=== PATIENT | female | born 1950 | race Caucasian/White ===

== ENCOUNTER 2022-04-19 13:04 | Emergency (ER) | payer MEDICARE, SELFPAY ==
--- NOTE | 2022-04-19 13:09 | ED.URI ---
HPI - URI/Sore Throat General Chief Complaint: Upper Respiratory Infection Stated Complaint: sore throat cough runny nose Time Seen by Provider: 04/19/22 13:09 Source: patient and RN notes reviewed History of Present Illness HPI Narrative: Patient is a 72-year-old female who presents the urgent care with complaints of sore throat, cough, runny nose and fever. Patient states symptoms started on and fever started last night. Patient has been taking NyQuil. States that her granddaughter was ill last week and has been on antibiotics for her illness. Patient is unsure if the granddaughter was diagnosed with strep. No other acute complaints. No acute distress noted. Patient aware of the plan of care. Some parts of this dictation were generated by voice recognition software and may contain typographical and/or grammatical inaccuracies. Related Data Home Medications Medication Instructions Recorded Confirmed buspirone 5 mg tablet 5 mg PO DAILY 04/29/21 04/19/22 digoxin 125 mcg (0.125 mg) tablet 125 mcg PO DAILY 04/29/21 04/19/22 esomeprazole magnesium 40 mg 40 mg PO DAILY 04/29/21 04/19/22 capsule,delayed release meloxicam 7.5 mg tablet 7.5 mg PO DAILY 04/29/21 04/19/22 sertraline 100 mg tablet 50 mg PO QPM 04/19/22 04/19/22 sertraline 100 mg tablet 100 mg PO QAM 04/19/22 04/19/22 Allergies Allergy/AdvReac Type Severity Reaction Status Date / Time Sulfa (Sulfonamide Allergy Severe Hives Verified 04/19/22 13:09 Antibiotics) meperidine [From Demerol] AdvReac Intermediate Vomiting Verified 04/19/22 13:09 Review of Systems Review of Systems: CONSTITUTIONAL: Reports a fever EYES: Denies visual changes, redness, or discharge. ENT: Reports of sore throat and runny nose CARDIOVASCULAR: Denies chest pain, palpitations, or edema. RESPIRATORY: Reports of cough without dyspnea GASTROINTESTINAL: Denies abdominal pain, nausea, vomiting, or diarrhea. GENITOURINARY: Denies dysuria or hematuria. SKIN: Denies rash or itching. MUSCULOSKELETAL: Denies back pain, joint pain, or myalgia. NEUROLOGIC: Denies headache, numbness, or weakness. All other systems reviewed are negative, except as documented in HPI. [facility] Past Medical History Medical History Acid reflux Arthritis Breast cancer 2014 Depression Heart palpitations Vaginal delivery x2 Surgical History Surgical History History of bilateral salpingo-oophorectomy 1975, Age 26 History of hysterectomy 1975, Age 26 History of lumpectomy 2013, left breast Family History Family History Mother Lung cancer Grandparent Cerebrovascular accident Social History Social History Smoking status: Former smoker Alcohol intake: never Substance use: never Comments At the time of my signature, I reviewed and agree with the nursing past medical, surgical, social, and family history. There is no relevant family history pertinent to the patient complaint. Exam Narrative: GENERAL: This is a well-nourished, well-developed patient, in no apparent distress. HEAD: normocephalic, atraumatic. EYES: PERRL. Sclera clear/white. Vision is grossly intact. EARS: External ears normal, auditory canals clear and without drainage, TMs normal without perforation. Hearing grossly intact. NOSE: External nose normal with no obvious nasal discharge, nares without redness, no rhinorrhea. THROAT: Mucous membranes moist, moderate erythema noted posterior pharynx with mild postnasal drainage NECK: Neck supple, non-tender without lymphadenopathy CARDIOVASCULAR: Regular rate and rhythm RESPIRATORY: Clear to auscultation. Breath sounds equal bilaterally. No wheezes, rales, or rhonchi. SKIN: warm, intact with no suspicious lesions or rash, good nino
[2022-04-19 13:12] VITALS: BP 115/94; PULSE 60; RESP 20; TEMP 36.5; O2SAT 100
[2022-04-19 13:25] VITALS: BP 115/94; PULSE 60; RESP 20; TEMP 36.5; O2SAT 100
== END 2022-04-19 13:45 | disposition home or self-care (01) ==
PROVIDERS: Emergency Provider Nurse Practitioner Family; PCP Internal Medicine Infectious Disease
DX: J02.0 Streptococcal pharyngitis (principal); Z87.891 Personal history of nicotine dependence; K21.9 Gastro-esophageal reflux disease without esophagitis; F32.A Depression, unspecified; M19.90 Unspecified osteoarthritis, unspecified site; Z85.3 Personal history of malignant neoplasm of breast
CPT/HCPCS: 87880; 99213; G0463

== ENCOUNTER 2024-05-27 14:47 | Emergency (ER) | payer MEDICARE, SELFPAY ==
[2024-05-27 15:03] VITALS: BP 134/58; PULSE 91; RESP 16; TEMP 37.2; O2SAT 98
--- NOTE | 2024-05-27 15:30 | ED_ITS ---
HPI - Wound/Laceration General Chief Complaint: Wound/Laceration Stated Complaint: fall, forehead is bleeding History of Present Illness HPI narrative: Patient fell 2 days ago and was evaluated in the emergency room with Dermabond placed to her forehead laceration. Patient is brought in today by her for evaluation of wound. No drink no drainage no bleeding no new injury. Related Data Home Medications Medication Instructions Recorded Confirmed buspirone 5 mg tablet 5 mg PO DAILY 04/29/21 04/19/22 albuterol sulfate 90 mcg/actuation inhalation 05/27/24 aerosol inhaler escitalopram oxalate 20 mg tablet mg 05/27/24 Allergies Allergy/AdvReac Type Severity Reaction Status Date / Time Sulfa (Sulfonamide Allergy Severe Hives Verified 05/27/24 15:11 Antibiotics) morphine Allergy Rash Verified 05/27/24 15:25 meperidine [From Demerol] AdvReac Intermediate Vomiting Verified 05/27/24 15:11 Review of Systems Review of Systems: CONSTITUTIONAL: Denies fever, chills, or sweats. EYES: Denies visual changes, redness, or discharge. ENT: Denies rhinorrhea, congestion, sore throat, or otalgia. CARDIOVASCULAR: Denies chest pain, palpitations, or edema. RESPIRATORY: Denies cough or dyspnea. GASTROINTESTINAL: Denies abdominal pain, nausea, vomiting, or diarrhea. GENITOURINARY: Denies dysuria or hematuria. SKIN: Denies rash or itching. MUSCULOSKELETAL: Denies back pain, joint pain, or myalgia. NEUROLOGIC: Denies headache, numbness, or weakness. PSYCHIATRIC: Denies anxiety or depression. [facility] Past Medical History Medical History Acid reflux Arthritis Breast cancer 2013 Depression Heart palpitations Vaginal delivery x2 Surgical History Surgical History History of bilateral salpingo-oophorectomy 1975, Age 26 History of hysterectomy 1975, Age 26 History of lumpectomy 2013, left breast Family History Family History Mother Lung cancer Grandparent Cerebrovascular accident Social History Social History (Reviewed 04/29/21 @ 13:14 by ERICKA Schmid Smoking status: Former smoker Alcohol intake: never Substance use: never Comments At time of signature, agree with nursing past medical, surgical, social and family history. There is no relevant family history pertinent to the presenting complaint Exam Narrative: GENERAL: Well-appearing, well-nourished, and in no acute distress. HEAD: Normocephalic, atraumatic. EYES: PERRLA and EOMI. ENT: Nares clear, no rhinorrhea or epistaxis. Mucous membranes moist. NECK: Supple. CHEST: Clear to auscultation. No respiratory distress. HEART: Regular rate and rhythm. No murmur heard. Normal peripheral pulses. ABDOMEN: Soft, nontender, nondistended, normal active bowel sounds. EXTREMITIES: Normal range of motion. No edema. SKIN: Warm, dry, no rash. Dermabond in place to laceration to forehead no bleeding noted edges well approximated no concern for secondary infection NEURO: No focal deficits. Alert and oriented x3. Kartik Coma Scale Eye Opening: Spontaneous 4 Kartik Coma Scale Motor: Obeys Commands 6 Kartik Coma Scale Verbal: Oriented 5 Kartik Coma Scale Total 15 Course Course Level of Care: Express Care Visit Vital Signs Vital signs: Vital Signs Temperature 37.2 C 05/27/24 15:03 Pulse Rate 91 05/27/24 15:03 Respiratory Rate 16 05/27/24 15:03 Blood Pressure 134/58 L 05/27/24 15:03 Pulse Oximetry 98 05/27/24 15:03 Oxygen Delivery Room Air 05/27/24 15:03 Temperature 37.2 C 05/27/24 15:03 Pulse Rate 91 05/27/24 15:03 Respiratory Rate 16 05/27/24 15:03 Blood Pressure 134/58 L 05/27/24 15:03 Pulse Oximetry 98 05/27/24 15:03 Oxygen Delivery Room Air 05/27/24 15:03 Please AISHWARYA schedule a followup visit with your personal physician for further evaluation and treatment. Including recheck and discussion of your blood pressure. If your symptoms persist, change or worsen significantly before you can contact your personal physician then please, without delay, go to the emergency department for further evaluation Discharge Plan Discharge Clinical Impression: Visit for wound check Patient Disposition: Home, Self-Care Condition: Stable Additional Instructions: Wash gently with warm soap and water do not scrub the area. Monitor for any signs or symptoms of infection Follow-up with primary care provider in 2-3 days If any new or worsening symptoms please go to ER immediately further evaluation treatment Prescriptions: No Action escitalopram oxalate 20 mg tablet albuterol sulfate 90 mcg/actuation HFA aerosol inhaler INHALATION buspirone 5 mg tablet 5 mg PO DAILY Follow-up/Referrals: Blaine,MD Jarod [Primary Care Provider] -
== END 2024-05-27 15:36 | disposition home or self-care (01) ==
PROVIDERS: Emergency Provider Nurse Practitioner Family; PCP Internal Medicine Infectious Disease
DX: Z48.01 Encounter for change or removal of surgical wound dressing (principal); Z87.891 Personal history of nicotine dependence; K21.9 Gastro-esophageal reflux disease without esophagitis; M19.90 Unspecified osteoarthritis, unspecified site; F32.A Depression, unspecified; Z85.3 Personal history of malignant neoplasm of breast
CPT/HCPCS: 99211; G0463

== ENCOUNTER 2024-08-27 12:44 | Emergency (ER) | payer MEDICARE, SELFPAY ==
--- OUTSIDE RECORDS SUMMARY | 2024-08-27 12:48 | XMS_ITS | Encounter Summary ---
Author Organization [facility] Address [address] [place] [address] Phone Care Team Providers Care Deputy Grand Jury Name Role Phone Jarod Valladares MD Primary Care Provider [phone] Jyothi Tanner MD Unavailable Donald Shirley MD, Michael Shultz Unavailable [phone] Marcio Bello MD Unavailable [phone] Catherine Joshi MD Unavailable [phone] Alea Larson MA Unavailable [phone] Encounter Details Date Type Department Care Team (Late st Contact Info) Description 08/24/2017 Orders Only [facility] [address] [place] [address] Jarod Valladares MD [address] [place] [id number] Social History Tobacco Use Types Packs/Day Years Used Date Smoking Tobacco: Former Smokeless Tobacco: Never Comments Unknown Sex and Gender Information Value Date Recorded Sex Assigned at Not on file Legal Sex Female 1:44 AM [employer] Gender Identity Not on file Sexual Orientation Not on file documented as of this encounter Plan of Treatment Not on file documented as of this encounter Procedures Procedure Name Priority Date/Time Associated Diagnosis Comments SCAN - RADIOLOGY/IMAGING 08/24/2017 3:04 PM [facility] documented in this encounter Results * SCAN - RADIOLOGY/IMAGING (08/24/2017 3:04 PM [employer]) Anatomical Region Laterality Modality Other Jarod Valladares MD Final Resu lt documented in this encounter Visit Diagnoses Not on filedocumented in this encounter Additional Health Concerns Infection Onset Date Last Indicated Resolved Time COVID: Suspected 10/26/2022 10/26/2022 10/26/2022 2:53 PM CDT documented as of this encounter Care Teams Deputy Grand Jury Relationship Specialty Start Date End Date Jarod Valladares MD [address] [place] [id number] PCP - General 10/16/16 Jyothi Tanner MD [address] [place] [address] [address] [place] [address] Referring Physician Medical Oncology 10/07/17 Michael Bennett Jr., MD [address] [place] [id number] Surgeon Orthopedic Surgery 10/07/17 Marcio Bello MD [address] [place] [address] Consulting Physician Gastroenterology 10/07/17 Catherine Joshi MD [address] [place] [phone] Size Worker Obstetrics and Gynecology 04/21/19 Alea Larson MA [address] [place] [address] [address] [place] [address] ACO Care Demolition Expert 05/26/24 05/29/24 documented as of this encounter
--- OUTSIDE RECORDS SUMMARY | 2024-08-27 12:48 | XMS_ITS | Clinical Summary ---
Author Organization [facility] Address [address] [place] [address] Phone Care Team Providers Care Wool Shearer Name Role Phone Unavailable Unavailable Unavailable Reason for Visit and Chief Complaint gynecologic annual exam - The Chief Complaint is: Annual Problems Includes: Problems addressed during this encounter and other active Problems All Visits Onset Date Resolved Date Provider Condition S tatus Breast Cancer 09/28/2013 ELIAS MCRAE MD Active Last Documented On 09/28/2013 2:50PM ; [facility] Note: S/P L breast lumpectomy Cervical Cancer 09/20/2012 ELIAS Cruz MD Active Last Documented On 09/20/2012 4:12PM ; [facility] Note: At age 26, treated with hysterecto my Depressive Disorder NEC 09/20/2012 ELIAS MCRAE MD Active Last Documented On 09/20/2012 4:08PM ; [facility] Note: takes zoloft Osteoarthritis 09/20/2012 ELIAS MCRAE MD Active Last Documented On 09/20/2012 4:09PM ; [facility] Note: uses lidoderm patch PALPITATIONS 09/20/2012 ELIAS MCRAE MD Active Last Documented On 09/20/2012 4:10PM ; [facility] Note: takes digoxin REFLUX ESOPHAGITIS 09/20/2012 ELIAS HARE MD Active Last Documented On 09/20/2012 4:08PM ; [facility] Note: takes nexium Uterine Cancer 09/20/2012 ELIAS MCRAE MD Active Last Documented On 09/20/2012 4:13PM ; [facility] Note: At age 26, treated with hysterecto my Plan of Treatment She follows with breast specialist and has MRI scheduled in March, and she also sees oncology Q3 months at [facility] for h/o breast cancer Pap done since 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 Pending Tests Order Diagnosis Results Due Ordering Shahzad brewster In office procedures - *Clia Waived Labs *FIT Test (Fecal Occult Test) Encntr for hydrate control tender exam (general) (routine) w/o abn findings 12/19/15 ELIAS MCRAE MD Last Documented On 8 8:55AM ; [facility] Instructions to patient Instructions for patient : B reast Self Exam discussed Last Documented On 6 9:12AM ; [facility] Education and Decision Aids were provided during visit for: STD screening offered and de clined Last Documented On 6 9:12AM ; [facility] Bone Mineral Density Screeni ng guidelines reviewed Last Documented On 6 9:12AM ; [facility] Patient Education: Daily page cium and vitamin D Last Documented On 6 9:12AM ; [facility] Patient Education: weight be aring exercise Last Documented On 6 9:12AM ; [facility] Colonoscopy screening guidel truong discussed Last Documented On 6 9:12AM ; [facility] Assessments Includes: Assessments from this encounter Findings - Routine pelvic exam - Last Documented On 12/05/2015 9:26AM ; [facility] - Screening Malig. Neoplasm Rectum - Last Documented On 12/05/2015 9:26AM ; [facility] Instructions Includes: Instructions from this encounter Instructions to patient Instructions for patient : B reast Self Exam discussed Last Documented On 6 9:12AM ; [facility] Education and Decision Aids were provided during visit for: STD screening offered and de clined Last Documented On 6 9:12AM ; [facility] Bone Mineral Density Screeni ng guidelines reviewed Last Documented On 6 9:12AM ; [facility] Patient Education: Daily page cium and vitamin D Last Documented On 6 9:12AM ; [facility] Patient Education: weight be aring exercise Last Documented On 6 9:12AM ; [facility] Colonoscopy screening guidel truong discussed Last Documented On 6 9:12AM ; [facility] Medical Equipment - Implanted Devices Includes: Current Devices No Medical Equipment Recorded Medications Includes: Medications discussed during this encounter and other current Medications Current Medications (continue as prescribed) Prolia 60MG/ML Subcutaneous Solution 02/16/2017 Prov ider: Diagnosis: Last Documented On 7 10:44AM By CARIDAD PEREZ ; [facility] BusPIRone HCl 5MG Oral Tablet 02/16/2017 Provider: Diagnosis: Last Documented On 7 10:23AM By ELISHA PEREZ ; [facility] Calcium + D 500-1000-40 MG-UNT-MCG Tablet Chewable Provider: Diagnosis: Last Documented On 12/05/2015 9:10AM By REBEKAH BELLA MA ; [facility] Exemestane 25 MG Tablet 08/23/2014 Provider: Diagnosis: Last Documented On 10/23/2014 9:12AM By MEGHANN MONTES Lul ; [facility] Zoloft 100 MG OR TABS 09/28/2013 Provider: Diagnosis: Last Documented On 09/28/2013 2:46PM By GER COLBY ; [facility] Zoloft 50 MG OR TABS 09/28/2013 Provider: Diagnosis: Last Documented On 09/28/2013 2:47PM By GER COLBY ; [facility] Digoxin 250 MCG OR TABS 09/20/2012 Provider: Diagnosis: takes for palpitations Last Documented On 3 3:14PM By CARLY FLORES LPN ; [facility] NexIUM 40 MG OR PACK 09/20/2012 Provider: Diagnosis: Last Documented On 3 3:14PM By CARLY FLORES LPN ; [facility] Past Medications on file Nitrofurantoin Macrocrystal 100 MG Capsule 02/08/2015 - 02/15/2015 Provider: MARC MORA BC Diagnosis: HEMATURIA NOS 1 BID USE DIRECTED W/FOOD Last Documented On 5 11:09AM By MARC MORA-BC ; [facility] Terconazole 0.4% VA CREA 04/06/2013 - 04/13/2013 Provi ramila: ELIAS MCRAE MD Diagnosis: i applicatorful per vagina daily for 7 days Last Documented On 04/06/2013 1:23PM By ELIAS MCRAE MD ; [facility] Premarin 0.625 MG OR TABS 09/15/2011 - 09/09/2012 Prov ider: HEIDY ROBINS M.D. Diagnosis: Last Documented On 2 1:09PM By DR. 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/[place] Last Documented On 1 11:03AM By CARLY FLORES LPN ; [facility] Medications Administered Includes: Administered Medications from this encounter No Administered Medications Recorded Vital Signs Includes: Vital Signs from this encounter Vital Name 12/05/2015 09:03A Blood Pressure Sitting (mmHg) 132/80 Height (in) 65.5 Weight (lb) 141 Body Mass Index (kg/m2) 23.1 Body Surface Area (m2) 1.7 Last Documented: On 12/05/2015 9:07AM ; [facility] Results Includes: Results discussed during this encounter No Results Recorded For Specified Dates History of Present Illness Includes: History of Present Illness from this encounter LACIE GUPTA is a 65 year old female. - No unusual bleeding. - No pelvic pain. - No vaginal discharge. Social History Description Last Updated In monogamous relationship 12/05/2015 Last Documented On 6 9:26AM ; [facility] Non-smoker 12/05/2015 Last Documented On 6 9:26AM ; [facility] Sexually active 12/05/2015 Last Documented On 6 9:26AM ; [facility] Smoking status : Former smoker 6 Last Documented On 6 9:26AM ; [facility] Procedures and Surgical History Includes: Procedures from this encounter Procedures Code Diagnosis Performing Provider Service L ocation Service Date Clinical summary provided to patient Last Documented On 6 9:12AM ; [facility] cervical Pap smear 03012 Last Documented On 6 9:12AM ; [facility] fecal occult blood test was negative 72302 Last Documented On 6 9:12AM ; [facility] Surgical History Last Updated History of hysterectomy [facility] 02/16/2017 Last Documented On 6 9:08AM ; [facility] Surgical / procedural histor y R knee surgery ~R thumb surgery ~L breast lumpectomy ~hernia surgery september 2013 ~surgery on porlasped bladder 05/201512/05/2015 Last Documented On 6 9:26AM ; [facility] Surgical / procedural history 12/05/2015 Last Documented On 6 9:26AM ; [facility] History of hysterectomy at age 26 2015 Last Documented On 6 9:26AM ; [facility] Surgical history unchanged 02/08/2015 Last Documented On 6 9:08AM ; [facility] History of cholecystectomy 09/20/2012 Last Documented On 6 9:08AM ; [facility] History of total abdominal hysterectomy 09/20/2012 Last Documented On 6 9:08AM ; [facility] History of tubal ligation 09/20/2012 Last Documented On 6 9:08AM ; [facility] Bilateral salpingo-oophorectomy 09/09/19 11 Last Documented On 6 9:08AM ; [facility] Breast Biopsy 09/09/2010 Last Documented On 6 9:08AM ; [facility] History of appendectomy 09/09/2010 Last Documented On 6 9:08AM ; [facility] No Dilation + Curettage 09/09/2010 Last Documented On 6 9:08AM ; [facility] No Ectopic surgery 09/09/2010 Last Documented On 6 9:08AM ; [facility] No Endometrial Ablation 09/09/2010 Last Documented On 6 9:08AM ; [facility] No history of Loop electrode excision of cervix (LEEP) 09/09/2010 Last Documented On 6 9:08AM ; [facility] No history of vaginal hysterectomy 09/09 Last Documented On 6 9:08AM ; [facility] No Laparoscopic Hysterectomy 09/09/2010 Last Documented On 6 9:08AM ; [facility] No Ovarian Cystectomy 09/09/2010 Last Documented On 6 9:08AM ; [facility] No Tonsillectomy 09/09/2010 Last Documented On 6 9:08AM ; [facility] Medical History Includes: Medical History addressed during this encounter Description Last Updated Last pap smear date 201212/05/2015 Last Documented On 6 9:26AM ; [facility] Last mammogram date: 08/201512/05/2015 Last Documented On 6 9:26AM ; [facility] Result: normal 12/05/2015 Last Documented On 6 9:26AM ; [facility] A colonoscopy was performed 2012 016 Last Documented On 6 9:26AM ; [facility] 2 12/05/2015 Last Documented On 6 9:26AM ; [facility] LMP: 1982 12/05/2015 Last Documented On 6 9:26AM ; [facility] Para 2 12/05/2015 Last Documented On 6 9:26AM ; [facility] Patient recently had a dexa scan 08/07/19 14 12/05/2015 Last Documented On 6 9:26AM ; [facility] Result: normal 12/05/2015 Last Documented On 6 9:26AM ; [facility] Family History Includes: Family History addressed during this encounter No Family History Recorded Review of Systems Includes: Review of Systems from this encounter Systemic: No recent weight change. Head: No headache. Eyes: No vision problems. Otolaryngeal: No hoarseness. Cardiovascular: No chest pain or discomfort and no palpitations. Pulmonary: No shortness of breath. Gastrointestinal: Normal appetite. No nausea, no vomiting, and no hematochezia. No diarrhea and no constipation. Genitourinary: No nocturia. No urinary loss of control and no dysuria. Musculoskeletal: No arthralgias and no localized joint swelling. Neurological: No tingling and no numbness. Psychological: No anxiety, no depression, and no sleep disturbances. Mental Status Includes: Mental Status from this encounter Description No anxiety Functional Status Includes: Functional Status from this encounter No Functional Status Recorded Physical Exam Includes: Physical Exam from this encounter Allergies Includes: Active Allergies Substance Type Reaction Onset Date Resolved Date Statu s Tetanus Toxoid Adsorbed Intolerance 07/17/2009 Active Last Documented On 7 10:23AM ; [facility] Sulfa Antibiotics Allergy 09/09/2010 A ctive Last Documented On 7 10:23AM ; [facility] Morphine Sulfate Allergy 02/16/2017 Ac tive Last Documented On 7 10:24AM ; [facility] Demerol Allergy 09/20/2012 Active Last Documented On 7 10:23AM ; [facility] Encounters Encounter Provider Location Date Check-In Time Check-Out Time Diagnosis MOTOR OVERHAULER EXAM ELIAS MCRAE MD [facility] UNDERGROUND HEAVY EQUIPMENT OPERATOR 6 9:00AM 9:23AM Routine Pelvic Exam,Hoa Hogan. Neoplasm Rectum Clinical Notes Includes: Clinical Notes from this encounter No Clinical Notes Recorded
--- OUTSIDE RECORDS SUMMARY | 2024-08-27 12:48 | XMS_ITS | Clinical Summary ---
Author Organization [facility] Address [address] [place] [address] Care Team Providers Care Manager Cosmetic Name Role Phone Unknown, Provider Primary Care Provider Unavaila ble Source Comments [facility],non-owned Affiliates and Associated Physician Practices is amultiple site organization consisting of ambulatory clinics and hospital sitesin [place], [place], [place] and [place]. This disclosure is being madepursuant to the Care Everywhere program and may not contain all information available regarding this patient. Last updated 18.[facility] Allergies Active Allergy Reactions Criticality Noted Date Comments Meperidine Nausea and/or Vomiting 11/19/2017 Morphine Nausea and/or Vomiting 11/19/2017 Sulfa Drugs Nausea and/or Vomiting 11/19/2017 Medications * Be aware that medications may not be up to date on this document. Alwaysverify current medications with the patient. Medication Sig Dispensed Refills Start Date End Date Status albuterol HFA (PROVENTIL;VENTOLIN;P ROAIR) 108 (90 BASE) MCG/ACT inhaler Inhale 2 puffs by mouth every 6 hours as needed Active busPIRone (BUSPAR) 5 MG tablet Take 5 mg by mouth 3 times daily Active DIGOXIN PO Active esomeprazole (NEXIUM) 40 MG capsule Take 40 mg by mouth daily before breakfast Active exemestane (AROMASIN) 25 MG tablet Take 25 mg by mouth once daily Active sertraline (ZOLOFT) 100 MG tablet Take 100 mg by mouth once daily Active Active Problems Problem Noted Date Diagnosed Date Bilateral chronic otitis media 11/19/2017 Tympanic membrane perforation, left 11/19/2017 Incomplete tear of right rotator cuff 08/26/2017 Acute bronchitis due to other specified organism s 06/07/2017 Chronic eczematous otitis externa of both ears 0 01/21/2017 Conductive hearing loss, tympanic membrane 01/21 Dysfunction of both eustachian tubes 01/21/2017 Retraction of tympanic membrane of both ears 12/2016 Osteoporosis 01/07/2017 Chronic low back pain 12/02/2013 Overview (11/19/2017): Overview: Chronic low back pain Gastroesophageal reflux disease without esophagi tis 12/02/2013 Overview (11/19/2017): Overview: GERD (gastroesophageal reflux disease) Major depressive disorder in full remission 11/16 Overview (11/19/2017): Overview: Depression Menopausal syndrome 12/02/2013 Overview (11/19/2017): Overview: Menopausal syndrome Supraventricular tachycardia 12/02/2013 Overview (11/19/2017): Overview: SVT (supraventricular tachycardia) History of malignant neoplasm of breast 08/02/19 14 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 11/17/2012 Resolved Problems Problem Noted Date Diagnosed Date Resolved Date Urinary tract infection 01/14/201711/16 Social History Tobacco Use Types Packs/Day Years Used Date Smoking Tobacco: Former Cigarettes Q uit: 2013 Smokeless Tobacco: Never Alcohol Use Standard Drinks/Week Comments No 0 (1 standard drink = 0.6 oz pur e alcohol) Sex and Gender Information Value Date Recorded Sex Assigned at Not on file Gender Identity Not on file Sexual Orientation Not on file Last Filed Vital Signs Vital Sign Reading Time Taken Comments Blood Pressure 139/92 11/19/2017 2:36 PM CDT Pulse 67 11/19/2017 2:36 PM CDT Temperature - - Respiratory Rate - - Oxygen Saturation - - Inhaled Oxygen Concentration - - Weight 68 kg (150 lb) 11/19/2017 2:36 PM CDT Height 167.6 cm (5' 6 ) 11/19/2017 2:36 PM CDT Body Mass Index 24.21 11/19/2017 2:36 PM CDT Plan of Treatment Health Maintenance Due Date Last Done Comments BONE DENSITY TESTING 1950 COLOGUARD (AGES 45-75) - COL ON CA SCREENING 1950 COLON MONITORING 1950 COLONOSCOPY - COLON CA SCREENING 1950 CT COLONOGRAPHY - COLON CA SCREENING 1950 Colorectal Cancer Screening 1950 FIT - COLON CA SCREENING 1950 FLEX SIG - COLON CA SCREENING 1950 LIPID TESTING 1950 MAMMOGRAM 1950 MEDICARE AWV 12 MONTHS 1950 HEPATITIS C SCREENING 04/06/1969 DTAP/TDAP/TD VACCINES (1 - Tdap) 1970 PNEUMOCOCCAL VACCINE 50+ (1 of 1 - PCV) 2001 ZOSTER VACCINE (1 of 2) 2001 COVID-19 VACCINE (1 - 2023-2 5 season) 2024 INFLUENZA VACCINE (#1) 2024 DEPRESSION SCREENING 07/19/2024 Respiratory Syncytial Virus (RSV) Vaccine Pt: or over 60 yrs (1 - 1-dose 75+ series) 2026 HEPATITIS B VACCINE Aged Out No longe r eligible based on patient's age to complete this topic HIB VACCINE Aged Out No longer eligi ble based on patient's age to complete this topic HPV VACCINE Aged Out No longer eligi ble based on patient's age to complete this topic MENINGOCOCCAL (Group B) VACCINE Aged Out No longer eligible based on patient's age to complete this topic MENINGOCOCCAL VACCINE Aged Out No juan olegario eligible based on patient's age to complete this topic Care Teams Manager Cosmetic Relationship Specialty Start Date End Date Unknown, Provider PCP - General 11/16/17
--- OUTSIDE RECORDS SUMMARY | 2024-08-27 12:48 | XMS_ITS | Clinical Summary ---
Author Organization [facility] Address [address] [place] [address] Phone Care Team Providers Care Field Cane Scaler Helper Name Role Phone Unavailable Unavailable Unavailable Reason for Visit and Chief Complaint CANCELLED Problems Includes: Problems addressed during this encounter and other active Problems All Visits Onset Date Resolved Date Provider Condition S tatus Breast Cancer 09/28/2013 ELIAS MCRAE MD Active Last Documented On 09/28/2013 2:50PM ; [facility] Note: S/P L breast lumpectomy Cervical Cancer 09/20/2012 ELIAS Cruz MD Active Last Documented On 09/20/2012 4:12PM ; [facility] Note: At age 26, treated with hysterecto my Depressive Disorder NEC 09/20/2012 ELIAS MCRAE MD Active Last Documented On 09/20/2012 4:08PM ; [facility] Note: takes zoloft Osteoarthritis 09/20/2012 ELIAS MCRAE MD Active Last Documented On 09/20/2012 4:09PM ; [facility] Note: uses lidoderm patch PALPITATIONS 09/20/2012 ELIAS MCRAE MD Active Last Documented On 09/20/2012 4:10PM ; [facility] Note: takes digoxin REFLUX ESOPHAGITIS 09/20/2012 ELIAS HARE MD Active Last Documented On 09/20/2012 4:08PM ; [facility] Note: takes nexium Uterine Cancer 09/20/2012 ELIAS MCRAE MD Active Last Documented On 09/20/2012 4:13PM ; [facility] Note: At age 26, treated with hysterecto my Plan of Treatment No Plan of Treatment Recorded Assessments Includes: Assessments from this encounter No Assessments Recorded Medical Equipment - Implanted Devices Includes: Current Devices No Medical Equipment Recorded Medications Includes: Medications discussed during this encounter and other current Medications Current Medications (continue as prescribed) Prolia 60MG/ML Subcutaneous Solution 02/16/2017 Prov ider: Diagnosis: Last Documented On 7 10:44AM By CARIDAD PEREZ ; [facility] BusPIRone HCl 5MG Oral Tablet 02/16/2017 Provider: Diagnosis: Last Documented On 7 10:23AM By ELISHA PEREZ ; [facility] Calcium + D 500-1000-40 MG-UNT-MCG Tablet Chewable Provider: Diagnosis: Last Documented On 12/05/2015 9:10AM By REBEKAH BELLA MA ; [facility] Exemestane 25 MG Tablet 08/23/2014 Provider: Diagnosis: Last Documented On 10/23/2014 9:12AM By MEGHANN PEREZ ; [facility] Zoloft 100 MG OR TABS 09/28/2013 Provider: Diagnosis: Last Documented On 09/28/2013 2:46PM By GER COLBY ; [facility] Zoloft 50 MG OR TABS 09/28/2013 Provider: Diagnosis: Last Documented On 09/28/2013 2:47PM By GER COLBY ; [facility] Digoxin 250 MCG OR TABS 09/20/2012 Provider: Diagnosis: takes for palpitations Last Documented On 3 3:14PM By CARLY FLORES LPN ; [facility] NexIUM 40 MG OR PACK 09/20/2012 Provider: Diagnosis: Last Documented On 3 3:14PM By CARLY FLORES LPN ; [facility] Medications Administered Includes: Administered Medications from this encounter No Administered Medications Recorded Results Includes: Results discussed during this encounter No Results Recorded For Specified Dates History of Present Illness Includes: History of Present Illness from this encounter No History of Present Illness Recorded Social History No Social History Recorded - Smoking Status Unknown Medical History Includes: Medical History addressed during this encounter No Medical History Recorded Family History Includes: Family History addressed during this encounter No Family History Recorded Review of Systems Includes: Review of Systems from this encounter No Review of Systems Recorded Mental Status Includes: Mental Status from this encounter No Mental Status Recorded Functional Status Includes: Functional Status from this encounter No Functional Status Recorded Physical Exam Includes: Physical Exam from this encounter No Physical Exam Recorded Allergies Includes: Active Allergies Substance Type Reaction Onset Date Resolved Date Statu s Tetanus Toxoid Adsorbed Intolerance 07/17/2009 Active Last Documented On 7 10:23AM ; [facility] Sulfa Antibiotics Allergy 09/09/2010 A ctive Last Documented On 7 10:23AM ; [facility] Morphine Sulfate Allergy 02/16/2017 Ac tive Last Documented On 7 10:24AM ; [facility] Demerol Allergy 09/20/2012 Active Last Documented On 7 10:23AM ; [facility] Encounters Encounter Provider Location Date Check-In Time Check-Out Time Diagnosis CANCELLED ELIAS MCRAE MD [facility] TERRITORY SALES REPRESENTATIVE 06/18/2014 11:00AM 11:59PM Clinical Notes Includes: Clinical Notes from this encounter No Clinical Notes Recorded
--- OUTSIDE RECORDS SUMMARY | 2024-08-27 12:48 | XMS_ITS | Encounter Summary ---
Author Organization [facility] Address [address] [place] [address] Phone Care Team Providers Care Commercial Construction Project Manager Name Role Phone Jarod Valladares MD Primary Care Provider [phone] Jyothi Tanner MD Unavailable Donald Shirley MD, Michael Shultz Unavailable [phone] Marcio Bello MD Unavailable [phone] Catherine Joshi MD Unavailable [phone] Alea Larson MA Unavailable [phone] Encounter Details Date Type Department Care Team (Late st Contact Info) Description 08/24/2017 Orders Only [facility] [address] [place] [address] Jarod Valladares MD [address] [place] [id number] Social History Tobacco Use Types Packs/Day Years Used Date Smoking Tobacco: Former Smokeless Tobacco: Never Comments Unknown Sex and Gender Information Value Date Recorded Sex Assigned at Not on file Legal Sex Female 1:44 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 BEVERAGE SUPERVISOR Gender Identity Not on file Sexual Orientation Not on file documented as of this encounter Plan of Treatment Not on file documented as of this encounter Procedures Procedure Name Priority Date/Time Associated Diagnosis Comments SCAN - LABS 08/24/2017 3:10 PM FOOD BEVERAGE SUPERVISOR documented in this encounter Results * SCAN - LABS (08/24/2017 3:10 PM FOOD BEVERAGE SUPERVISOR) Jarod Valladares MD Final Resu lt documented in this encounter Visit Diagnoses Not on filedocumented in this encounter Additional Health Concerns Infection Onset Date Last Indicated Resolved Time COVID: Suspected 10/26/2022 10/26/2022 10/26/2022 2:53 PM CDT documented as of this encounter Care Teams Commercial Construction Project Manager Relationship Specialty Start Date End Date Jarod Valladares MD [address] [place] [id number] PCP - General 10/16/16 Jyothi Tanner MD [address] [place] [address] [address] [place] [address] Referring Physician Medical Oncology 10/07/17 Michael Bennett Jr., MD [address] [place] [id number] Surgeon Orthopedic Surgery 10/07/17 Marcio Bello MD [address] [place] [phone] Consulting Physician Gastroenterology 10/07/17 Catherine Joshi MD [address] [place] [phone] Talent Manager Obstetrics and Gynecology 04/21/19 Alea Larson MA [address] [place] [address] [address] [place] [address] ACO Care Manager Transportation Planning 05/26/24 05/29/24 documented as of this encounter
--- OUTSIDE RECORDS SUMMARY | 2024-08-27 12:48 | XMS_ITS ---
Author Organization [facility] Address [address] [place] [address] Phone Care Team Providers Care Rn Pediatric Icu Name Role Phone Unavailable Unavailable Unavailable Problems Includes: Active, inactive, and resolved Problems All Visits Onset Date Resolved Date Provider Condition S tatus Breast Cancer 09/28/2013 ELIAS MCRAE MD Active Last Documented On 09/28/2013 2:50PM ; [facility] Note: S/P L breast lumpectomy Cervical Cancer 09/20/2012 ELIAS Cruz MD Active Last Documented On 09/20/2012 4:12PM ; [facility] Note: At age 26, treated with hysterecto my Depressive Disorder NEC 09/20/2012 ELIAS MCRAE MD Active Last Documented On 09/20/2012 4:08PM ; [facility] Note: takes zoloft Osteoarthritis 09/20/2012 ELIAS MCRAE MD Active Last Documented On 09/20/2012 4:09PM ; [facility] Note: uses lidoderm patch PALPITATIONS 09/20/2012 ELIAS MCRAE MD Active Last Documented On 09/20/2012 4:10PM ; [facility] Note: takes digoxin REFLUX ESOPHAGITIS 09/20/2012 ELIAS HARE MD Active Last Documented On 09/20/2012 4:08PM ; [facility] Note: takes nexium Uterine Cancer 09/20/2012 ELIAS MCRAE MD Active Last Documented On 09/20/2012 4:13PM ; [facility] Note: At age 26, treated with hysterecto my Cardiac Failure 09/09/2010 ELIAS Cruz MD Inactive Last Documented On 3 4:07PM ; [facility] HEARTBURN 09/09/2010 ELIAS MCRAE MD Inactive Last Documented On 3 4:07PM ; [facility] Note: takes nexium for gerd HYPERTENSION NOS 09/09/2010 ELIAS MCRAE MD In active Last Documented On 3 4:07PM ; [facility] PRESENILE DEPRESSION 09/09/2010 ELIAS Hardin Inactive Last Documented On 3 4:08PM ; [facility] Note: takes zoloft Plan of Treatment Findings Encounter Date Ordered Clinical summary pro vided to patient PROBLEM VISIT with MARC TORRES RN [facility] 02/08/2015 Last Documented On 5 12:26PM ; 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 Instructions to patient Instructions for patient : B reast Self Exam discussed Last Documented On 7 10:28AM ; [facility] Instructions for patient : B reast Self Exam discussed Last Documented On 6 9:12AM ; [facility] Instructions for patient : B reast Self Exam discussed Last Documented On 5 9:15AM ; [facility] Instructions for patient : B reast Self Exam discussed Last Documented On 4 2:53PM ; [facility] Instructions for patient : K eep the area around the vulva dry. Allow the area to have exposure to air. Avoid irritants such as fabric softeners and perfumed soaps.~ Last Documented On 3 1:25PM ; [facility] Instructions for patient : B reast Self Exam discussed Last Documented On 3 3:38PM ; [facility] Instructions for patient : B reast Self Exam discussed. Reviewed monthly self breast examination and technique Last Documented On 2 1:07PM ; [facility] Recommend diet and exercise at least 30 min three times per week Last Documented On 2 1:07PM ; [facility] Discussed Gardasil vaccinati on and recommend vaccination for HPV prevention. Handout given. Patient undertsands sexual transmission of high-risk HPV and association with abnormal pap smear and cervical cancer. recommend to decrease high risk behaviors such as: number of sexual partners, smoking, and contraceptive use Last Documented On 2 1:07PM ; [facility] Recommend preventative vacci nation including but not limited to influenza/flu vaccine, DTP, Rubella, Hepatitis B vaccination series Last Documented On 2 1:07PM ; [facility] Recommend annual pap smear e xamination or every three year if high risk hpv negative and 3 consecutive normal pap examination during preceding three years Last Documented On 2 1:07PM ; [facility] Recommend TSH, fasting gluco se, fasting lipid panel, CBC, BMP Last Documented On 2 1:07PM ; [facility] Recommend Calcium supplement ation and weight bearing exercise Last Documented On 2 1:07PM ; [facility] Recommended Bone Density Last Documented On 2 1:07PM ; [facility] Recommended Colonoscopy Pt r eferred to Gastroenetrologist. Pt understands that recommendation for colonoscopy is every 10 years after the age of 50 or age of 40 if first degree relative with history of colon cancer. Patient understands that failure to follow recommendation can lead to delayed diagnosis of colon cancer and patient accepts all responsibility regarding scheduling and follow up with estate planner Last Documented On 2 1:07PM ; [facility] Instructions for patient : B reast Self Exam discussed. Reviewed monthly self breast examination and technique Last Documented On 1 1:52PM ; [facility] Recommend diet and exercise at least 30 min three times per week Last Documented On 1 1:52PM ; [facility] Discussed Gardasil vaccinati on and recommend vaccination for HPV prevention. Handout given. Patient undertsands sexual transmission of high-risk HPV and association with abnormal pap smear and cervical cancer. recommend to decrease high risk behaviors such as: number of sexual partners, smoking, and contraceptive use Last Documented On 1 1:52PM ; [facility] Recommend preventative vacci nation including but not limited to influenza/flu vaccine, DTP, Rubella, Hepatitis B vaccination series Last Documented On 1 1:52PM ; [facility] Recommend annual pap smear e xamination or every three year if high risk hpv negative and 3 consecutive normal pap examination during preceding three years Last Documented On 1 1:52PM ; [facility] Recommend TSH, fasting gluco se, fasting lipid panel, CBC, BMP Last Documented On 1 1:52PM ; [facility] Recommend Calcium supplement ation and weight bearing exercise Last Documented On 1 1:52PM ; [facility] Recommended Bone Density Last Documented On 1 1:52PM ; [facility] Recommended Colonoscopy Pt r eferred to Gastroenetrologist. Pt understands that recommendation for colonoscopy is every 10 years after the age of 50 or age of 40 if first degree relative with history of colon cancer. Patient understands that failure to follow recommendation can lead to delayed diagnosis of colon cancer and patient accepts all responsibility regarding scheduling and follow up with estate planner Last Documented On 1 1:52PM ; [facility] Education and Decision Aids were provided during visit for: STD screening offered and de clined Last Documented On 7 10:28AM ; [facility] Bone Mineral Density Screeni ng guidelines reviewed Last Documented On 7 10:28AM ; [facility] Patient Education: Daily page cium and vitamin D Last Documented On 7 10:28AM ; [facility] Patient Education: weight be aring exercise Last Documented On 7 10:28AM ; [facility] Colonoscopy screening guidel truong discussed Last Documented On 7 10:28AM ; [facility] STD screening offered and de clined Last Documented On 6 9:12AM ; [facility] Bone Mineral Density Screeni ng guidelines reviewed Last Documented On 6 9:12AM ; [facility] Patient Education: Daily page cium and vitamin D Last Documented On 6 9:12AM ; [facility] Patient Education: weight be aring exercise Last Documented On 6 9:12AM ; [facility] Colonoscopy screening guidel truong discussed Last Documented On 6 9:12AM ; [facility] STD screening offered and de clined Last Documented On 5 9:15AM ; [facility] Bone Mineral Density Screeni ng guidelines reviewed Last Documented On 5 9:15AM ; [facility] Patient Education: Daily page cium and vitamin D Last Documented On 5 9:15AM ; [facility] Patient Education: weight be aring exercise Last Documented On 5 9:15AM ; [facility] Colonoscopy screening guidel truong discussed Last Documented On 5 9:15AM ; [facility] STD screening offered and de clined Last Documented On 4 2:53PM ; [facility] Bone Mineral Density Screeni ng guidelines reviewed Last Documented On 4 2:53PM ; [facility] Patient Education: Daily page cium and vitamin D Last Documented On 4 2:53PM ; [facility] Patient Education: weight be aring exercise Last Documented On 4 2:53PM ; [facility] Colonoscopy screening guidel truong discussed Last Documented On 4 2:53PM ; [facility] STD screening offered and de clined Last Documented On 3 3:38PM ; [facility] Bone Mineral Density Screeni ng guidelines reviewed Last Documented On 3 3:38PM ; [facility] Patient Education: Daily page cium and vitamin D Last Documented On 3 3:38PM ; [facility] Patient Education: weight be aring exercise Last Documented On 3 3:38PM ; [facility] Colonoscopy screening guidel truong discussed Last Documented On 3 3:38PM ; [facility] Assessments Includes: Assessments for all patient encounters Findings Encounter Date Routine pelvic exam [employer] EXAM with ELIAS MCRAE MD 02/16/2017 Last Documented On 7 11:40AM ; [facility] Screening Malig. Neoplasm Rectum [employer] EXAM with Dagmar MCRAE MD 02/16/2017 Last Documented On 7 11:40AM ; [facility] Routine pelvic exam [employer] EXAM with ELIAS MCRAE MD 12/05/2015 Last Documented On 6 9:26AM ; [facility] Screening Malig. Neoplasm Rectum [employer] EXAM with Dagmar MCRAE MD 12/05/2015 Last Documented On 6 9:26AM ; [facility] Hematuria PROBLEM VISIT with MARC TORRES RN [facility] 02/08/2015 Last Documented On 5 12:26PM ; [facility] Vaginal wall prolapse with pola slaughter cystocele PROBLEM VISIT with MARC TORRES RN [facility] 02/08/2015 Last Documented On 5 12:26PM ; [facility] Routine pelvic exam [employer] EXAM with ELIAS MCRAE MD 10/23/2014 Last Documented On 5 9:28AM ; [facility] Screening Malig. Neoplasm Rectum [employer] EXAM with Dagmar MCRAE MD 10/23/2014 Last Documented On 5 9:28AM ; [facility] Routine pelvic exam [employer] EXAM with ELIAS MCRAE MD 09/28/2013 Last Documented On 4 3:08PM ; [facility] Screening Malig. Neoplasm Rectum [employer] EXAM with Dagmar MCRAE MD 09/28/2013 Last Documented On 4 3:08PM ; [facility] Mackenzie albicans vulvovaginitis PROBLEM VISIT wi ELIAS MCRAE MD 04/06/2013 Last Documented On 3 1:27PM ; [facility] Routine pelvic exam NEW [employer] EXAM with ELIAS YANG MD 09/20/2012 Last Documented On 3 4:13PM ; [facility] Asymptomatic postmenopausal status [employer] EXAM with HEIDY ROBINS M.D. 09/15/2011 Last Documented On 2 1:10PM ; [facility] MAMMOGRAM SCREENING [employer] EXAM with HEIDY NUNES M.D. 09/15/2011 Last Documented On 2 1:10PM ; [facility] NORMAL FEMALE EXAM [employer] EXAM with HEIDY MARKS M.D. 09/15/2011 Last Documented On 2 1:10PM ; [facility] Screening Malig. Neoplasm Rectum [employer] EXAM with Dagmar ROBINS M.D. 09/15/2011 Last Documented On 2 1:10PM ; [facility] Lichen sclerosus et atrophicus PROBLEM VISIT wit h HEIDY ROBINS M.D. 02/18/2011 Last Documented On 1 3:16PM ; [facility] URINARY FREQUENCY PROBLEM VISIT with HEIDY SCHMITZ M.D. 02/18/2011 Last Documented On 1 3:16PM ; [facility] Asymptomatic postmenopausal status [employer] EXAM with HEIDY ROBINS M.D. 09/09/2010 Last Documented On 1 2:01PM ; [facility] MAMMOGRAM SCREENING [employer] EXAM with HEIDY NUNES M.D. 09/09/2010 Last Documented On 1 2:01PM ; [facility] NORMAL FEMALE EXAM [employer] EXAM with HEIDY MARKS M.D. 09/09/2010 Last Documented On 1 2:01PM ; [facility] Screening Malig. Neoplasm Rectum [employer] EXAM with Dagmar ROBINS M.D. 09/09/2010 Last Documented On 1 2:01PM ; [facility] Instructions Includes: Instructions for all patient encounters Instructions to patient Instructions for patient : B reast Self Exam discussed Last Documented On 7 10:28AM ; [facility] Instructions for patient : B reast Self Exam discussed Last Documented On 6 9:12AM ; [facility] Instructions for patient : B reast Self Exam discussed Last Documented On 5 9:15AM ; [facility] Instructions for patient : B reast Self Exam discussed Last Documented On 4 2:53PM ; [facility] Instructions for patient : K eep the area around the vulva dry. Allow the area to have exposure to air. Avoid irritants such as fabric softeners and perfumed soaps.~ Last Documented On 3 1:25PM ; [facility] Instructions for patient : B reast Self Exam discussed Last Documented On 3 3:38PM ; [facility] Instructions for patient : B reast Self Exam discussed. Reviewed monthly self breast examination and technique Last Documented On 2 1:07PM ; [facility] Recommend diet and exercise at least 30 min three times per week Last Documented On 2 1:07PM ; [facility] Discussed Gardasil vaccinati on and recommend vaccination for HPV prevention. Handout given. Patient undertsands sexual transmission of high-risk HPV and association with abnormal pap smear and cervical cancer. recommend to decrease high risk behaviors such as: number of sexual partners, smoking, and contraceptive use Last Documented On 2 1:07PM ; [facility] Recommend preventative vacci nation including but not limited to influenza/flu vaccine, DTP, Rubella, Hepatitis B vaccination series Last Documented On 2 1:07PM ; [facility] Recommend annual pap smear e xamination or every three year if high risk hpv negative and 3 consecutive normal pap examination during preceding three years Last Documented On 2 1:07PM ; [facility] Recommend TSH, fasting gluco se, fasting lipid panel, CBC, BMP Last Documented On 2 1:07PM ; [facility] Recommend Calcium supplement ation and weight bearing exercise Last Documented On 2 1:07PM ; [facility] Recommended Bone Density Last Documented On 2 1:07PM ; [facility] Recommended Colonoscopy Pt r eferred to Gastroenetrologist. Pt understands that recommendation for colonoscopy is every 10 years after the age of 50 or age of 40 if first degree relative with history of colon cancer. Patient understands that failure to follow recommendation can lead to delayed diagnosis of colon cancer and patient accepts all responsibility regarding scheduling and follow up with estate planner Last Documented On 2 1:07PM ; [facility] Instructions for patient : B reast Self Exam discussed. Reviewed monthly self breast examination and technique Last Documented On 1 1:52PM ; [facility] Recommend diet and exercise at least 30 min three times per week Last Documented On 1 1:52PM ; [facility] Discussed Gardasil vaccinati on and recommend vaccination for HPV prevention. Handout given. Patient undertsands sexual transmission of high-risk HPV and association with abnormal pap smear and cervical cancer. recommend to decrease high risk behaviors such as: number of sexual partners, smoking, and contraceptive use Last Documented On 1 1:52PM ; [facility] Recommend preventative vacci nation including but not limited to influenza/flu vaccine, DTP, Rubella, Hepatitis B vaccination series Last Documented On 1 1:52PM ; [facility] Recommend annual pap smear e xamination or every three year if high risk hpv negative and 3 consecutive normal pap examination during preceding three years Last Documented On 1 1:52PM ; [facility] Recommend TSH, fasting gluco se, fasting lipid panel, CBC, BMP Last Documented On 1 1:52PM ; [facility] Recommend Calcium supplement ation and weight bearing exercise Last Documented On 1 1:52PM ; [facility] Recommended Bone Density Last Documented On 1 1:52PM ; [facility] Recommended Colonoscopy Pt r eferred to Gastroenetrologist. Pt understands that recommendation for colonoscopy is every 10 years after the age of 50 or age of 40 if first degree relative with history of colon cancer. Patient understands that failure to follow recommendation can lead to delayed diagnosis of colon cancer and patient accepts all responsibility regarding scheduling and follow up with estate planner Last Documented On 1 1:52PM ; [facility] Education and Decision Aids were provided during visit for: STD screening offered and de clined Last Documented On 7 10:28AM ; [facility] Bone Mineral Density Screeni ng guidelines reviewed Last Documented On 7 10:28AM ; [facility] Patient Education: Daily page cium and vitamin D Last Documented On 7 10:28AM ; [facility] Patient Education: weight be aring exercise Last Documented On 7 10:28AM ; [facility] Colonoscopy screening guidel truong discussed Last Documented On 7 10:28AM ; [facility] STD screening offered and de clined Last Documented On 6 9:12AM ; [facility] Bone Mineral Density Screeni ng guidelines reviewed Last Documented On 6 9:12AM ; [facility] Patient Education: Daily page cium and vitamin D Last Documented On 6 9:12AM ; [facility] Patient Education: weight be aring exercise Last Documented On 6 9:12AM ; [facility] Colonoscopy screening guidel truong discussed Last Documented On 6 9:12AM ; [facility] STD screening offered and de clined Last Documented On 5 9:15AM ; [facility] Bone Mineral Density Screeni ng guidelines reviewed Last Documented On 5 9:15AM ; [facility] Patient Education: Daily page cium and vitamin D Last Documented On 5 9:15AM ; [facility] Patient Education: weight be aring exercise Last Documented On 5 9:15AM ; [facility] Colonoscopy screening guidel truong discussed Last Documented On 5 9:15AM ; [facility] STD screening offered and de clined Last Documented On 4 2:53PM ; [facility] Bone Mineral Density Screeni ng guidelines reviewed Last Documented On 4 2:53PM ; [facility] Patient Education: Daily page cium and vitamin D Last Documented On 4 2:53PM ; [facility] Patient Education: weight be aring exercise Last Documented On 4 2:53PM ; [facility] Colonoscopy screening guidel truong discussed Last Documented On 4 2:53PM ; [facility] STD screening offered and de clined Last Documented On 3 3:38PM ; [facility] Bone Mineral Density Screeni ng guidelines reviewed Last Documented On 3 3:38PM ; [facility] Patient Education: Daily page cium and vitamin D Last Documented On 3 3:38PM ; [facility] Patient Education: weight be aring exercise Last Documented On 3 3:38PM ; [facility] Colonoscopy screening guidel truong discussed Last Documented On 3 3:38PM ; [facility] Medical Equipment - Implanted Devices Includes: Current and historical Devices No Medical Equipment Recorded Medications Includes: Current and historical Medications Current Medications (continue as prescribed) Prolia 60MG/ML Subcutaneous Solution 02/16/2017 Prov ider: Diagnosis: Last Documented On 7 10:44AM By CARIDAD PEREZ ; [facility] BusPIRone HCl 5MG Oral Tablet 02/16/2017 Provider: Diagnosis: Last Documented On 7 10:23AM By ELISHA PEREZ ; [facility] Calcium + D 500-1000-40 MG-UNT-MCG Tablet Chewable Provider: Diagnosis: Last Documented On 12/05/2015 9:10AM By REBEKAH BELLA MA ; [facility] Exemestane 25 MG Tablet 08/23/2014 Provider: Diagnosis: Last Documented On 10/23/2014 9:12AM By MEGHANN PEREZ ; [facility] Zoloft 100 MG OR TABS 09/28/2013 Provider: Diagnosis: Last Documented On 09/28/2013 2:46PM By GER COLBY ; [facility] Zoloft 50 MG OR TABS 09/28/2013 Provider: Diagnosis: Last Documented On 09/28/2013 2:47PM By GER COLBY ; [facility] Digoxin 250 MCG OR TABS 09/20/2012 Provider: Diagnosis: takes for palpitations Last Documented On 3 3:14PM By CARLY FLORES LPN ; [facility] NexIUM 40 MG OR PACK 09/20/2012 Provider: Diagnosis: Last Documented On 3 3:14PM By CARLY FLORES LPN ; [facility] Past Medications on file Nitrofurantoin Macrocrystal 100 MG Capsule 02/08/2015 - 02/15/2015 Provider: MARC TORRES RN [facility] Diagnosis: HEMATURIA NOS 1 BID USE DIRECTED W/FOOD Last Documented On 5 11:09AM By MARC MORA- ; [facility] Terconazole 0.4% VA CREA 04/06/2013 - 04/13/2013 Provi ramila: ELIAS MCRAE MD Diagnosis: i applicatorful per vagina daily for 7 days Last Documented On 04/06/2013 1:23PM By ELIAS MCRAE MD ; [facility] Ondansetron HCl 8 MG OR TABS 04/06/2013 - 09/28/2013 Shahzad brewster: Diagnosis: Last Documented On 09/28/2013 2:48PM By GER COLBY ; [facility] Promethazine HCl 25 MG OR TABS 04/06/2013 - 09/28/2013 Provider: Diagnosis: Last Documented On 09/28/2013 2:48PM By GER COLBY ; [facility] [facility] Famciclovir 250 MG OR TABS 04/06/2013 - 09/28/2013 Pro vider: Diagnosis: Last Documented On 09/28/2013 2:47PM By GER COLBY ; [facility] Diphenoxylate-Atropine 2.5-0.025 MG OR TABS 04/06/2013 - 09/28/2013 Provider: Diagnosis: Last Documented On 09/28/2013 2:47PM By GER COLBY ; [facility] dexAMETHasone 4 MG OR TABS 04/06/2013 - 09/28/2013 Pro vider: Diagnosis: Last Documented On 09/28/2013 2:47PM By GER COLBY ; [facility] Premarin 0.625 MG OR TABS 09/20/2012 - 11/15/2012 Prov ider: Diagnosis: takes one tab 3 times weekly Last Documented On 3 5:48PM By CARLY FLORES LPN ; [facility] Zoloft 100 MG OR TABS 09/20/2012 - 09/28/2013 Provider : Diagnosis: takes 150 mg daily Last Documented On 09/28/2013 2:46PM By GER COLBY ; [facility] Premarin 0.625 MG OR TABS 09/15/2011 - 09/09/2012 Prov ider: HEIDY ROBINS M.D. Diagnosis: Last Documented On 2 1:09PM By DR. HEIDY ROBINS ; [facility] MetroGel-Vaginal 0.75% VA GEL 03/02/2011 - 03/07/2011 Provider: Diagnosis: [facility]ONED TO [facility] Last Documented On 1 10:57AM By CARLY FLORES LPN ; [facility] Flagyl 500 MG OR TABS 02/23/2011 - 03/02/2011 Provider : Diagnosis: PHONED TO BILL AT [facility] Last Documented On 1 11:03AM By CARLY FLORES LPN ; [facility] Temovate 0.05% EX CREA 02/18/2011 - 09/15/2011 Provider: HEIDY ROBINS M.D. Diagnosis: CIRCUMSCRIBE SCLERODERMA apply bid x 1 month, then qh s x 1 month, then twice weekly x 1 month, dispense quantity sufficient Last Documented On 2 1:04PM By DR. HEIDY ROBINS ; [facility] Premarin 0.625 MG OR TABS 09/09/2010 - 09/15/2011 Prov ider: HEIDY ROBINS M.D. Diagnosis: Last Documented On 2 1:09PM By DR. HEIDY ROBINS ; [facility] Sertraline HCl 20 MG/ML OR CONC 08/23/2010 - 3 Provider: Diagnosis: Last Documented On 3 3:14PM By CARLY FLORES LPN ; [facility] Cefuroxime Axetil 125 MG/5ML OR SUSR 07/29/2010 - 11/2012 Provider: Diagnosis: Last Documented On 3 3:15PM By CARLY FLORES LPN ; [facility] Lidoderm 5% EX PTCH 07/08/2010 - 09/28/2013 Provider: Diagnosis: Last Documented On 09/28/2013 2:47PM By GER COLBY ; [facility] NexIUM 10 MG OR PACK 06/19/2010 - 09/20/2012 Provider: Diagnosis: Last Documented On 3 3:14PM By CARLY FLORES LPN ; [facility] Digoxin POWD 05/20/2010 - 09/20/2012 Provider: Diagnosis: Last Documented On 3 3:13PM By CARLY FLORES LPN ; [facility] Premarin 0.625 MG OR TABS 08/27/2008 - 09/09/2010 Prov ider: Diagnosis: Last Documented On 1 2:01PM By DR. HEIDY ROBINS ; [facility] Medications Administered Includes: Administered Medications in patient's chart No Administered Medications Recorded Results Includes: Results from 08/27/2023 through 08/27/2024 No Results Recorded For Specified Dates History of Present Illness History of Present Illness not supported for this document type No History of Present Illness Recorded Social History Description Last Updated In monogamous relationship 02/16/2017 Last Documented On 7 11:40AM ; [facility] Sexually active 02/16/2017 Last Documented On 7 11:40AM ; [facility] Non-smoker 02/16/2017 Last Documented On 7 11:40AM ; [facility] Smoking status : Former smoker 7 Last Documented On 7 11:40AM ; [facility] Age of 1st intercourse was was 17 2014 Last Documented On 5 12:26PM ; [facility] Cigarette smoking 1 pack(s)/day 02/09/20 15 Last Documented On 5 12:26PM ; [facility] Current smoker 02/08/2015 Last Documented On 5 12:26PM ; [facility] Marital history 02/08/2015 Last Documented On 5 12:26PM ; [facility] Not using alcohol 02/08/2015 Last Documented On 5 12:26PM ; [facility] Not using drugs 02/08/2015 Last Documented On 5 12:26PM ; [facility] Sexually active with 1 partners in the l ast year 02/08/2015 Last Documented On 5 12:26PM ; [facility] Social history changed d/c'd smoking 3 w eeks ago--has been using patches 02/08/2015 Last Documented On 5 12:26PM ; [facility] Procedures and Surgical History Surgical History Last Updated History of hysterectomy 02/16/2017 Last Documented On 7 11:40AM ; [facility] Surgical / procedural history 12/05/2015 Last Documented On 6 9:26AM ; [facility] Surgical history unchanged 02/08/2015 Last Documented On 5 12:26PM ; [facility] History of cholecystectomy 09/20/2012 Last Documented On 3 4:13PM ; [facility] History of total abdominal hysterectomy 09/20/2012 Last Documented On 3 4:13PM ; [facility] History of tubal ligation 09/20/2012 Last Documented On 3 4:13PM ; [facility] Bilateral salpingo-oophorectomy 09/09/19 11 Last Documented On 1 2:01PM ; [facility] Breast Biopsy 09/09/2010 Last Documented On 1 2:01PM ; [facility] History of appendectomy 09/09/2010 Last Documented On 1 2:01PM ; [facility] No Dilation + Curettage 09/09/2010 Last Documented On 1 2:01PM ; [facility] No Ectopic surgery 09/09/2010 Last Documented On 1 2:01PM ; [facility] No Endometrial Ablation 09/09/2010 Last Documented On 1 2:01PM ; [facility] No history of Loop electrode excision of cervix (LEEP) 09/09/2010 Last Documented On 1 2:01PM ; [facility] No history of vaginal hysterectomy 09/09 Last Documented On 1 2:01PM ; [facility] No Laparoscopic Hysterectomy 09/09/2010 Last Documented On 1 2:01PM ; [facility] No Ovarian Cystectomy 09/09/2010 Last Documented On 1 2:01PM ; [facility] No Tonsillectomy 09/09/2010 Last Documented On 1 2:01PM ; [facility] Medical History Includes: Medical History in patient's chart Description Last Updated Last mammogram date: 09/201602/16/2017 Last Documented On 7 11:40AM ; [facility] Patient recently had a dexa scan 2015 [place] SH U 02/16/2017 Last Documented On 7 11:40AM ; [facility] Result: normal WASH U 02/16/2017 Last Documented On 7 11:40AM ; [facility] A colonoscopy was performed 2012 017 Last Documented On 7 11:40AM ; [facility] Contraception: hyst 02/16/2017 Last Documented On 7 11:40AM ; [facility] 2 02/16/2017 Last Documented On 7 11:40AM ; [facility] Last pap smear date 12/05/2015 02/16/2017 Last Documented On 7 11:40AM ; [facility] LMP: 1982 02/16/2017 Last Documented On 7 11:40AM ; [facility] Para 2 02/16/2017 Last Documented On 7 11:40AM ; [facility] Result: normal 12/05/2015 Last Documented On 6 9:26AM ; [facility] History of urinary tract infection 02/08 Last Documented On 5 12:26PM ; [facility] Result: abnormal Bx i nfiltrating carcinoma ~Scheduled for next mamm in 09/28/2013 Last Documented On 4 3:08PM ; [facility] No recent change in medical history 11/2012 Last Documented On 3 4:13PM ; [facility] History of menopause 09/20/2012 Last Documented On 3 4:13PM ; [facility] Status post tubal ligation 09/20/2012 Last Documented On 3 4:13PM ; [facility] Vaginal delivery 09/09/2010 Last Documented On 1 2:01PM ; [facility] History of anxiety disorder NOS 09/09/19 11 Last Documented On 1 2:01PM ; [facility] History of chronic reflux esophagitis Last Documented On 1 2:01PM ; [facility] History of depression 09/09/2010 Last Documented On 1 2:01PM ; [facility] History of prior myocardial infarction 0 09/09/2010 Last Documented On 1 2:01PM ; [facility] 2 living children 07/17/2009 Last Documented On 9 3:39PM ; [facility] depression, ~arthritis ~stomach issues ~ ~1976- [facility] ~appendectomy ~ 07/17/2009 Last Documented On 9 3:39PM ; [facility] Status post hysterectomy 07/17/2009 Last Documented On 9 3:39PM ; [facility] Family History Includes: Family History in patient's chart Description Last Updated Family history of malignant female breas t neoplasm Patient 02/08/2015 Last Documented On 5 12:26PM ; [facility] Family history of uterine cancer Patient 02/08/2015 Last Documented On 5 12:26PM ; [facility] Family history unchanged 02/08/2015 Last Documented On 5 12:26PM ; [facility] Family history of malignant neoplasm of the ovary Mother 09/28/2013 Last Documented On 4 3:08PM ; [facility] No family history of malignant neoplasm of the large intestine 09/28/2013 Last Documented On 4 3:08PM ; [facility] No family history of diabetes mellitus 0 04/06/2013 Last Documented On 3 1:27PM ; [facility] Spouse name: RANDY 09/09/2010 Last Documented On 1 2:01PM ; [facility] No family history of hypercholesterolemi a 09/09/2010 Last Documented On 1 2:01PM ; [facility] No family history of hypertension 2010 Last Documented On 1 2:01PM ; [facility] No heart disease 09/09/2010 Last Documented On 1 2:01PM ; [facility] Family history of Cancer ovarian 009 Last Documented On 9 3:39PM ; [facility] Review of Systems Review of Systems not supported for this document type No Review of Systems Recorded Mental Status Description No anxiety Functional Status No Functional Status Recorded Physical Exam Physical Exam not supported for this document type No Physical Exam Recorded Immunizations Includes: Immunizations in patient's chart Vaccine Dose # Date Site Reaction(s) Status Source DTaP 1 Complete (Reported) Kavitha ent Last Documented On 1 1:53PM ; [facility] Influenza (Quadrivalent)36 m o.& older PF 0.5ml (SD) 1 Complete (Reported) Patient Last Documented On 1 1:53PM ; [facility] Influenza (Quadrivalent)36 m o.& older PF 0.5ml (SD) 2 Complete (Reported) Patient Last Documented On 2 1:04PM ; [facility] Td 1 Complete (Reported) Kavitha ent Last Documented On 1 1:53PM ; [facility] Allergies Includes: Active, inactive, and resolved Allergies Substance Type Reaction Onset Date Resolved Date Statu s Tetanus Toxoid Adsorbed Intolerance 07/17/2009 Active Last Documented On 7 10:23AM ; [facility] Sulfa Antibiotics Allergy 09/09/2010 A ctive Last Documented On 7 10:23AM ; [facility] Morphine Sulfate Allergy 02/16/2017 Ac tive Last Documented On 7 10:24AM ; [facility] Demerol Allergy 09/20/2012 Active Last Documented On 7 10:23AM ; [facility] Clinical Notes Includes: Signed Clinical Notes starting from 08/07/2022 No Clinical Notes Recorded
--- OUTSIDE RECORDS SUMMARY | 2024-08-27 12:48 | XMS_ITS | Encounter Summary ---
Author Organization [facility] Healthcare Address [address] [place] [address] Care Team Providers Care Eyeletter Name Role Phone Blaine, Jarod Valencia MD Primary Care Provider [phone] Jyothi Tanner MD Unavailable Donald Shirley MD, Michael Shultz Unavailable [phone] Marcio Bello MD Unavailable [phone] Catherine Joshi MD Unavailable Alea Larson MA Unavailable [phone] Encounter Details Date Type Department Care Team (Late st Contact Info) Description 06/27/2021 Telephone [facility] [address] [place] [id number] Naz Porras, RT Social History Tobacco Use Types Packs/Day Years Used Date Smoking Tobacco: Former Cigarettes Q uit: 04/18/2014 Smokeless Tobacco: Never Alcohol Use Standard Drinks/Week Comments No 0 (1 standard drink = 0.6 oz pur e alcohol) PHQ-2 Answer Date Recorded PHQ-2 Total Score (If total score is 3 or more points, staff should administer the PHQ-9) 0 05/13/2020 Comments No Sex and Gender Information Value Date Recorded Sex Assigned at Not on file Legal Sex Female 1:44 AM [employer] 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 Gender Identity Not on file Sexual Orientation Not on file documented as of this encounter Plan of Treatment Not on file documented as of this encounter Visit Diagnoses Not on filedocumented in this encounter Additional Health Concerns Infection Onset Date Last Indicated Resolved Time COVID: Suspected 10/26/2022 10/26/2022 10/26/2022 2:53 PM CDT documented as of this encounter Care Teams Eyeletter Relationship Specialty Start Date End Date Jarod Valladares MD [address] [place] [id number] PCP - General 10/16/16 Jyothi Tanner MD [address] [place] [address] Referring Physician Medical Oncology 10/07/17 Michael Bennett Jr., MD [facility] [place] [address] Surgeon Orthopedic Surgery 10/07/17 Marcio Bello MD [facility] [place] [address] Consulting Physician Gastroenterology 10/07/17 Catherine Joshi MD [facility] [place] [address] Radiology Administrator Obstetrics and Gynecology 04/21/19 Alea Larson MA [address] [place] [address] [address] [place] [address] ACO Care Municipal Maintenance Worker 05/26/24 05/29/24 documented as of this encounter
--- OUTSIDE RECORDS SUMMARY | 2024-08-27 12:48 | XMS_ITS | Continuity of Care Document ---
Author Organization [facility] Address [address] [place] [address] Phone Care Team Providers Care Facialist Name Role Phone Kalani Mars DPT Unavailable Unavailable Procedures Procedure Date THERAPEUTIC EXERCISES MANUAL THERAPY FUNC ACTIVITY PT EVALUATION THERAPEUTIC EXERCISES NEUROMUSCULAR RE-ED MANUAL THERAPY FUNC ACTIVITY Advance Directives Directive Yes / No Effective Date File Name No Information Encounters Encounter Description Practice Location Reason(s) For Visit Diagnoses Date Provider Providers Copied on Encounter [facility], [address], [place], [place], [id number], tel:[phone] Kamran No Information 6 Madisyn Uriarte. [address] [facility], [address], Formerly named [facility], [place]. tel: [phone] [facility] [address], [place], [place], [id number], tel:[phone] Kamran No Information 6 Madisyn Uriarte. [address] [facility], [facility] [address] [place], Formerly named [facility], . tel: [phone] Referring Provider: Leena Colon, [address], [place], [address]. tel:[phone] [facility], [address], [place], [place], [id number], [place] tel:[phone] Blaine Mixed incontinenceWeakness 6 Madisyn Uriarte. [address] [facility], [address], [place], [address], [place]. tel:[phone] Referring Provider: Leena Colon, [address], [place], [address]. tel:[phone] Family History Family Member Type Diagnosis Age At Onset No Information Payers Payer name Insurance type Covered constitution party ID Authorhaydee davis(s) [facility] [id number] Social History Type Description Quantity Date Captured Comments Sex Female Smoking Status No Information Chief Complaint And Reason For Visit No Information Reason For Referral Reason For Referral No Information History Of Present Illness Encounter Date Complaint History Of Prese nt Illness No Information Functional Status Date Functional Assessmen t No Information Instructions Date Instruction Additional Infor mation No Information Assessments Type Assessment Date No Information Patient Care Teams Name Effective Dates (start - stop) Status Members No Information
--- OUTSIDE RECORDS SUMMARY | 2024-08-27 12:48 | XMS_ITS | Referral Summary ---
Author Organization [facility] [employer] Address [address] [place] [address] Care Team Providers Care Dried Yeast Supervisor Name Role Phone Unknown, Provider Primary Care Provider Unavaila ble Source Comments [facility],non-owned Affiliates and Associated Physician Practices is amultiple site organization consisting of ambulatory clinics and hospital sitesin [place], [place], [place] and [place]. This disclosure is being madepursuant to the Care Everywhere program and may not contain all information available regarding this patient. Last updated 18.[facility] [employer] Allergies Active Allergy Reactions Criticality Noted Date [...] 11/19/2017 2:36 PM CDT Plan of Treatment Not on file Care Teams Dried Yeast Supervisor Relationship Specialty Start Date End Date Unknown, Provider PCP - General 11/16/17
--- OUTSIDE RECORDS SUMMARY | 2024-08-27 12:48 | XMS_ITS | Clinical Summary ---
Author Organization [facility] Care Team Providers Care Medical Artist Name Role Phone Jarod Valladares MD Primary Care Provider [phone] Allergies Active Allergy Reactions Criticality Noted Date Comments Amoxicillin-Pot Clavulanate Hives,Rash High Diltiazem Hcl Hives,Rash,Swelling High (Facial swelling) Meperidine Diarrhea,Itching,John sea,Vomiting High Levofloxacin Other (see Comments) Morphine Sulfate Nausea,Vomiting High Sulfa Antibiotics Rash Reaction: RASH, Medications Cholecalciferol (VITAMIN D3) 400 UNITS PO CAPS Take by mouth daily. Active anastrozole 1 MG PO TABS Take 1 mg by mouth daily. Active digoxin 250 MCG PO TABS Take 1.25 mg by mouth daily. Active esomeprazole (NEXIUM) 40 MG PO CAP-DEL-REL Take by mouth daily. Active sertraline 100 MG PO TABSIndications :150 mg 1 pill daily Take 150 mg by mouth every morning. Active PROAIR HFA 108 (90 Base) MCG/ACT Aerosol Solution take 1-2 Puffs by inhalation daily. 7 Active busPIRone (BUSPAR) 5 MG Tablet Take 5 mg by mouth every evening. 7 Active exemestane (AROMASIN) 25 MG Tablet Take 25 mg by mouth daily. 7 Active Azelastine HCl 0.15 % SolutionIndicat ions:ETD (Eustachian tube dysfunction), bilateral,Recur rent acute serous otitis media of right ear 2 sprays in each nostril BID 1 Inhaler 11 7 Active Additional Information Patient taking differently: 2 Puff Nasal DAILY PRN, 2 sprays in each nostril BID, Reported on 08/18/2017 oxymetazoline (AFRIN) 0.05 % SolutionIndicat ions:ETD (Eustachian tube dysfunction), bilateral,Recur rent acute serous otitis media of right ear 1 spray in each nostril, repeat in 5' x2 (total of 3 sprays) twice a day; use for 3 DAYS ONLY! 1 Bottle 7 Active Additional Information Patient not taking.Reported on 02/25/2017 Calcium-Magnesi um-Vitamin D (CALCIUM 500 PO) Take 1 Tab by mouth 3 times daily. CHEWABLE Active ibuprofen (MOTRIN) 200 MG Tablet Take 200 mg by mouth every 8 hours as needed. TAKES 800MG Active Acetaminophen (TYLENOL EXTRA STRENGTH PO) Take 2 Tabs by mouth every 6 hours as needed. Active Multiple Vitamins-Minera ls (PRESERVISION AREDS PO) Take by mouth 2 times daily. Active Active Problems Problem Noted Date Diagnosed Date Spinal stenosis of lumbar re gion without neurogenic claudication 03/02/2018 Incomplete tear of right rotator cuff 08/26/2017 Conductive hearing loss, tympanic membrane 01/21 Dysfunction of both eustachian tubes 01/21/2017 Chronic eczematous otitis externa of both ears 0 01/21/2017 Retraction of tympanic membrane of both ears 12/2016 Resolved Problems Problem Noted Date Diagnosed Date Resolved Date Recurrent acute serous otiti s media of right ear 01/21/2017 02/25/2017 Immunizations Immunization Administration Dates Next Due Covid-19, Mrna, Lnp-s, PF, 1 00 mcg/0.5 mL Dose (Moderna) 11/12/2020,10/05/2020 Family History Medical History Relation Name Comments Cancer Mother Lung Cancer Mother Relation Name Status Comments Father Mother Social History Tobacco Use Types Packs/Day Years Used Date Smoking Tobacco: Former Cigarettes 0.5 30 0 08/18/1983 - 08/18/2013 Smokeless Tobacco: Never Tobacco Cessation:Counseling Given: Yes Alcohol Use Standard Drinks/Week Comments No 0 (1 standard drink = 0.6 oz pur e alcohol) Comments Unknown Sex and Gender Information Value Date Recorded Sex Assigned at Not on file Legal Sex Female 9:08 AM CDT Gender Identity Not on file Sexual Orientation Not on file Last Filed Vital Signs Vital Sign Reading Time Taken Comments Blood Pressure 144/64 07/07/2018 12:58 PM PERSONAL BANKING REPRESENTATIVE Pulse 69 07/07/2018 12:58 PM PERSONAL BANKING REPRESENTATIVE Temperature 35.8 C (96.4 F) 07/07/2018 12:58 PM PERSONAL BANKING REPRESENTATIVE Respiratory Rate 16 07/07/2018 12:58 PM PERSONAL BANKING REPRESENTATIVE Oxygen Saturation 93% 07/07/2018 12:58 PM PERSONAL BANKING REPRESENTATIVE Inhaled Oxygen Concentration - - Weight 66.7 kg (147 lb) 07/05/2018 3:00 PM PERSONAL BANKING REPRESENTATIVE Height 167.6 cm (5' 6 ) 07/05/2018 3:00 PM PERSONAL BANKING REPRESENTATIVE Body Mass Index 23.73 07/05/2018 3:00 PM PERSONAL BANKING REPRESENTATIVE Plan of Treatment Health Maintenance Due Date Last Done Comments DEXA Bone Density 1950 Hepatitis C Virus (HCV) Screening 1950 TdaP Immunization 1950 Zoster Immunization (1 of 2) 1970 Cologuard 2001 Immunochemical Fecal Occult Blood 2001 Mammogram 2001 Pneumococcal Immunization (50+ years) (1 of 1 - PCV) 2001 Respiratory Syncytial Virus (RSV) Immunization (Adult) (1 - Risk 60-74 years 1-dose series) 2011 SARS-COV-2 Immunization (3 - Moderna risk series) 12/10/2020 11/12/2020, 10/05/2020 Influenza Immunization (#1) 03/19/202404/19, 04/24/2019, 04/27/2017, Additional history exists Colonoscopy 04/19/2028 04/19/2018 Colorectal Cancer Screening 04/19/2028 04/19/2018 Hepatitis B Immunization Aged Out No longer eligible based on patient's age to complete this topic Meningococcal Immunization (ACWY) Aged Out No longer eligible based on patient's age to complete this topic Rotavirus Immunization Aged Out No lo nger eligible based on patient's age to complete this topic Insurance MEDICARE [facility] Care Teams Medical Artist Relationship Specialty Start Date End Date Jarod Valladares MD [address] [id number] PCP - General Internal Medicine 01/21/17
--- OUTSIDE RECORDS SUMMARY | 2024-08-27 12:48 | XMS_ITS | Patient Health Summary ---
Author Organization [facility] Address [address] [place] [address] Care Team Providers Care General Manager In Training Name Role Phone Unknown, Provider Primary Care Provider Unavaila ble Note from [facility],non-owned Affiliates and Associated Physician Practices is amultiple site organization consisting of ambulatory clinics and hospital sitesin [place], [place], [place] and [place]. This disclosure is being madepursuant to the Care Everywhere program and may not contain all information available regarding this patient. Last updated 18.[facility] Allergies * Meperidine(Nausea and/or Vomiting) * Morphine(Nausea and/or Vomiting) * Sulfa Drugs(Nausea and/or Vomiting) * Amoxicillin-Pot Clavulanate(Urticaria,Rash) -High Criticality,Inactive * Diltiazem(Urticaria,Rash,Swelling) -High Criticality,Inactive * Levofloxacin(Dizziness) -Low Criticality,Inactive Medications * Be aware that medications may not be up to date on this document. Alwaysverify current medications with the patient. * albuterol HFA (PROVENTIL;VENTOLIN;PROAIR) 108 (90 BASE) MCG/ACT inhaler Inhale 2 puffs by mouth every 6 hours as needed * busPIRone (BUSPAR) 5 MG tablet Take 5 mg by mouth 3 times daily * DIGOXIN PO * esomeprazole (NEXIUM) 40 MG capsule Take 40 mg by mouth daily before breakfast * exemestane (AROMASIN) 25 MG tablet Take 25 mg by mouth once daily * sertraline (ZOLOFT) 100 MG tablet Take 100 mg by mouth once daily Active Problems Problem Noted Date Diagnosed Date [...] Osteoporosis 01/07/2017 Chronic low back pain 12/02/2013 Gastroesophageal reflux disease without esophagi tis 12/02/2013 Major depressive disorder in full remission 11/16 Menopausal syndrome 12/02/2013 Supraventricular tachycardia 12/02/2013 History of malignant neoplasm of breast 08/02/19 [...] Mass Index 24.21 11/19/2017 2:36 PM CDT Procedures * CT IAC W CONTRAST(Performed 07/02/2009) Performed for Otitis Media Results * CT IAC WITH CONTRAST (07/02/2009 11:01 AM [employer]) Anatomical Region Laterality Modality Head Computed Tomogra phy 07/02/2009 11:5 6 AM [employer] Impressions 07/02/2009 12:05 PM [employer] No abnormal fluid or soft tissue is seen in either right or left middle ear cavity. Narrative 07/02/2009 12:05 PM [employer] EXAM: CT OF THE INTERNAL AUDITORY CANALS WITH CONTRAST INDICATION: Intermittent left ear pain. Tubes put in. TECHNIQUE: Direct axial images were obtained through the temporal bones with computer generated reformatted images in the coronal plane. FINDINGS: Tympanic membrane appears retracted on the right. No abnormal fluid or soft tissue is seen in either middle ear cavity. Mastoid air cells are well developed and pneumatized bilaterally. Inner ear structures appear unremarkable. Procedure Note Karla Hauser - 07/02/2009 EXAM: CT OF THE INTERNAL AUDITORY CANALS WITH CONTRAST INDICATION: Intermittent left ear pain. Tubes put in. TECHNIQUE: Direct axial images were obtained through the temporal bones with computer generated reformatted images in the coronal plane. FINDINGS: Tympanic membrane appears retracted on the right. No abnormal fluid or soft tissue is seen in either middle ear cavity. Mastoid air cells are well developed and pneumatized bilaterally. Inner ear structures appear unremarkable. IMPRESSION No abnormal fluid or soft tissue is seen in either right or left middle ear cavity. Eliazar Escobar MD CT ORDERABLES Care Teams General Manager In Training Relationship Specialty Start Date End Date Unknown, Provider PCP - General 11/16/17
--- OUTSIDE RECORDS SUMMARY | 2024-08-27 12:48 | XMS_ITS | Clinical Summary ---
Author Organization [facility] Address [address] [place] [address] Phone Care Team Providers Care Claim Attorney Name Role Phone Unavailable Unavailable Unavailable Reason for Visit and Chief Complaint The Chief Complaint is: annual Problems Includes: Problems addressed during this encounter and other active Problems All Visits Onset Date Resolved Date Provider Condition S tatus Breast Cancer 09/28/2013 ELIAS MCRAE MD Active Last Documented On 09/28/2013 2:50PM ; [facility] Note: S/P L breast lumpectomy Cervical Cancer 09/20/2012 ELIAS Cruz MD Active Last Documented On 09/20/2012 4:12PM ; [facility] Note: At age 26, treated with hysterecto my Depressive Disorder NEC 09/20/2012 ELIAS MCRAE MD Active Last Documented On 09/20/2012 4:08PM ; [facility] Note: takes zoloft Osteoarthritis 09/20/2012 ELIAS MCRAE MD Active Last Documented On 09/20/2012 4:09PM ; [facility] Note: uses lidoderm patch PALPITATIONS 09/20/2012 ELIAS MCRAE MD Active Last Documented On 09/20/2012 4:10PM ; [facility] Note: takes digoxin REFLUX ESOPHAGITIS 09/20/2012 ELIAS HARE MD Active Last Documented On 09/20/2012 4:08PM ; [facility] Note: takes nexium Uterine Cancer 09/20/2012 ELIAS MCRAE MD Active Last Documented On 09/20/2012 4:13PM ; [facility] Note: At age 26, treated with hysterecto my Plan of Treatment She follows with breast specialist and has mammogram and appt. scheduled in November, and she also sees oncology Q3 months at [facility] for h/o breast cancer We discussed pap guidelines and she agreed not to have pap today. 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 - Last Documented On 10/23/2014 9:28AM ; [facility] Pending Tests Order Diagnosis Results Due Ordering Shahzad brewster In office procedures - *Clia Waived Labs *FIT Test (Fecal Occult Test) SCREEN MAL NEOP-RECTUM 11/06/14 ELIAS MCRAE MD Last Documented On 5 3:12PM ; [facility] Instructions to patient Instructions for patient : B reast Self Exam discussed Last Documented On 5 9:15AM ; [facility] Education and Decision Aids were provided during visit for: STD screening offered and de clined Last Documented On 5 9:15AM ; [facility] Bone Mineral Density Screeni ng guidelines reviewed Last Documented On 5 9:15AM ; [facility] Patient Education: Daily page cium and vitamin D Last Documented On 5 9:15AM ; [facility] Patient Education: weight be aring exercise Last Documented On 5 9:15AM ; [facility] Colonoscopy screening guidel truong discussed Last Documented On 5 9:15AM ; [facility] Assessments Includes: Assessments from this encounter Findings - Routine pelvic exam - Last Documented On 10/23/2014 9:28AM ; [facility] - Screening Malig. Neoplasm Rectum - Last Documented On 10/23/2014 9:28AM ; [facility] Instructions Includes: Instructions from this encounter Instructions to patient Instructions for patient : B reast Self Exam discussed Last Documented On 5 9:15AM ; [facility] Education and Decision Aids were provided during visit for: STD screening offered and de clined Last Documented On 5 9:15AM ; [facility] Bone Mineral Density Screeni ng guidelines reviewed Last Documented On 5 9:15AM ; [facility] Patient Education: Daily page cium and vitamin D Last Documented On 5 9:15AM ; [facility] Patient Education: weight be aring exercise Last Documented On 5 9:15AM ; [facility] Colonoscopy screening guidel truong discussed Last Documented On 5 9:15AM ; [facility] Medical Equipment - Implanted Devices Includes: Current Devices No Medical Equipment Recorded Medications Includes: Medications discussed during this encounter and other current Medications Current Medications (continue as prescribed) Prolia 60MG/ML Subcutaneous Solution 02/16/2017 Prov ider: Diagnosis: Last Documented On 7 10:44AM By CARIDAD HERNANDEZ Lul ; [facility] BusPIRone HCl 5MG Oral Tablet 02/16/2017 Provider: Diagnosis: Last Documented On 7 10:23AM By ELISHA DAVIDSON Lul ; [facility] Calcium + D 500-1000-40 MG-UNT-MCG Tablet Chewable Provider: Diagnosis: Last Documented On 12/05/2015 9:10AM By REBEKAH BELLA MA ; [facility] Exemestane 25 MG Tablet 08/23/2014 Provider: Diagnosis: Last Documented On 10/23/2014 9:12AM By MEGHANN MONTES Lul ; [facility] Zoloft 100 MG OR TABS 09/28/2013 Provider: Diagnosis: Last Documented On 09/28/2013 2:46PM By GER COLBY ; [facility] Zoloft 50 MG OR TABS 09/28/2013 Provider: Diagnosis: Last Documented On 09/28/2013 2:47PM By GER COLBY ; [facility] Digoxin 250 MCG OR TABS 09/20/2012 Provider: Diagnosis: takes for palpitations Last Documented On 3 3:14PM By CARLY FLORES LPN ; [facility] NexIUM 40 MG OR PACK 09/20/2012 Provider: Diagnosis: Last Documented On 3 3:14PM By CARLY FLORES LPN ; [facility] Past Medications on file Nitrofurantoin Macrocrystal 100 MG Capsule 02/08/2015 - 02/15/2015 Provider: MARC SANCHEZ Diagnosis: HEMATURIA NOS 1 BID USE DIRECTED W/FOOD Last Documented On 5 11:09AM By MARC MORA-BC ; [facility] Terconazole 0.4% VA CREA 04/06/2013 - 04/13/2013 Provi ramila: ELIAS MCRAE MD Diagnosis: i applicatorful per vagina daily for 7 days Last Documented On 04/06/2013 1:23PM By ELIAS MCRAE MD ; [facility] Premarin 0.625 MG OR TABS 09/15/2011 - 09/09/2012 Prov ider: HEIDY ROBINS M.D. Diagnosis: Last Documented On 2 1:09PM By DR. HEIDY ROBINS ; [facility] MetroGel-Vaginal 0.75% VA GEL 03/02/2011 - 03/07/2011 Provider: Diagnosis: PHONED TO [facility] Last Documented On 1 10:57AM By CARLY FLORES LPN ; [facility] Flagyl 500 MG OR TABS 02/23/2011 - 03/02/2011 Provider : Diagnosis: PHONED TO BILL AT [facility] Last Documented On 1 11:03AM By CARLY FLORES LPN ; [facility] Medications Administered Includes: Administered Medications from this encounter No Administered Medications Recorded Vital Signs Includes: Vital Signs from this encounter Vital Name 10/23/2014 09:03A Blood Pressure Sitting (mmHg) 124/82 Pulse Rate-Sitting (bpm) 64 Height (in) 65.5 Weight (lb) 144 Body Mass Index (kg/m2) 23.6 Body Surface Area (m2) 1.7 Last Documented: On 10/23/2014 9:10AM ; [facility] Results Includes: Results discussed during this encounter No Results Recorded For Specified Dates History of Present Illness Includes: History of Present Illness from this encounter LACIE GUPTA is a 64 year old female. - No unusual bleeding. - No pelvic pain - No vaginal discharge Social History Description Last Updated In monogamous relationship 10/23/2014 Last Documented On 5 9:28AM ; [facility] Smoking status : Former smoker 5 Last Documented On 5 9:28AM ; [facility] Procedures and Surgical History Includes: Procedures from this encounter Procedures Code Diagnosis Performing Provider Service L ocation Service Date Clinical summary provided to patient Last Documented On 5 9:15AM ; [facility] a fecal occult blood test was negative [id number] Last Documented On 5 9:15AM ; [facility] Surgical History Last Updated History of hysterectomy JOHN 02/16/2017 Last Documented On 5 9:03AM ; [facility] Surgical / procedural histor y R knee surgery ~R thumb surgery ~L breast lumpectomy ~hernia surgery september 2013 10/23/2014 Last Documented On 5 9:28AM ; [facility] History of cholecystectomy 09/20/2012 Last Documented On 5 9:03AM ; [facility] History of tubal ligation 09/20/2012 Last Documented On 5 9:03AM ; [facility] Bilateral salpingo-oophorectomy 09/09/19 11 Last Documented On 5 9:03AM ; [facility] Breast Biopsy 09/09/2010 Last Documented On 5 9:03AM ; [facility] History of appendectomy 09/09/2010 Last Documented On 5 9:03AM ; [facility] Medical History Includes: Medical History addressed during this encounter Description Last Updated Last mammogram date: 11/201310/23/2014 Last Documented On 5 9:28AM ; [facility] Result: normal 10/23/2014 Last Documented On 5 9:28AM ; [facility] A colonoscopy was performed 2012 015 Last Documented On 5 9:28AM ; [facility] 2 10/23/2014 Last Documented On 5 9:28AM ; [facility] Last pap smear date 09/20/2012 10/23/2014 Last Documented On 5 9:28AM ; [facility] Para 2 10/23/2014 Last Documented On 5 9:28AM ; [facility] Patient recently had a dexa scan osteopenia 10/23/2014 Last Documented On 5 9:28AM ; [facility] Result: normal 10/23/2014 Last Documented On 5 9:28AM ; 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 Neoplasm Rectum Clinical Notes Includes: Clinical Notes from this encounter No Clinical Notes Recorded
--- OUTSIDE RECORDS SUMMARY | 2024-08-27 12:48 | XMS_ITS | Referral Summary ---
Author Organization [facility] Address [address] [place] [address] Care Team Providers Care Posting Clerk Name Role Phone Jarod Valladares MD Primary Care Provider + [phone] Jyothi Tanner MD Unavailable Donald Shirley MD, Michael Shultz Unavailable [phone] Marcio Bello MD Unavailable [phone] Catherine Joshi MD Unavailable [phone] Encounters Date Type Department Care Team Description 06/19/2024 3:10 PM PURCHASING ADMINISTRATOR Lab [facility] [address] [place] [address] Preventative health care; Vitamin D deficiency 06/19/2024 2:30 PM PURCHASING ADMINISTRATOR Office Visit [facility] [address] [place] [address] Jarod Valladares MD Recurrent major depressive disorder, in full remission (CMS/HCC) (HCC) (Primary Dx); History of malignant neoplasm of breast; Menopause; Preventative health care; Vitamin D deficiency 05/30/2024 [facility] [address] [address] Alea Larson MA 05/29/2024 [facility] [address] [place] [id number] Marsha, Alea Quintana MA from Last 3 Months Allergies Active Allergy Reactions Criticality Noted Date Comments Amoxicillin Amoxicillin-Pot Clavulanate Hives,Rash High Diltiazem Hcl Hives,Rash,Swelling High (Facial swelling) (Facial swelling) Levofloxacin Other (See comments) Low Meperidine Nausea only,Vomiting,Diarrh ea,Itching,Nausea Only High 09/20/2012 Reaction: NAUSEA, VOMITTING, , , Morphine Nausea only,Vomiting Reaction: NAUSEA, VOMITTING, , Morphine Sulfate Diarrhea,Nausea Only,Vomiting High Sulfa (Sulfonamide Antibiotics) Rash Reaction: RASH, Sulfasalazine Rash Medium Reaction: RASH, Medications calcium crb,cit-D3-min3 4-juma 300-200-13.5 mg-unit-mg tablet Take by mouth Active cholecalciferol (VITAMIN D-3) 5,000 unit capsule Take 1 capsule (5,000 Units total) by mouth daily Active multivitamin capsuleIndicati ons:eye vitamin Take 1 capsule by mouth daily Active senna-docusate (PERICOLACE) 8.6-50 mgIndications:c onstipation Take 2 tablets by mouth 2 (two) times a day 30 tablet 01/26/2020 Active valACYclovir (VALTREX) 500 mg tablet Take 1 tablet (500 mg total) by mouth daily 90 tablet 3 11/09/2023 Active escitalopram (LEXAPRO) 20 mg tablet Take 1 tablet (20 mg total) by mouth daily 90 tablet 1 12/17/2023 Active albuterol HFA (PROVENTIL HFA,VENTOLIN HFA,PROAIR HFA) 90 mcg/actuation inhaler Inhale 2 puffs q 8hrs prn 1 each 11 12/17/2023 Active busPIRone (BUSPAR) 7.5 mg tabletIndicatio ns:Generalized Anxiety Disorder TAKE 1 TABLET (7.5 MG TOTAL) BY MOUTH 2 (TWO) TIMES A DAY WITH LUNCH AND BEDTIME 180 tablet 06/08/2024 Active Active Problems Problem Noted Date Diagnosed Date Acute non-recurrent maxillary sinusitis 10/27/19 Assessment & Plan (10/26/2022 3:05 PM CDT): Symptoms for 11 days. Tested negative for COVID and FLU in office today. Maxillary tenderness and significant clear PND on exam. Will rx Doxycycline as directed. Promethazine DM as needed for night time cough. Discussed antihistamine use (zyrtec/june) to help dry up mucous. Tylenol/Ibuprofen as needed for pain. Increase fluids (water) Cool mist humidifier at night Use sinus rinses to help flush bacteria and help with congestion. Encouraged honey, marshmallows, or chloraseptic to help coat throat. Call with any worsening or persistent symptoms. Type I or II open fracture of right ankle 2019 Overview (01/25/2020): Added automatically from request for surgery [id number] Encounter for Medicare annual wellness exam 03/20 Assessment & Plan (12/18/2023 11:13 AM CDT): IMMUNIZATIONS WERE REVIEWED JOSETTE : STABLE CHRONIC WELL CONTROLLED ON BUSPAR AND LEXAPRO H/O BREAST CANCER : IN REMISSION LAST MAMMOGRAM IS UPTODATE H/O SVT : STABLE F/U CARDIOLOGY Assessment & Plan (2018 1:24 PM CDT): Immunizations were discussed / meds were reviewed / blood work was disucssed / meds seem to be working well No changes in meds werre made today Spinal stenosis of lumbar re gion without neurogenic claudication 03/02/2018 Bilateral chronic otitis media 11/19/2017 Conductive hearing loss, tympanic membrane 01/21 Dysfunction of both eustachian tubes 01/21/2017 Retraction of tympanic membrane of both ears 12/2016 Osteoporosis 01/07/2017 Major depressive disorder in full remission 11/16 Overview (10/21/2016): Depression Assessment & Plan (06/19/2024 2:50 PM PURCHASING ADMINISTRATOR): Chronic and stable On lexapro And buspar Chronic bilateral low back pain without sciatica 12/02/2013 Overview (10/21/2016): Chronic low back pain Gastroesophageal reflux disease without esophagi tis 12/02/2013 Overview (10/23/2016): GERD (gastroesophageal reflux disease) Supraventricular tachycardia 12/02/2013 Overview (10/23/2016): SVT (supraventricular tachycardia) Menopausal syndrome 12/02/2013 Overview (10/24/2016): Menopausal syndrome History of malignant neoplasm of breast 08/02/19 14 Assessment & Plan (06/19/2024 2:51 PM PURCHASING ADMINISTRATOR): Chronic and stable Last maMMOGRAM NL IN 09/11 BMD ARRANGED 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 11/17/2012 Immunizations Name Administration Dates Next Due Influenza, Quad, Adjuvantate d, Intramuscular 04/23/2023 Influenza, Quadrivalent, Hig h Dose, Preservative Free, Intrr 05/05/2022 Influenza, Quadrivalent, Spl it, Preservative Free, Intramuscular 05/13/2020 Influenza, Split 05/09/2013 Influenza, Trivalent, High D ose, Split, Preservative Free, Intramuscular 04/22/2024,04/24/2019,2018,04/27,05/28/2016 Influenza, Trivalent, IM (MDV) 05/02/2015,2013,04/28/2012 Pfizer SARS-CoV-2 Monovalent Vaccination (12+ Yrs) PURPLE 08/18/2021 Pneumococcal Conjugate PCV 13 10/01/2016 Tdap 01/25/2020 ZOSTER LIVE 05/28/2011 ZOSTER Recombinant 07/06/2022,03/18/2022 Social History Tobacco Use Types Packs/Day Years Used Date Smoking Tobacco: Former Cigarettes Q uit: 04/18/2014 Smokeless Tobacco: Never Tobacco Cessation:Counseling Given: Not Answered Alcohol Use Standard Drinks/Week Comments No 0 (1 standard drink = 0.6 oz pur e alcohol) PHQ-2 Answer Date Recorded PHQ-2 Total Score (If total score is 3 or more points, staff should administer the PHQ-9) 0 12/17/2023 Personal Safety Answer Date Recorded Have you ever been in or are you currently in a harmful physical or emotional relationship or is someone making you feel afraid or unsafe? Denies 05/25/2024 Comments No Sex and Gender Information Value Date Recorded Sex Assigned at Not on file Legal Sex Female 1:44 AM PURCHASING ADMINISTRATOR Gender Identity Not on file Sexual Orientation Not on file Occupation Industry Job Start Date Job End Date Retired Not on file Not on file Not on file Last Filed Vital Signs Vital Sign Reading Time Taken Comments Blood Pressure 116/64 06/19/2024 2:40 PM PURCHASING ADMINISTRATOR Pulse 78 06/19/2024 2:40 PM PURCHASING ADMINISTRATOR Temperature 36.2 C (97.1 F) 06/19/2024 2:40 PM PURCHASING ADMINISTRATOR Respiratory Rate 16 06/19/2024 2:40 PM PURCHASING ADMINISTRATOR Oxygen Saturation 98% 06/19/2024 2:40 PM PURCHASING ADMINISTRATOR Inhaled Oxygen Concentration - - Weight 73.6 kg (162 lb 3.2 oz) 06/19/2024 2:40 P M PURCHASING ADMINISTRATOR Height 167.6 cm (5' 6 ) 06/19/2024 2:40 PM PURCHASING ADMINISTRATOR Body Mass Index 26.18 06/19/2024 2:40 PM PURCHASING ADMINISTRATOR Plan of Treatment Not on file Medical Devices Implanted Type Area Outpatient Receptionist Device Identifier Shelf Expiration Date Model / Serial / Lot [employer]o [id number] Evos [id number] 8x1.8mm 5 Hole Low Profile Variable Angle Lock - [id number] Implanted:Qty: 1 on 01/25/2020 by Zeina Bryant MD at [facility] Right: Ankle [employer] tho [id number] / / [employer]o [id number] Evos 3.5mm 12mm Self Tap Cortex Screw Bone Sterile - [id number] Implanted:Qty: 2 on 01/25/2020 by Zeina Bryant MD at [facility] Right: Ankle [employer] tho [id number] / / [employer]o [id number] Evos 3.5mm 14mm Self Tap Cortex Screw Bone Sterile - [id number] Implanted:Qty: 1 on 01/25/2020 by Zeina Bryant MD at [facility] Right: Ankle [employer] tho [id number] / / [employer]tho [id number] Evos 3.5mm 85mm Self Tap Cortex Screw Bone Sterile - [id number] Implanted:Qty: 1 on 01/25/2020 by Zeina Bryant MD at [facility] Right: Ankle [employer] tho [id number] / / [employer]o [id number] Evos 3.5mm 70mm Self Tap Cortex Screw Bone Sterile - [id number] Implanted:Qty: 1 on 01/25/2020 by Zeina Bryant MD at [facility] Right: Ankle [employer] tho [id number] / / [employer]o [id number] 2.7mm 4.3mm 16mm Self Tap Lock T8 2mm Screw Bone Evos - [id number] Implanted:Qty: 3 on 01/25/2020 by Zeina Bryant MD at [facility] Right: Ankle [employer] tho [id number] / / [employer]o [id number] 2.7mm 4.3mm 14mm Self Tap Lock Small Bone Long Bone T8 2mm Screw - [id number] Implanted:Qty: 1 on 01/25/2020 by Zeina Bryant MD at [facility] Right: Ankle [employer] tho [id number] / / Synthes 207.736 4mm 5mm 36mm Cannulated Self Tap Self Drill Small Hexagonal - [id number] Implanted:Qty: 1 on 01/25/2020 by Zeina Bryant MD at [facility] Right: Ankle Synthes I 207.736 / / Explanted Type Area Outpatient Receptionist Device Identifier Shelf Expiration Date Model / Serial / Lot [employer]o [id number] 2.7mm 4.5mm 30mm Self Retaining Screwdriver Self Tap Flat Head - [id number] Explanted:Qty: 1 on 01/25/2020 at [facility] Right: Ankle [employer] tho [id number] / / Procedures Procedure Name Priority Date/Time Associated Diagnosis Comments EGFR Routine 06/19/2024 3:02 PM PURCHASING ADMINISTRATOR Preventative health care DIFFERENTIAL AUTO Routine 06/19/2024 3:0 2 PM PURCHASING ADMINISTRATOR Preventative health care CBC WITH AUTO DIFFERENTIAL Routine 06/19/2024 3:02 PM PURCHASING ADMINISTRATOR Preventative health care COMPREHENSIVE METABOLIC PANEL Routine 06/19/2024 3:02 PM PURCHASING ADMINISTRATOR Preventative health care LIPID PANEL Routine 06/19/2024 3:02 PM PURCHASING ADMINISTRATOR Preventative health care VITAMIN D 25 HYDROXY Routine 06/19/2024 3:02 PM PURCHASING ADMINISTRATOR Preventative health care Vitamin D deficiency SCREENING MAMMOGRAM BILATERAL W REDD Schedule Routine, Read Routine (OP Routine) 09/09/2023 1:18 PM PURCHASING ADMINISTRATOR Screening mammogram, encounter for DEXA AXIAL SKELETON BONE DENSITY 1 OR MORE SITES Schedule Routine, Read Routine (OP Routine) 06/30/2021 10:01 AM PURCHASING ADMINISTRATOR Encounter for screening for osteoporosis HEPATITIS PANEL, ACUTE Routine 05/18/2019 10:57 AM CDT Elevated LFTs COLONOSCOPY 04/19/2018 8:50 AM CDT from Last 3 Months or Most Recently Relevant to Health Maintenance Results * eGFR (06/19/2024 3:02 PM PURCHASING ADMINISTRATOR) eGFR >90 >=60 mL/min/1. 73 m2 Comment: Interpretive Data Reference Interval Normal >/= 90 mL/min/1.73m2 Mildly decreased* 60 - 89 mL/min/1.73m2 Mildly to moderately decreased 45 - 59 mL/min/1.73m2 Moderately to severely decreased 30 - 44 mL/min/1.73m2 Severely decreased 15 - 29 mL/min/1.73m2 Kidney Failure < 15 mL/min/1.73m2 *Relative to young adult level Estimated glomerular filtration rate is determined by the 2020 CKD-EPI equation recommended by the National Kidney Foundation (A Unifying Approach to GFR Estimation: Recommendations of the NKF-ASK Task Force on Reassessing the Inclusion of Race in Diagnosing Kidney Disease, JASN 202). The CKD-EPI equation should not be used for patients with unstable renal function and has not been validated in children and those over 70. Current interpretive data was last reviewed 2021. Testing performed by: [address] [address] Blood 06/19/2024 3:02 PM PURCHASING ADMINISTRATOR 06/19/2024 9:36 PM PURCHASING ADMINISTRATOR Jarod Valladares MD LAB BLOOD ORDERABLES Final Result [facility] [address] Department [place] [address] * Differential, auto (06/19/2024 3:02 PM PURCHASING ADMINISTRATOR) Neutrophil abs 6.4 1.5 - 6.5 K/cumm Comment:Testing performed by : [address] [address] Imm gran abs 0.0 0.0 - 0.1 K/cumm [facility] Comment:Testing performed by : [address] [address] Lymphocyte abs 2.9 0.8 - 3.3 K/cumm [facility] Comment:Testing performed by : [address] [address] Monocyte abs 0.4 0.2 - 0.8 K/cumm [facility] Comment:Testing performed by : [address] [address] Eosinophil abs 0.2 0.0 - 0.5 K/cumm [facility] Comment:Testing performed by : [address] [address] Basophil abs 0.1 0.0 - 0.1 K/cumm [facility] Comment:Testing performed by : [address] [address] Neutrophil pct 64.0 % [facility] Comment: Interpretive Data Percent cell count reference ranges are not reported, since discordance with absolute values may lead to misinterpretation of CBC data. Current Interpretive Data was last revised on 2017. Testing performed by: [facility], [address] [place] [address]., [address] Imm gran pct 0.3 % [facility] Comment: Interpretive Data Percent cell count reference ranges are not reported, since discordance with absolute values may lead to misinterpretation of CBC data. Current Interpretive Data was last revised on 2017. Testing performed by: [address] [address] Lymphocyte pct 28.7 % [facility] Comment: Interpretive Data Percent cell count reference ranges are not reported, since discordance with absolute values may lead to misinterpretation of CBC data. Current Interpretive Data was last revised on 2017. Testing performed by: [address] [address] Monocyte pct 4.2 % [facility] Comment: Interpretive Data Percent cell count reference ranges are not reported, since discordance with absolute values may lead to misinterpretation of CBC data. Current Interpretive Data was last revised on 2017. Testing performed by: [address] [address] Eosinophil pct 2.1 % [facility] Comment: Interpretive Data Percent cell count reference ranges are not reported, since discordance with absolute values may lead to misinterpretation of CBC data. Current Interpretive Data was last revised on 2017. Testing performed by: [address] [address] Basophil pct 0.7 % [facility] Comment: Interpretive Data Percent cell count reference ranges are not reported, since discordance with absolute values may lead to misinterpretation of CBC data. Current Interpretive Data was last revised on 2017. Testing performed by: [address] [address] Blood 06/19/2024 3:02 PM PURCHASING ADMINISTRATOR 06/19/2024 9:19 PM PURCHASING ADMINISTRATOR Jarod Valladares MD LAB BLOOD ORDERABLES Final Result [address] Department [place] [address] * (ABNORMAL) CBC with auto differential (06/19/2024 3:02 PM PURCHASING ADMINISTRATOR) WBC 10.0(H) 3.8 - 9.9 K/cumm Comment:Testing performed by : [address], [address] Hgb 12.4 11.9 - 15.5 g/dL [facility] Comment:Testing performed by : [address], [address] Hct 40.2 35.6 - 45.5 % [facility] Comment:Testing performed by : [address], [address] Plt 508(H) 150 - 400 K/cumm [facility] Comment:Testing performed by : [address], [address] MPV 9.9 9.1 - 12.3 fL [facility] Comment:Testing performed by : [address], [address] RBC 3.79(L) 3.90 - 5.20 M/cumm [facility] Comment:Testing performed by : [address], [address] MCV 106.1(H) 81.3 - 96.4 fL [facility] Comment:Testing performed by : [address], [address] MCH 32.7 27.1 - 33.3 pg [facility] Comment:Testing performed by : [address], [address] MCHC 30.8(L) 32.3 - 35.7 g/dL [facility] Comment:Testing performed by : [address], [address] RDW CV 15.2(H) 11.1 - 14.9 % [facility] Comment:Testing performed by : [address], [address] RDW SD 59.4(H) 35.7 - 48.1 fL [facility] Comment:Testing performed by : [facility], [address] [place] [address]., [address] NRBC abs 0.03(H) 0.00 - 0.01 K/cumm [facility] Comment:Testing performed by : [facility], [address] [place] [address]., [address] Blood 06/19/2024 3:02 PM PURCHASING ADMINISTRATOR 06/19/2024 9:19 PM PURCHASING ADMINISTRATOR Jarod Valladares MD LAB BLOOD ORDERABLES Final Result Performing Organization Address City/[facility]/ZIP Co de Phone Number [facility] [facility] [employer] [place] [address] * (ABNORMAL) Vitamin D 25 hydroxy (06/19/2024 3:02 PM PURCHASING ADMINISTRATOR) Vitamin D 25-OH 21(L) 30 - 80 ng/mL Comment:Testing performed by : [facility], [address] [place] [address]., [address] Blood 06/19/2024 3:02 PM PURCHASING ADMINISTRATOR 06/19/2024 9:19 PM PURCHASING ADMINISTRATOR Jarod Valladares MD LAB BLOOD ORDERABLES Final Result Performing Organization Address City/[facility] Co de Phone Number [place] [phone] [facility] [place] [address] * Lipid panel (06/19/2024 3:02 PM PURCHASING ADMINISTRATOR) Cholesterol 198 30 - 199 mg/dL Comment: Interpretive Data Ages < or = 19 years Acceptable: <170 mg/dL Borderline high: 170-199 mg/dL High: >or= 200 mg/dL Ages > or = 20 years Desirable: <200 mg/dL Borderline high: 200-239 mg/dL High: >or= 240 mg/dL Literature References: 1. Expert Panel on Integrated Guidelines for Cardiovascular Health and Risk Reduction in Children and Adolescents. Pediatrics 2011;128:S213 2. NCEP Expert Panel. Circulation 2004;110:227 Current Interpretive Data was last revised on 2018. Testing performed by: [facility], [address] [place] [address]., [address] Triglycerides 93 <=149 mg/dL [facility] Comment: Interpretive Data Ages < or = 9 years Acceptable: <75 mg/dL Borderline high: 75-99 mg/dL High: >or= 100 mg/dL Ages 10 to 20 years Acceptable: <90 mg/dL Borderline high: 90-129 mg/dL High: >or= 130 mg/dL Ages > or = 20 years Desirable: <150 mg/dL Borderline high: 150-199 mg/dL High: 200-499 mg/dL Very high: >or= 499 mg/dL Literature References: 1. Expert Panel on Integrated Guidelines for Cardiovascular Health and Risk Reduction in Children and Adolescents. Pediatrics 2011;128:S213 2. NCEP Expert Panel. Circulation 2004;110:227 Current Interpretive Data was last revised on 2018. Testing performed by: [address] [address] HDL 69 >=40 mg/dL [facility] Comment: Interpretive Data Ages < or = 19 years Acceptable: >45 mg/dL Borderline low: 40-45 mg/dL Low: <40 mg/dL Ages > or = 20 years Desirable: >or= 60 mg/dL Low: <40 mg/dL Literature References: 1. Expert Panel on Integrated Guidelines for Cardiovascular Health and Risk Reduction in Children and Adolescents. Pediatrics 2011;128:S213 2. NCEP Expert Panel. Circulation 2004;110:227 Current Interpretive Data was last revised on 2018. Testing performed by: [facility], [address] [place] [address]., [address] LDL, calculated 112 <=129 mg/dL [facility] Comment: Interpretive Data Ages < or = 19 years Acceptable: <110 mg/dL Borderline high: 110-129 mg/dL High: >or= 130 mg/dL Ages > or = 20 years Optimal: <100 mg/dL Near optimal: 100-129 mg/dL Borderline high: 130-159 mg/dL High: >160 mg/dL Calculated using the Barbosa LDL-C estimating equation. This equation was implemented on 2024. Prior to this date LDL-C was estimated using the Friedewald equation. Literature References: 1. Expert Panel on Integrated Guidelines for Cardiovascular Health and Risk Reduction in Children and Adolescents. Pediatrics 2011;128:S213 2. NCEP Expert Panel. Circulation 2004;110:227 3. Familia M et al. LEA Cardiol. 2020 November 16;5(5):540-548. doi: 10.1001/jamacardio.2020.0013 Current Interpretive Data was last revised on 2024. Testing performed by: [address] [address] Non-HDL Cholesterol 129 mg/dL [facility] Comment: Interpretive Data Ages < or = 19 years Acceptable: <120 mg/dL Borderline high: 120-144 mg/dL High: >145 mg/dL Ages > or = 20 years When triglycerides are >200 mg/dL, Non-HDL cholesterol is a secondary target of therapy with treatment goals that are 30 mg/dL greater than the LDL cholesterol target. Literature References: 1. Expert Panel on Integrated Guidelines for Cardiovascular Health and Risk Reduction in Children and Adolescents. Pediatrics 2011;128:S213 2. NCEP Expert Panel. Circulation 2004;110:227 Current Interpretive Data was last revised on 2018. Testing performed by: [address] [address] Chol/HDL ratio 3 [facility] Comment:Testing performed by : [address] [address] Blood 06/19/2024 3:02 PM PURCHASING ADMINISTRATOR 06/19/2024 9:19 PM PURCHASING ADMINISTRATOR Jarod Valladares MD LAB BLOOD ORDERABLES Final Result [facility] [address] Department [place] [address] * Comprehensive metabolic panel (06/19/2024 3:02 PM PURCHASING ADMINISTRATOR) [facility] Signature Sodium 141 135 - 145 mmol/L Comment:Testing performed by : [address] [address] Potassium, pl 4.4 3.3 - 4.9 mmol/L [facility] Comment:Testing performed by : [address] [place]., [address] Chloride 103 97 - 110 mmol/L [facility] Comment:Testing performed by : [address] [address] CO2 27 22 - 32 mmol/L [facility] Comment:Testing performed by : [address], [address] Anion gap 11 2 - 15 mmol/L [facility] Comment:Testing performed by : [address], [address] BUN 13 6 - 25 mg/dL [facility] Comment:Testing performed by : [address], [address] Creatinine 0.64 0.60 - 1.10 mg/dL [facility] Comment:Testing performed by : [address], [address] Glucose 92 70 - 199 mg/dL [facility] Comment: Interpretive Data Fasting glucose >/= 126 mg/dl is diagnostic for diabetes. Fasting is defined as no caloric intake for at least 8 hours. Fasting glucose between 100 mg/dl to 125 mg/dl is diagnostic of prediabetes. In a patient with classic symptoms of hyperglycemia or hyperglycemic crisis, a random glucose >/= 200 mg/dl is diagnostic for diabetes. In the absence of unequivocal hyperglycemia, results should be confirmed by repeat testing. The classification and Diagnosis of Diabetes Diabetes Care 2021; 46: S19-S40. Current interpretive data was last revised 2022. Testing performed by: [address] [address] Calcium 10.1 8.5 - 10.3 mg/dL [facility] Comment:Testing performed by : [address], [address] Bilirubin, total 0.3 0.1 - 1.2 mg/dL [facility] Comment:Testing performed by : [address], [address] Protein, pl 7.1 6.5 - 8.5 g/dL [facility] Comment:Testing performed by : [address], [address] Albumin 4.5 3.5 - 5.0 g/dL [facility] Comment:Testing performed by : [facility], [address] [place] [address]., [address] Alk phos 73 40 - 130 Units/L [facility] Comment:Testing performed by : [address] [address] ALT 12 7 - 45 Units/L [facility] Comment:Testing performed by : [facility], [address] [place] [address], [address] AST 27 10 - 45 Units/L [facility] Comment:Testing performed by : [address] [address] Blood 06/19/2024 3:02 PM PURCHASING ADMINISTRATOR 06/19/2024 9:19 PM PURCHASING ADMINISTRATOR us Jarod Valladares MD LAB BLOOD ORDERABLES Final Result Performing Organization Address City/State/[facility] Co de Phone Number [address] Department [place] [address] * Screening Mammogram Bilateral W Redd (09/09/2023 1:18 PM PURCHASING ADMINISTRATOR) Anatomical Region Laterality Modality Breast Bilateral Mammography 09/09/2023 1:40 PM PURCHASING ADMINISTRATOR Impressions 09/09/2023 1:40 PM PURCHASING ADMINISTRATOR There is no mammographic evidence of malignancy. A 1 year screening mammogram is recommended. BI-RADS: 2 - Benign. The patient has been or will be contacted. The patient will be entered into a reminder system with a target due date of 1 year for her next mammogram. Electronically signed by: Darrian De Jesus M.D. Narrative 09/09/2023 1:40 PM PURCHASING ADMINISTRATOR EXAMINATION: SCREENING MAMMOGRAM BILATERAL W REDD ORDERING HEALTHCARE PROVIDER: SELF SCREENING MAMMOGRAM HISTORY: Routine screening mammography. Personal history of left breast cancer status post breast conserving therapy in 2012. COMPARISON: 08/05/2022, 06/30/2021, 06/29/2020, 11/14/2018, 09/27/2017 TECHNIQUE: CC and MLO views of the bilateral breasts were obtained with digital technique using breast tomosynthesis with C view. Computer aided detection was utilized. FINDINGS: DENSITY: The tissue of the bilateral breasts is heterogeneously dense, which may obscure small masses. BREASTS: There are stable changes of breast conserving therapy in the left breast, which include postoperative findings in both the upper outer and upper inner quadrants. Benign morphology calcifications in both breasts have not suspiciously changed. There is no new suspicious finding in either breast on mammogram. us Self Screening Mammogram IMG MAMMO PROCEDURES Fi nal Result * Dexa Axial Skeleton Bone Density 1 or 2 Site (06/30/2021 10:01 AM PURCHASING ADMINISTRATOR) Anatomical Region Laterality Modality Body N/A Other 06/30/2021 10:1 9 AM PURCHASING ADMINISTRATOR Narrative 06/30/2021 10:20 AM PURCHASING ADMINISTRATOR EXAM DESCRIPTION: DEXA AXIAL SKELETON BONE DENSITY 1 OR MORE SITES REASON FOR STUDY: Post-menopausal female, screening for osteoporosis. 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 FINDINGS: AP LUMBAR SPINE L1-L4: Total BMD is 0.911 g/cm2 T-score is -1.2 LEFT HIP: Total BMD is 0.900 g/cm2 T-score is -0.3 Femoral neck BMD is 0.721 g/cm2 T-score is -1.2 IMPRESSION: 1. Low bone mass by WHO criteria. 2. The WHO fracture risk assessment tool (FRAX) indicates that the 10 year risk for a major osteoporotic fracture is 9.1% and the 10 year risk for a hip fracture is 1.0%. The FRAX tool has not been validated in patients currently or previously treated with pharmacotherapy for osteoporosis. In such patients, clinical judgement must be exercised in interpreting FRAX scores as the fracture risk may be overestimated. REFERENCE: Bone mineral density: Normal (T-score above or = -1.0) Low bone mass (T-score between -1.0 and -2.5) replaces the previously used term osteopenia Osteoporosis (T-score = or below -2.5) Medical evaluation for secondary causes of low bone mineral density may be appropriate. FRAX is a World Health Organization validated fracture risk assessment tool that calculates a person's 10 year probability of a major osteoporosis related fracture and hip fracture. According to the National Osteoporosis Foundation guidelines, postmenopausal women and men age 50 or older with low bone mass and a 10 year probability of a major osteoporosis related fracture = or greater than 20% or a 10 year probability of a hip fracture = or greater than 3% should be considered for treatment. For further information, including treatment recommendations, please refer to the 2013 ISCD Official Positions (http://www.iscd.org) and the NOF's Clinician's Guide to Prevention and Treatment of Osteoporosis (http://www.nof.org/professionals/clinical-guidelines) THIS IS AN ELECTRONICALLY VERIFIED FINAL REPORT 06/30/2021 10:20 AM - Electronically signed by Braxton Candelario M.D. AB: Report ID: [id number] Reading Location: [id number] Procedure Note Braxton Candelario MD - 06/30/2021 EXAM DESCRIPTION: DEXA AXIAL SKELETON BONE DENSITY 1 OR MORE SITES REASON FOR STUDY: Post-menopausal female, screening for osteoporosis. 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 FINDINGS: AP LUMBAR SPINE L1-L4: Total BMD is 0.911 g/cm2 T-score is -1.2 LEFT HIP: Total BMD is 0.900 g/cm2 T-score is -0.3 Femoral neck BMD is 0.721 g/cm2 T-score is -1.2 IMPRESSION: 1. Low bone mass by WHO criteria. 2. The WHO fracture risk assessment tool (FRAX) indicates that the 10 year risk for a major osteoporotic fracture is 9.1% and the 10 year risk for ahip fracture is 1.0%. The FRAX tool has not been validated in patients currently or previously treated with pharmacotherapy for osteoporosis. In such patients, clinical judgement must be exercised in interpreting FRAX scores as the fracturerisk may be overestimated. REFERENCE: Bone mineral density: Normal (T-score above or = -1.0) Low bone mass (T-score between -1.0 and -2.5) replaces thepreviously used term osteopenia Osteoporosis (T-score = or below -2.5) Medical evaluation for secondary causes of low bone mineral density may be appropriate. FRAX is a World Health Organization validated fracture risk assessmenttool that calculates a person's 10 year probability of a major osteoporosisrelated fracture and hip fracture. According to the National OsteoporosisFoundation guidelines, postmenopausal women and men age 50 or older with low bonemass and a 10 year probability of a major osteoporosis related fracture = or greater than 20% or a 10 year probability of a hip fracture = or greaterthan 3% should be considered for treatment. For further information, including treatment recommendations, please referto the 2013 ISCD Official Positions (http://www.iscd.org) and the NOF's Clinician's Guide to Prevention and Treatment of Osteoporosis (http://www.nof.org/professionals/clinical-guidelines) THIS IS AN ELECTRONICALLY VERIFIED FINAL REPORT 06/30/2021 10:20 AM - Electronically signed by Braxton Candelario M.D. AB: AB Report ID: [id number] Reading Location: [place] [address] us Catherine Joshi MD IMG DXA PROCEDURES Final Result * Hepatitis panel, acute (05/18/2019 10:57 AM CDT) Hep A IgM Negative Negative [facility] Hep B core IgM Negative Negative [facility] Hep C Ab Negative Negative [facility] HepBsAg Nonreactive Nonreactive [facility] Blood specimen (specimen) 05/18/2019 10:57 AM CDT 05/18/2019 5:23 PM CDT us Jarod Valladares MD LAB MICROBIOLOGY - GENERAL ORDERABLES Final Result [facility] [id number] [address] Department [place] [address] * COLONOSCOPY (04/19/2018 8:50 AM CDT) Anatomical Region Laterality Modality Other Narrative Procedure Note Marcio Bello MD - 04/19/2018 8:50 AM CDT [facility] Patient Name: Mariana Bee Procedure Date: 04/19/2018 8:50 AM Date of : 1950 Admit Type: Outpatient Age: 68 Gender: Female Attending MD: Marcio Bello MD Room: [facility] Note Status: Finalized Patient Profile: 68 WF, h/o polyps, no family h/o colon cancer. Procedure: Colonoscopy Indications: High risk colon cancer surveillance: Personalhistory of colonic polyps, Last colonoscopy: July 2012 Referring MD: Jarod Valladares MD Providers: Marcio Bello MD Impression: - The entire examined colon is normal. - Internal hemorrhoids. - No specimens collected. Recommendation: - Repeat colonoscopy in 5-10 years forsurveillance. - Continue present medications. Medicines: Monitored Anesthesia Care Complications: No immediate complications. Estimated Blood Loss: Estimated blood loss: none. Procedure: Pre-Anesthesia Assessment: - Prior to the procedure, a History and Physical was performed, and patient medications and allergieswere reviewed. The patient's tolerance of previous anesthesia was also reviewed. The risks and benefitsof the procedure and the sedation options and riskswere discussed with the patient. All questions were answered, and informed consent was obtained. Prior Anticoagulants: The patient has taken no previous anticoagulant or antiplatelet agents. ASA Grade Assessment: II - A patient with mild systemicdisease. After reviewing the risks and benefits, the patientwas deemed in satisfactory condition to undergo the procedure. The benefits, risks and alternatives of theprocedure and sedation were discussed and informed consent was obtained. All questions were answered. Please referto the signed informed consent document in the medical record. The scope was passed under direct vision.The Pediatric Colonoscope PCF-H190L [id number] was introduced through the anus and advanced to the the cecum, identified by appendiceal orifice andileocecal valve. The colonoscopy was performed without difficulty. The patient tolerated the procedurewell. The quality of the bowel preparation was good. Findings: The perianal and digital rectal examinations were normal. The cecum appeared normal. The colon (entire examined portion) appeared normal. No polyps and no mass lesions. Internal hemorrhoids were found during retroflexion. The hemorrhoids were small. Electronically signed by Marcio Bello M.D. Marcio Bello MD 04/19/2018 9:58:06 AM Number of Addenda: 0 Note Initiated On: 04/19/2018 8:50 AM Procedure Code(s): --- Professional --- G0105, Colorectal cancer screening; colonoscopy on individual at high risk Diagnosis Code(s): --- Professional --- Z86.010, Personal history of colonic polyps K64.8, Other hemorrhoids CPT copyright 2017 [employer]. All rights reserved. The codes documented in this report are preliminary and upon full fashioned garment knitter reviewmay be revised to meet current compliance requirements. Recognized by the [employer] Society for Gastrointestinal [employer] for promoting quality in endoscopy Marcio Bello MD ENDOSCOPY PROCEDURES Final Result from Last 3 Months or Most Recently Relevant to Health Maintenance Insurance [facility] MEDICARE [facility] MEDICARE [facility] [place] [address] MEDICARE [facility] Advance Directives For more information, please contact: [phone] * Full Code (Latest Code Status on File) Date Activated Date Inactivated Comments 01/25/2020 5:43 AM 01/26/2020 10:35 PM * Full Code Date Activated Date Inactivated Comments 04/19/2018 8:29 AM 04/19/2018 12:42 PM Care Teams Posting Clerk Relationship Specialty Start Date End Date Jarod Valladares MD [address] [place] [address] PCP - General 10/16/16 Jyothi Tanner MD [address] [place] [address] [address] [place] [address] Referring Physician Medical Oncology 10/07/17 Michael Bennett Jr., MD [address] [place] [id number] Surgeon Orthopedic Surgery 10/07/17 Marcio Bello MD [address] [place] [id number] Consulting Physician Gastroenterology 10/07/17 Catherine Joshi MD [address] [place] [address] Spinning Room Worker Obstetrics and Gynecology 04/21/19
--- OUTSIDE RECORDS SUMMARY | 2024-08-27 12:48 | XMS_ITS ---
Author Organization [facility] Address [address] [place] [address] Care Team Providers Care Strategic Accounts Manager Name Role Phone Jarod Valladares MD Primary Care Provider [phone] Jyothi Tanner MD Unavailable Donald Shirley MD, Michael Shultz Unavailable [phone] Marcio Bello MD Unavailable [phone] Catherine Joshi MD Unavailable [phone] Active Problems Problem Noted Date Diagnosed Date Acute non-recurrent maxillary sinusitis 10/27/19 23 Assessment & Plan (10/26/2022 3:05 PM CDT): [...] (01/25/2020): Added automatically from request for surgery [id number] Encounter for Medicare annual wellness exam 03/20 [...] Depression Assessment & Plan (06/19/2024 2:50 PM BARK SKINNER): Chronic and stable On lexapro And buspar Chronic bilateral low back pain without sciatica 12/02/2013 Overview (10/21/2016): Chronic low back pain Gastroesophageal reflux disease without esophagi tis 12/02/2013 Overview (10/23/2016): GERD (gastroesophageal reflux disease) Supraventricular tachycardia 12/02/2013 Overview (10/23/2016): SVT (supraventricular tachycardia) Menopausal syndrome 12/02/2013 Overview (10/24/2016): Menopausal syndrome History of malignant neoplasm of breast 08/02/19 14 Assessment & Plan (06/19/2024 2:51 PM BARK SKINNER): Chronic and stable Last maMMOGRAM NL [place] 09/11 BMD ARRANGED 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 11/17/2012 Current Oncology Plans No current plan information found. Past Plans Specialty Infusion Treatment Plan Name Start Date Discontinue Date Treatment Medications Discontinue Reason Plan Provider DENOSUMAB (PROLIA) INJECTION 12/31/2017 05/26/2023 No medications scheduled. Automatic discontinuation of dormant plans Jyothi Tanner MD Radiation Treatments * No radiation treatments are documented for this patient in [facility]. Treatments may have been administered in another system. Lifetime Dose Tracking * Chemical Lifetime Dose Automatic Entry Manual Entr y Fluoro Time 1.2 minutes 1.2 minutes 0 minutes Air kerma at the reference point (Ka,r) 3 mGy 3 mGy 0 mGy DLP 271 mGycm 271 mGycm 0 mGycm
--- OUTSIDE RECORDS SUMMARY | 2024-08-27 12:48 | XMS_ITS | Clinical Summary ---
Author Organization [facility] Address [address] [place] [address] Care Team Providers Care Sr. Manager Marketing Name Role Phone Blaine Jarod Valencia MD Primary Care Provider [phone] Jyothi Tanner MD Unavailable Donald Shirley MD, Michael Shultz Unavailable [phone] Marcio Bello MD Unavailable [phone] Catherine Joshi MD Unavailable Allergies Active Allergy Reactions Criticality Noted Date [...] 2 puffs q 8hrs prn 1 each 12/17/2023 Active busPIRone (BUSPAR) 7.5 mg tabletIndicatio [...] (01/25/2020): Added automatically from request for surgery [id number] Encounter for Medicare annual wellness exam 03/20 [...] Depression Assessment & Plan (06/19/2024 2:50 PM PANAMA HAT BLOCKER): Chronic and stable On lexapro And buspar Chronic bilateral low back pain without sciatica 12/02/2013 Overview (10/21/2016): Chronic low back pain Gastroesophageal reflux disease without esophagi tis 12/02/2013 Overview (10/23/2016): GERD (gastroesophageal reflux disease) Supraventricular tachycardia 12/02/2013 Overview (10/23/2016): SVT (supraventricular tachycardia) Menopausal syndrome 12/02/2013 Overview (10/24/2016): Menopausal syndrome History of malignant neoplasm of breast 08/02/19 14 Assessment & Plan (06/19/2024 2:51 PM PANAMA HAT BLOCKER): Chronic and stable Last maMMOGRAM NL IN 09/11 BMD ARRANGED 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 11/17/2012 Encounters Date Type Department Care Team Description 06/19/2024 3:10 PM PANAMA HAT BLOCKER Lab [facility] [address] [place] [address] Preventative health care; Vitamin D deficiency 06/19/2024 2:30 PM PANAMA HAT BLOCKER Office Visit [facility] [address] [place] [address] Jarod Valladares MD Recurrent major depressive disorder, in full remission (CMS/HCC) (HCC) (Primary Dx); History of malignant neoplasm of breast; Menopause; Preventative health care; Vitamin D deficiency 05/30/2024 [facility] [address] [address] Alea Larson MA 05/29/2024 [facility] [address] [address] Alea Larson MA from Last 3 Months Immunizations Name Administration Dates Next Due Influenza, [...] 01/25/2020 ZOSTER LIVE 05/28/2011 ZOSTER Recombinant 07/06/2022,03/18/2022 Surgical History Surgery Date Site/Laterality Comments OTHER SURGICAL HISTORY 07/19/2010 - 07/18/2011 RT thumb DJD: RT thumb arthroplast - Dr Bennett UNLISTED PROCEDURE LYMPH SYSTEM 12/27/2012 N/A HYSTERECTOMY Bilateral age 26 COLONOSCOPY 08/10/2012 OOPHORECTOMY BREAST BIOPSY Left BREAST LUMPECTOMY 07/19/2013 - 07/18/2014 Left breast ca with radiation and chemo TOTAL ABDOMINAL HYSTERECTOMY W/ BILATERAL SALPINGOOPHORECTOMY Medical History Medical History Date Comments Hx Other Medical RT thumb DJD Emphysema of lung (HCC) PONV (postoperative nausea and vomiting) Fibrocystic breast Malignant neoplasm of female breast (HCC) 2013 Cancer, breast lt History of radiation therapy 2013 lef t breast ca History of chemotherapy 2013 left dahlia ast ca Cervical cancer (CMS/HCC) (HCC) 1976 Family History Medical History Relation Name Comments Anesthesia problems Neg Hx Breast cancer Neg Hx Ovarian cancer Neg Hx Thyroid cancer Neg Hx Social History Tobacco Use Types Packs/Day Years [...] on file Legal Sex Female 1:44 AM PANAMA HAT BLOCKER Gender Identity Not on file Sexual Orientation Not on file Occupation Industry Job Start Date Job End Date Retired Not on file Not on file Not on file Obstetrics History Para Term AB IAB SAB Ectopic Multiple Livin g Live Births 2 2 2 Date Outcome GA Total Labor Labor/2nd/3rd Weight Sex Type Anes PTL Yakelin A1 A5 Name Clin 1969 Term 3.572 kg (7 lb 14 oz) M Vag-Sp ont 1974 Term 3.544 kg (7 lb 13 oz) F Vag-Sp ont Last Filed Vital Signs Vital Sign Reading Time Taken Comments Blood Pressure 116/64 06/19/2024 2:40 PM PANAMA HAT BLOCKER Pulse 78 06/19/2024 2:40 PM PANAMA HAT BLOCKER Temperature 36.2 C (97.1 F) 06/19/2024 2:40 PM PANAMA HAT BLOCKER Respiratory Rate 16 06/19/2024 2:40 PM PANAMA HAT BLOCKER Oxygen Saturation 98% 06/19/2024 2:40 PM PANAMA HAT BLOCKER Inhaled Oxygen Concentration - - Weight 73.6 kg (162 lb 3.2 oz) 06/19/2024 2:40 P M PANAMA HAT BLOCKER Height 167.6 cm (5' 6 ) 06/19/2024 2:40 PM PANAMA HAT BLOCKER Body Mass Index 26.18 06/19/2024 2:40 PM PANAMA HAT BLOCKER Plan of Treatment Health Maintenance Due Date Last Done Comments Hepatitis B Screening 1968 Pneumococcal vaccine 65+ (2 of 2 - PPSV23 or PCV20) 10/01/2017 10/01/2016 Osteoporosis Screening-Bone Density Scan 06/30/2023 06/30/2021, 06/01/2018, 05/31/2017, Additional history exists Covid-19 Vaccine ( - 2023-2 5 season) 2024 08/18/2021, 08/18/2021, 11/12/2020, Additional history exists Breast Cancer Screening-Mammogram 09/09/2024 09/09/2023, 08/05/2022, 06/30/2021, Additional history exists Depression Screening 12/16/2024 12/17/2023, 09/17/2022, 09/15/2021, Additional history exists Fall Risk Assessment 12/16/2024 12/17/2023, 09/17/2022, 09/15/2021, Additional history exists Well Visit 65+ 12/16/2024 12/17/2023, 0308/2022, 09/15/2021, Additional history exists Colon Cancer Screening-Colonoscopy 04/19/2028 04/19/2018, 08/10/2012 DTaP/Tdap/Td Vaccine (2 - Td or Tdap) 01/24/2030 01/25/2020 Colon Cancer Screening-CT Colonography Discontinued 04/19/2018, 08/10/2012 Colon Cancer Screening-DNA Stool Discontinued 04/19/20 18, 08/10/2012 Colon Cancer Screening-FIT Discontinued 04/19/2018, Colon Cancer Screening-Sigmoidoscopy Discontinued 04/19/2018, 08/10/2012 Hepatitis C Screening Completed 05/18/2019 Zoster Vaccine Completed 07/06/2022, 02/18, 05/28/2011 Influenza Vaccine Completed 04/22/2024, , 05/05/2022, Additional history exists Medical Devices Implanted Type Area Engineer Technical Staff Device Identifier Shelf Expiration Date Model / Serial / Lot Diego And NephPathAR/Richco/O rtho [id number] Evos [id number] 8x1.8mm 5 Hole Low Profile Variable Angle Lock - [id number] Implanted:Qty: 1 on 01/25/2020 by Zeina Bryant MD at [facility] Right: Ankle Diego [employer] Nephew/Richco/Or tho [id number] / / Diego [employer] Nephew/Richco/O rtho [id number] Evos 3.5mm 12mm Self Tap Cortex Screw Bone Sterile - [id number] Implanted:Qty: 2 on 01/25/2020 by Zeina Bryant MD at [facility] Right: Ankle [employer] Nephew/Richco/Or tho [id number] / / Diego [employer] Nephew/Richco/O rtho [id number] Evos 3.5mm 14mm Self Tap Cortex Screw Bone Sterile - [id number] Implanted:Qty: 1 on 01/25/2020 by Zeina Bryant MD at [facility] Right: Ankle Diego [employer] Nephew/Richco/Or tho [id number] / / Diego [employer] Nephew/Richco/O rtho [id number] Evos 3.5mm 85mm Self Tap Cortex Screw Bone Sterile - [id number] Implanted:Qty: 1 on 01/25/2020 by Zeina Bryant MD at [facility] Right: Ankle Diego [employer] Nephew/Richco/Or tho [id number] / / Diego [employer] Nephew/Richco/O rtho [id number] Evos 3.5mm 70mm Self Tap Cortex Screw Bone Sterile - [id number] Implanted:Qty: 1 on 01/25/2020 by Zeina Bryant MD at [facility] Right: Ankle Diego [employer] Nephew/Richco/Or tho [id number] / / Diego [employer] Nephew/Richco/O rtho [id number] 2.7mm 4.3mm 16mm Self Tap Lock T8 2mm Screw Bone Evos - [id number] Implanted:Qty: 3 on 01/25/2020 by Zeina Bryant MD at [facility] Right: Ankle [employer]hew/Richco/Or tho [id number] / / Diego [employer] Nephew/Richco/O rtho [id number] 2.7mm 4.3mm 14mm Self Tap Lock Small Bone Long Bone T8 2mm Screw - [id number] Implanted:Qty: 1 on 01/25/2020 by Zeina Bryant MD at [facility] Right: Ankle [employer]hew/Richco/Or tho [id number] / / Synthes 207.736 4mm 5mm 36mm Cannulated Self Tap Self Drill Small Hexagonal - [id number] Implanted:Qty: 1 on 01/25/2020 by Zeina Bryant MD at [facility] Right: Ankle Synthes I 207.736 / / Explanted Type Area Engineer Technical Staff Device Identifier Shelf Expiration Date Model / Serial / Lot Diego [employer] Nephew/Richco/O rtho [id number] 2.7mm 4.5mm 30mm Self Retaining Screwdriver Self Tap Flat Head - [id number] Explanted:Qty: 1 on 01/25/2020 at [facility] Right: Ankle [employer] Nephew/Richco/Or tho [id number] / / Procedures Procedure Name Priority Date/Time Associated Diagnosis Comments EGFR Routine 06/19/2024 3:02 PM PANAMA HAT BLOCKER Preventative health care DIFFERENTIAL AUTO Routine 06/19/2024 3:0 2 PM PANAMA HAT BLOCKER Preventative health care CBC WITH AUTO DIFFERENTIAL Routine 06/19/2024 3:02 PM PANAMA HAT BLOCKER Preventative health care COMPREHENSIVE METABOLIC PANEL Routine 06/19/2024 3:02 PM PANAMA HAT BLOCKER Preventative health care LIPID PANEL Routine 06/19/2024 3:02 PM PANAMA HAT BLOCKER Preventative health care VITAMIN D 25 HYDROXY Routine 06/19/2024 3:02 PM PANAMA HAT BLOCKER Preventative health care Vitamin D deficiency SCREENING MAMMOGRAM BILATERAL W REDD Schedule Routine, Read Routine (OP Routine) 09/09/2023 1:18 PM PANAMA HAT BLOCKER Screening mammogram, encounter for DEXA AXIAL SKELETON BONE DENSITY 1 OR MORE SITES Schedule Routine, Read Routine (OP Routine) 06/30/2021 10:01 AM PANAMA HAT BLOCKER Encounter for screening for osteoporosis HEPATITIS PANEL, ACUTE Routine 05/18/2019 10:57 AM CDT Elevated LFTs COLONOSCOPY 04/19/2018 8:50 AM CDT from Last 3 Months or Most Recently Relevant to Health Maintenance Results * eGFR (06/19/2024 3:02 PM PANAMA HAT BLOCKER) eGFR >90 >=60 mL/min/1. 73 m2 Comment: [...] of Race in Diagnosing Kidney Disease, JASN 2020). The CKD-EPI equation should not be used for patients with unstable renal function and has not been validated in children and those over 70. Current interpretive data was last reviewed 2021. Testing performed by: [facility], [address] [place] [address]., [address] Blood 06/19/2024 3:02 PM PANAMA HAT BLOCKER 06/19/2024 9:36 PM PANAMA HAT BLOCKER us Jarod Valladares MD LAB BLOOD ORDERABLES Final Result H[facility] [address] [facility] Department [place] [address] * Differential, auto (06/19/2024 3:02 PM PANAMA HAT BLOCKER) Neutrophil abs 6.4 1.5 - 6.5 K/cumm Comment:Testing performed by : [address] [address] Imm gran abs 0.0 0.0 - 0.1 K/cumm [facility] CH Comment:Testing performed by : [facility], [address] [place] [address]., [address] Lymphocyte abs 2.9 0.8 - 3.3 K/cumm [facility] CH Comment:Testing performed by : [address] [address] Monocyte abs 0.4 0.2 - 0.8 K/cumm [facility] CH Comment:Testing performed by : [facility], [address] [place] [address]., [address] Eosinophil abs 0.2 0.0 - 0.5 K/cumm [facility] Comment:Testing performed by : [address] [address] Basophil abs 0.1 0.0 - 0.1 K/cumm [facility] Comment:Testing performed by : [address] [address] Neutrophil pct 64.0 % [facility] Comment: Interpretive Data Percent cell count reference ranges are not reported, since discordance with absolute values may lead to misinterpretation of CBC data. Current Interpretive Data was last revised on 2017. Testing performed by: [address] [address] Imm gran pct 0.3 % [facility] Comment: Interpretive Data Percent cell count reference ranges are not reported, since discordance with absolute values may lead to misinterpretation of CBC data. Current Interpretive Data was last revised on 2017. Testing performed by: [address] [address] Lymphocyte pct 28.7 % [facility] CH Comment: Interpretive Data Percent cell count reference ranges are not reported, since discordance with absolute values may lead to misinterpretation of CBC data. Current Interpretive Data was last revised on 2017. Testing performed by: [address], [address] Monocyte pct 4.2 % [facility] CH Comment: Interpretive Data Percent cell count reference ranges are not reported, since discordance with absolute values may lead to misinterpretation of CBC data. Current Interpretive Data was last revised on 2017. Testing performed by: [address] [address] Eosinophil pct 2.1 % HAY Comment: Interpretive Data Percent cell count reference ranges are not reported, since discordance with absolute values may lead to misinterpretation of CBC data. Current Interpretive Data was last revised on 2017. Testing performed by: [address] [address] Basophil pct 0.7 % HAY Comment: Interpretive Data Percent cell count reference ranges are not reported, since discordance with absolute values may lead to misinterpretation of CBC data. Current Interpretive Data was last revised on 2017. Testing performed by: [address] [address] Blood 06/19/2024 3:02 PM PANAMA HAT BLOCKER 06/19/2024 9:19 PM PANAMA HAT BLOCKER us Jarod Valladares MD LAB BLOOD ORDERABLES Final Result Performing Organization Address City/State/[facility] Co de Phone Number [address] Department [place] [address] * (ABNORMAL) CBC with auto differential (06/19/2024 3:02 PM PANAMA HAT BLOCKER) WBC 10.0(H) 3.8 - 9.9 K/cumm Comment:Testing performed by : [address] [address] Hgb 12.4 11.9 - 15.5 g/dL HAY Comment:Testing performed by : [address] [address] Hct 40.2 35.6 - 45.5 % HAY Comment:Testing performed by : [address] [address] Plt 508(H) 150 - 400 K/cumm HAY Comment:Testing performed by : [address] [address] MPV 9.9 9.1 - 12.3 fL HAY Comment:Testing performed by : [address], [address] RBC 3.79(L) 3.90 - 5.20 M/cumm [facility] Comment:Testing performed by : [facility], [address] [place] [address], [address] MCV 106.1(H) 81.3 - 96.4 fL [facility] Comment:Testing performed by : [facility], [address] [place] [address], [address] MCH 32.7 27.1 - 33.3 pg HAY Comment:Testing performed by : [facility], [address] [place] [address], [address] MCHC 30.8(L) 32.3 - 35.7 g/dL [facility] Comment:Testing performed by : [address], [address] RDW CV 15.2(H) 11.1 - 14.9 % [facility] Comment:Testing performed by : [facility], [address] [place] [address], [address] RDW SD 59.4(H) 35.7 - 48.1 fL [facility] Comment:Testing performed by : [address], [address] NRBC abs 0.03(H) 0.00 - 0.01 K/cumm [facility] Comment:Testing performed by : [address], [address] Blood 06/19/2024 3:02 PM PANAMA HAT BLOCKER 06/19/2024 9:19 PM PANAMA HAT BLOCKER Jarod Valladares MD LAB BLOOD ORDERABLES Final Result [address] Department [place] [address] * (ABNORMAL) Vitamin D 25 hydroxy (06/19/2024 3:02 PM PANAMA HAT BLOCKER) Pathologist [facility] Vitamin D 25-OH 21(L) 30 - 80 ng/mL Comment:Testing performed by : [address], [address] Blood 06/19/2024 3:02 PM PANAMA HAT BLOCKER 06/19/2024 9:19 PM PANAMA HAT BLOCKER us Jarod Valladares MD LAB BLOOD ORDERABLES Final Result [facility] [address] [facility] Department [place] [address] * Lipid panel (06/19/2024 3:02 PM PANAMA HAT BLOCKER) Cholesterol 198 30 - 199 mg/dL Comment: [...] last revised on 2018. Testing performed by: [address] [address] Triglycerides 93 <=149 mg/dL HAY Comment: Interpretive [...] last revised on 2018. Testing performed by: [address] [address] HDL 69 >=40 mg/dL HAY Comment: Interpretive [...] last revised on 2018. Testing performed by: [facility], [address] [place] [address]., [address] LDL, calculated 112 <=129 mg/dL HAY Comment: Interpretive Data Ages < or = 19 years Acceptable: <110 mg/dL Borderline high: 110-129 mg/dL High: >or= 130 mg/dL Ages > or = 20 years Optimal: <100 mg/dL Near optimal: 100-129 mg/dL Borderline high: 130-159 mg/dL High: >160 mg/dL Calculated using the Familia LDL-C estimating equation. This equation was implemented on 2024. Prior to this date LDL-C was estimated using the Friedewald equation. Literature References: 1. Expert Panel on Integrated Guidelines for Cardiovascular Health and Risk Reduction in Children and Adolescents. Pediatrics 2011;128:S213 2. NCEP Expert Panel. Circulation 2004;110:227 3. Familia Dennis et al. LEA Cardiol. 2019November 16;5(5):540-548. doi: 10.1001/jamacardio.2020.0013 Current Interpretive Data was last revised on 2024. Testing performed by: [address] [address] Non-HDL Cholesterol 129 mg/dL HAY Comment: Interpretive [...] last revised on 2018. Testing performed by: [facility], [address] [place] [address]., [address] Chol/HDL ratio 3 C[facility]ER Comment:Testing performed by : [address] [address] Blood 06/19/2024 3:02 PM PANAMA HAT BLOCKER 06/19/2024 9:19 PM PANAMA HAT BLOCKER Jarod Valladares MD LAB BLOOD ORDERABLES Final Result [address] Department [place] [address] * Comprehensive metabolic panel (06/19/2024 3:02 PM PANAMA HAT BLOCKER) Sodium 141 135 - 145 mmol/L Comment:Testing performed by : [address] [address] Potassium, pl 4.4 3.3 - 4.9 mmol/L CERNER Comment:Testing performed by : [address] [address] Chloride 103 97 - 110 mmol/L CERNER Comment:Testing performed by : [address] [address] CO2 27 22 - 32 mmol/L CERNER Comment:Testing performed by : [address] [address] Anion gap 11 2 - 15 mmol/L CERNER Comment:Testing performed by : [address] [address] BUN 13 6 - 25 mg/dL C[facility]ER Comment:Testing performed by : [address] [address] Creatinine 0.64 0.60 - 1.10 mg/dL CERNER Comment:Testing performed by : [address] [address] Glucose 92 70 - 199 mg/dL [facility] Comment: Interpretive Data Fasting glucose >/= 126 [...] classification and Diagnosis of Diabetes Diabetes Care 202; 46: S19-S40. Current interpretive data was last revised 2022. Testing performed by: [facility], [address] [place] [address]., [address] Calcium 10.1 8.5 - 10.3 mg/dL [facility] Comment:Testing performed by : [address] [address] Bilirubin, total 0.3 0.1 - 1.2 mg/dL [facility] Comment:Testing performed by : [facility], [address] [place] [address]., [address] Protein, pl 7.1 6.5 - 8.5 g/dL [facility] Comment:Testing performed by : [facility], [address] [place] [address]., [address] Albumin 4.5 3.5 - 5.0 g/dL [facility] Comment:Testing performed by : [address] [address] Alk phos 73 40 - 130 Units/L [facility] Comment:Testing performed by : [facility], [address] [place] [address]., [address] ALT 12 7 - 45 Units/L [facility] Comment:Testing performed by : [address] [address] AST 27 10 - 45 Units/L [facility] Comment:Testing performed by : [address] [address] Blood 06/19/2024 3:02 PM PANAMA HAT BLOCKER 06/19/2024 9:19 PM PANAMA HAT BLOCKER us Jarod Valladares MD LAB BLOOD ORDERABLES Final Result [address] Department [place] [address] * Screening Mammogram Bilateral W Redd (09/09/2023 1:18 PM PANAMA HAT BLOCKER) Anatomical Region Laterality Modality Breast Bilateral Mammography 09/09/2023 1:40 PM PANAMA HAT BLOCKER Impressions 09/09/2023 1:40 PM PANAMA HAT BLOCKER There is no mammographic evidence of malignancy. A 1 year screening mammogram is recommended. BI-RADS: 2 - Benign. The patient has been or will be contacted. The patient will be entered into a reminder system with a target due date of 1 year for her next mammogram. Electronically signed by: Darrian De Jesus M.D. Narrative 09/09/2023 1:40 PM PANAMA HAT BLOCKER EXAMINATION: SCREENING MAMMOGRAM BILATERAL W REDD ORDERING [...] 1 or 2 Site (06/30/2021 10:01 AM PANAMA HAT BLOCKER) Anatomical Region Laterality Modality Body N/A Other 06/30/2021 10:1 9 AM PANAMA HAT BLOCKER Narrative 06/30/2021 10:20 AM PANAMA HAT BLOCKER EXAM DESCRIPTION: DEXA AXIAL SKELETON BONE DENSITY 1 OR MORE SITES REASON FOR STUDY: Post-menopausal female, screening for osteoporosis. Engineer Technical Staff/Model: [employer] (S/N [id number]) CLINICAL INFORMATION: Current height: 66 inches Maximum [...] by Braxton Candelario M.D. AB: Report ID: [id number] Reading Location: [id number] Procedure Note Braxton Candelario MD - 06/30/2021 EXAM DESCRIPTION: DEXA AXIAL SKELETON BONE DENSITY 1 OR MORE SITES REASON FOR STUDY: Post-menopausal female, screening for osteoporosis. Engineer Technical Staff/Model: [employer] (S/N [id number]) CLINICAL INFORMATION: Current height: 66 inches Maximum [...] by Braxton Candelario M.D. AB: Report ID: [id number] Reading Location: [place] [address] us Catherine Joshi MD IMG DXA PROCEDURES [...] LAB MICROBIOLOGY - GENERAL ORDERABLES Final Result [facility] [address] Department [place] [address] * COLONOSCOPY (04/19/2018 8:50 AM CDT) Anatomical Region Laterality Modality Other Narrative Procedure Note Marcio Bello MD - 04/19/2018 8:50 AM CDT [facility] Patient Name: Mariana Bee Procedure Date: 04/19/2018 8:50 AM Date of : 1950 Admit Type: Outpatient Age: 68 Gender: Female Attending MD: Marcio Bello MD Room: [facility] ENDOSCOPY CAPSULE Note Status: Finalized Patient Profile: 68 WF, h/o polyps, no family h/o colon cancer. Procedure: Colonoscopy Indications: High risk colon cancer surveillance: Personalhistory of colonic polyps, Last colonoscopy: July 2012 Referring MD: Jarod Valladares MD Providers: Marcio Bello MD Impression: - The entire examined colon is normal. - Internal hemorrhoids. - No specimens collected. Recommendation: - [facility] - Continue present medications. Medicines: Monitored Anesthesia [...] passed under direct vision.The Pediatric Colonoscope PCF-H190L [id number] was introduced through the anus and advanced [...] polyps K64.8, Other hemorrhoids CPT copyright 2017 [employer]. All rights reserved. The codes documented in this report are preliminary and upon brusher and shearer reviewmay be revised to meet current compliance requirements. Recognized by the [employer] for promoting quality in endoscopy Marcio Bello MD ENDOSCOPY PROCEDURES Final Result from Last 3 Months or Most Recently Relevant to Health Maintenance Insurance [employer] [place] MEDICARE [facility] MEDICARE [facility] MEDICARE [facility] Advance Directives For more information, please contact: [phone] * Full Code (Latest Code Status on File) Date Activated Date Inactivated Comments 01/25/2020 5:43 AM 01/26/2020 10:35 PM * Full Code Date Activated Date Inactivated Comments 04/19/2018 8:29 AM 04/19/2018 12:42 PM Care Teams Sr. Manager Marketing Relationship Specialty Start Date End Date Jarod Valladares MD [address] [address] PCP - General 10/16/16 Jyothi Tanner MD [address] [place] [address] Referring Physician Medical Oncology 10/07/17 Michael Bennett Jr., MD [facility] [place] [address] Surgeon Orthopedic Surgery 10/07/17 Marcio Bello MD [address] [place] [address] Consulting Physician Gastroenterology 10/07/17 Catherine Joshi MD [facility] [place] [address] Freight Associate Obstetrics and Gynecology 04/21/19
--- OUTSIDE RECORDS SUMMARY | 2024-08-27 12:48 | XMS_ITS | Clinical Summary ---
Author Organization [facility] Address [address] [place] [address] Phone Care Team Providers Care Deblocker Name Role Phone Unavailable Unavailable Unavailable Reason for Visit and Chief Complaint The Chief Complaint is: Pt. says she feels like something is inside her vagina, frequent urination,lower back pain x's 3 weeks Problems Includes: Problems addressed during this encounter and other active Problems All Visits Onset Date Resolved Date Provider Condition S tatus Breast Cancer 09/28/2013 ELIAS MCRAE MD Active Last Documented On 09/28/2013 2:50PM ; [facility] Note: S/P L breast lumpectomy Cervical Cancer 09/20/2012 ELIAS Cruz MD Active Last Documented On 09/20/2012 4:12PM ; [facility] Note: At age 26, treated with hysterecto my Depressive Disorder NEC 09/20/2012 ELIAS MCRAE MD Active Last Documented On 09/20/2012 4:08PM ; [facility] Note: takes zoloft Osteoarthritis 09/20/2012 ELIAS MCRAE MD Active Last Documented On 09/20/2012 4:09PM ; [facility] Note: uses lidoderm patch PALPITATIONS 09/20/2012 ELIAS MCRAE MD Active Last Documented On 09/20/2012 4:10PM ; [facility] Note: takes digoxin REFLUX ESOPHAGITIS 09/20/2012 ELIAS HARE MD Active Last Documented On 09/20/2012 4:08PM ; [facility] Note: takes nexium Uterine Cancer 09/20/2012 ELIAS MCRAE MD Active Last Documented On 09/20/2012 4:13PM ; [facility] Note: At age 26, treated with hysterecto my Plan of Treatment - Clinical summary provided to patient - Last Documented On 02/08/2015 12:26PM ; [facility] ACOG HANDOUT GIVEN ON PELVIC FLOOR DISORDERS AND DISCUSSED USE OF PESSARY VS SURGERY. PT DECLINES PESSARY FITTING ND WILL TAKE UROLOGY REFERRAL - Last Documented On 02/08/2015 12:26PM ; [facility] Referrals To Diagnosis Urologist ALEKSANDER ZEPEDA Note: GRADE 2 CYSTOCELE PLEA SE EVALUATE Last Documented On 6 2:39PM ; [facility] Assessments Includes: Assessments from this encounter Findings - Hematuria - Last Documented On 02/08/2015 12:26PM ; [facility] - Vaginal wall prolapse with midline cystocele - Last Documented On 02/08/2015 12:26PM ; [facility] Medical Equipment - Implanted Devices Includes: Current Devices No Medical Equipment Recorded Medications Includes: Medications discussed during this encounter and other current Medications New / Renewed during this visit MARC TORRES RN [facility] on 02/08/2015 Nitrofurantoin Macrocrystal 100 MG Capsule Provider: MARC MORA BC 7 day supply: 14 capsule, 0 refills Diagnosis: HEMATURIA NOS 1 BID USE DIRECTED W/FOOD Pharmacy: [facility] [address] Last Documented On 5 11:09AM By MARC MUÑOZ ; [facility] Current Medications (continue as prescribed) Prolia 60MG/ML Subcutaneous Solution 02/16/2017 Prov ider: Diagnosis: Last Documented On 7 10:44AM By CARIDAD PEREZ ; [facility] BusPIRone HCl 5MG Oral Tablet 02/16/2017 Provider: Diagnosis: Last Documented On 7 10:23AM By ELISHA PEREZ ; [facility] Calcium + D 500-1000-40 MG-UNT-MCG Tablet Chewable Provider: Diagnosis: Last Documented On 12/05/2015 9:10AM By REBEKAH BELLA MA ; [facility] Exemestane 25 MG Tablet 08/23/2014 Provider: Diagnosis: Last Documented On 10/23/2014 9:12AM By MEGHANN PEREZ ; [facility] Zoloft 100 MG OR TABS 09/28/2013 Provider: Diagnosis: Last Documented On 09/28/2013 2:46PM By GER COLBY ; [facility] Zoloft 50 MG OR TABS 09/28/2013 Provider: Diagnosis: Last Documented On 09/28/2013 2:47PM By GER COLBY ; [facility] Digoxin 250 MCG OR TABS 09/20/2012 Provider: Diagnosis: takes for palpitations Last Documented On 3 3:14PM By CARLY FLORES LPN ; [facility] NexIUM 40 MG OR PACK 09/20/2012 Provider: Diagnosis: Last Documented On 3 3:14PM By CARLY FLORES LPN ; [facility] Past Medications on file Terconazole 0.4% VA CREA 04/06/2013 - 04/13/2013 Provi ramila: ELIAS MCRAE MD Diagnosis: i applicatorful per vagina daily for 7 days Last Documented On 04/06/2013 1:23PM By ELIAS MCRAE MD ; [facility] Premarin 0.625 MG OR TABS 09/15/2011 - 09/09/2012 Prov ider: HEIDY ROBINS M.D. Diagnosis: Last Documented On 2 1:09PM By DR. HEIDY ROBINS ; [facility] MetroGel-Vaginal 0.75% VA GEL 03/02/2011 - 03/07/2011 Provider: Diagnosis: PHONED TO [employer] Last Documented On 1 10:57AM By CARLY FLORES LPN ; [facility] Flagyl 500 MG OR TABS 02/23/2011 - 03/02/2011 Provider : Diagnosis: PHONED TO BILL AT [employer] [facility] Last Documented On 1 11:03AM By CARLY FLORES LPN ; [facility] Medications Administered Includes: Administered Medications from this encounter No Administered Medications Recorded Vital Signs Includes: Vital Signs from this encounter Vital Name 02/08/2015 10:46A 02/08/2015 10: 41A Blood Pressure Sitting (mmHg) 142/84 Weight (lb) 144 Height (in) 65.5 Last Documented: On 02/08/2015 10:48A M ; [facility] On 02/08/2015 10:42AM ; [facility] Results Includes: Results discussed during this encounter Urinalysis Manual Lab Entry Ordered by MARC TORRES RN [facility] on 0 02/08/2015 Collected: Reported: 02/08/2015 11:10 Last Documented On 5 11:10AM ; [facility] Reviewed on 02/08/2015; All test results are final unless otherwise noted. color (Straw-yellow) N (Normal) Last Documented On 5 11:10AM ; [facility] clarity (clear) N (Normal) Last Documented On 5 11:10AM ; [facility] Glucose (70-150mg/dL) N (Normal) Last Documented On 11:10AM ; [facility] Bilirubin N (Normal) Last Documented On 11:10AM ; [facility] Ketone N (Normal) Last Documented On 5 11:10AM ; [facility] SP [place] (1.003-1.040) N (Normal) Last Documented On 11:10AM ; [facility] pH (5.00-9.00) N (Normal) Last Documented On 5 11:10AM ; [facility] Protein N (Normal) Last Documented On 11:10AM ; [facility] Urobilinogen 1 (0.2-1.0 EU/dL) A (Abnormal) Last Documented On 5 11:10AM ; [facility] Nitrate N (Normal) Last Documented On 11:10AM ; [facility] Blood 50 A (Abnormal) Last Documented On 5 11:10AM ; [facility] Leukocyte 25 A (Abnormal) Last Documented On 11:10AM ; [facility] History of Present Illness Includes: History of Present Illness from this encounter LACIE GUPTA is a 64 year old female. The patient presents with symptoms consistent with a possible urinary tract infection. See details below. - Medication list reviewed. - Increased urinary frequency DOESN'T FEEL EMPTY - No flank pain Social History Description Last Updated Age of 1st intercourse was was 17 2014 Last Documented On 12:26PM ; [facility] Cigarette smoking 1 pack(s)/day 02/09/20 15 Last Documented On 5 12:26PM ; [facility] Current smoker 02/08/2015 Last Documented On 5 12:26PM ; [facility] In monogamous relationship 02/08/2015 Last Documented On 5 12:26PM ; [facility] Marital history 02/08/2015 Last Documented On 5 12:26PM ; [facility] Non-smoker 02/08/2015 Last Documented On 5 12:26PM ; [facility] Not using alcohol 02/08/2015 Last Documented On 5 12:26PM ; [facility] Not using drugs 02/08/2015 Last Documented On 5 12:26PM ; [facility] Sexually active 02/08/2015 Last Documented On 5 12:26PM ; [facility] Sexually active with 1 partners in the l ast year 02/08/2015 Last Documented On 5 12:26PM ; [facility] Smoking status : Never smoker 02/08/2015 Last Documented On 5 12:26PM ; [facility] Social history changed d/c'd smoking 3 w eeks ago--has been using patches 02/08/2015 Last Documented On 5 12:26PM ; [facility] Social history unchanged 02/08/2015 Last Documented On 5 12:26PM ; [facility] Procedures and Surgical History Includes: Procedures from this encounter Procedures Code Diagnosis Performing Provider Service L ocation Service Date urinalysis was performed 90253 Last Documented On 5 12:17PM ; [facility] Surgical History Last Updated History of hysterectomy [facility] 02/16/2017 Last Documented On 5 10:41AM ; [facility] Surgical / procedural histor y R knee surgery ~R thumb surgery ~L breast lumpectomy ~hernia surgery september 2013 12/05/2015 Last Documented On 5 10:41AM ; [facility] Surgical history unchanged 02/08/2015 Last Documented On 5 12:26PM ; [facility] History of cholecystectomy 09/20/2012 Last Documented On 5 10:41AM ; [facility] History of total abdominal hysterectomy 09/20/2012 Last Documented On 5 10:41AM ; [facility] History of tubal ligation 09/20/2012 Last Documented On 5 10:41AM ; [facility] Bilateral salpingo-oophorectomy 09/09/19 11 Last Documented On 5 10:41AM ; [facility] Breast Biopsy 09/09/2010 Last Documented On 5 10:41AM ; [facility] History of appendectomy 09/09/2010 Last Documented On 5 10:41AM ; [facility] Medical History Includes: Medical History addressed during this encounter Description Last Updated Last mammogram date: 11/201302/16/2017 Last Documented On 5 10:41AM ; [facility] Patient recently had a dexa scan osteopenia 02/16/2017 Last Documented On 5 10:41AM ; [facility] Result: normal 02/16/2017 Last Documented On 5 10:41AM ; [facility] A colonoscopy was performed 2012 017 Last Documented On 5 10:41AM ; [facility] 2 02/16/2017 Last Documented On 5 10:41AM ; [facility] Last pap smear date 09/20/2012 02/16/2017 Last Documented On 5 10:41AM ; [facility] LMP: 1982 02/16/2017 Last Documented On 5 10:41AM ; [facility] Para 2 02/16/2017 Last Documented On 5 10:41AM ; [facility] Result: normal 12/05/2015 Last Documented On 5 10:41AM ; [facility] History of urinary tract infection 02/08 Last Documented On 5 12:26PM ; [facility] Result: abnormal Bx i nfiltrating carcinoma ~Scheduled for next mamm in 09/28/2013 Last Documented On 5 10:41AM ; [facility] No recent change in medical history 11/2012 Last Documented On 5 10:41AM ; [facility] History of menopause 09/20/2012 Last Documented On 5 10:41AM ; [facility] Status post tubal ligation 09/20/2012 Last Documented On 5 10:41AM ; [facility] Vaginal delivery 09/09/2010 Last Documented On 5 10:41AM ; [facility] History of anxiety disorder NOS 09/09/19 11 Last Documented On 5 10:41AM ; [facility] History of chronic reflux esophagitis Last Documented On 5 10:41AM ; [facility] History of depression 09/09/2010 Last Documented On 5 10:41AM ; [facility] History of prior myocardial infarction 0 09/09/2010 Last Documented On 5 10:41AM ; [facility] 2 living children 07/17/2009 Last Documented On 5 10:41AM ; [facility] depression, ~arthritis ~stomach issues ~ ~1976- [facility] ~appendectomy ~ 07/17/2009 Last Documented On 5 10:41AM ; [facility] Status post hysterectomy 07/17/2009 Last Documented On 5 10:41AM ; [facility] Family History Includes: Family History addressed during this encounter Description Last Updated Family history of malignant female breas t neoplasm Patient 02/08/2015 Last Documented On 5 12:26PM ; [facility] Family history of uterine cancer Patient 02/08/2015 Last Documented On 5 12:26PM ; [facility] Family history unchanged 02/08/2015 Last Documented On 5 12:26PM ; [facility] Review of Systems Includes: Review of Systems from this encounter Systemic: No fever and no chills. Head: No headache. Cardiovascular: No chest pain or discomfort. Pulmonary: No dyspnea. Gastrointestinal: No nausea, no vomiting, and no abdominal pain. Genitourinary: Increased urinary frequency. No dysuria. Mental Status Includes: Mental Status from this encounter No Mental Status Recorded Functional Status Includes: Functional Status from this encounter No Functional Status Recorded Physical Exam Includes: Physical Exam from this encounter Allergies Includes: Active Allergies Substance Type Reaction Onset Date Resolved Date Statu s Tetanus Toxoid Adsorbed Intolerance 07/17/2009 Active Last Documented On 7 10:23AM ; [facility] Sulfa Antibiotics Allergy 09/09/2010 A ctive Last Documented On 7 10:23AM ; [facility] Morphine Sulfate Allergy 02/16/2017 Ac tive Last Documented On 7 10:24AM ; [facility] Demerol Allergy 09/20/2012 Active Last Documented On 7 10:23AM ; [facility] Encounters Encounter Provider Location Date Check-In Time Check-Out Time Diagnosis PROBLEM VISIT MARC TORRES RN [facility] DATA ARCHITECT MANAGER 02/09/20 15 10:39AM 11:09AM Vaginal Wall Prolapse Cystocele, Midline,Hemat uria Clinical Notes Includes: Clinical Notes from this encounter No Clinical Notes Recorded
[2024-08-27 12:49] VITALS: BP 129/74; PULSE 92; RESP 20; TEMP 36.6; O2SAT 98
--- OUTSIDE RECORDS SUMMARY | 2024-08-27 12:49 | XMS_ITS ---
Care Plan - [facility] Created on: August 27, 2024 AUSTIN GUPTA : 1950 Sex: Female Author Organization [facility] Address [address] [place] [address] Phone Care Team Providers Care Patternmaker Wood Name Role Phone Unavailable Unavailable Unavailable
--- OUTSIDE RECORDS SUMMARY | 2024-08-27 12:49 | XMS_ITS ---
Author Organization [facility] Address [address] [place] [address] Phone Care Team Providers Care A Class Lineman Name Role Phone Unavailable Unavailable Unavailable Problems Includes: Active, inactive, and resolved Problems All Visits Onset Date Resolved Date Provider Condition S tatus Breast Cancer 09/28/2013 ELIAS MCRAE MD Active Last Documented On 09/28/2013 2:50PM ; [facility] Note: S/P L breast lumpectomy Cervical Cancer 09/20/2012 ELIAS Cruz MD Active Last Documented On 09/20/2012 4:12PM ; [facility] Note: At age 26, treated with hysterecto my Depressive Disorder NEC 09/20/2012 ELIAS MCRAE MD Active Last Documented On 09/20/2012 4:08PM ; [facility] Note: takes zoloft Osteoarthritis 09/20/2012 ELIAS MCRAE MD Active Last Documented On 09/20/2012 4:09PM ; [facility] Note: uses lidoderm patch PALPITATIONS 09/20/2012 ELIAS MCRAE MD Active Last Documented On 09/20/2012 4:10PM ; [facility] Note: takes digoxin REFLUX ESOPHAGITIS 09/20/2012 ELIAS HARE MD Active Last Documented On 09/20/2012 4:08PM ; [facility] Note: takes nexium Uterine Cancer 09/20/2012 ELIAS MCRAE MD Active Last Documented On 09/20/2012 4:13PM ; [facility] Note: At age 26, treated with hysterecto my Cardiac Failure 09/09/2010 ELIAS Cruz MD Inactive Last Documented On 3 4:07PM ; [facility] HEARTBURN 09/09/2010 ELIAS MCRAE MD Inactive Last Documented On 3 4:07PM ; [facility] Note: takes nexium for gerd HYPERTENSION NOS 09/09/2010 ELIAS MCRAE MD In active Last Documented On 3 4:07PM ; [facility] PRESENILE DEPRESSION 09/09/2010 ELIAS Hardin Inactive Last Documented On 3 4:08PM ; [facility] Note: takes zoloft Plan of Treatment Findings Encounter Date Ordered Clinical summary pro vided to patient PROBLEM VISIT with MARC TORRES RN [facility] 02/08/2015 Last Documented On 5 12:26PM ; [facility] Referrals To Diagnosis Urologist CYSTOCELE, 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 DRIVER Note: GRADE 2 CYSTOCELE PLEA SE EVALUATE Last Documented On 6 2:39PM ; [facility] Instructions to patient Instructions for patient : B reast Self Exam discussed Last Documented On 7 10:28AM ; [facility] Instructions for patient : B reast Self Exam discussed Last Documented On 6 9:12AM ; [facility] Instructions for patient : B reast Self Exam discussed Last Documented On 5 9:15AM ; [facility] Instructions for patient : B reast Self Exam discussed Last Documented On 4 2:53PM ; [facility] Instructions for patient : K eep the area around the vulva dry. Allow the area to have exposure to air. Avoid irritants such as fabric softeners and perfumed soaps.~ Last Documented On 3 1:25PM ; [facility] Instructions for patient : B reast Self Exam discussed Last Documented On 3 3:38PM ; [facility] Instructions for patient : B reast Self Exam discussed. Reviewed monthly self breast examination and technique Last Documented On 2 1:07PM ; [facility] Recommend diet and exercise at least 30 min three times per week Last Documented On 2 1:07PM ; [facility] Discussed Gardasil vaccinati on and recommend vaccination for HPV prevention. Handout given. Patient undertsands sexual transmission of high-risk HPV and association with abnormal pap smear and cervical cancer. recommend to decrease high risk behaviors such as: number of sexual partners, smoking, and contraceptive use Last Documented On 2 1:07PM ; [facility] Recommend preventative vacci nation including but not limited to influenza/flu vaccine, DTP, Rubella, Hepatitis B vaccination series Last Documented On 2 1:07PM ; [facility] Recommend annual pap smear e xamination or every three year if high risk hpv negative and 3 consecutive normal pap examination during preceding three years Last Documented On 2 1:07PM ; [facility] Recommend TSH, fasting gluco se, fasting lipid panel, CBC, BMP Last Documented On 2 1:07PM ; [facility] Recommend Calcium supplement ation and weight bearing exercise Last Documented On 2 1:07PM ; [facility] Recommended Bone Density Last Documented On 2 1:07PM ; [facility] Recommended Colonoscopy Pt r eferred to Gastroenetrologist. Pt understands that recommendation for colonoscopy is every 10 years after the age of 50 or age of 40 if first degree relative with history of colon cancer. Patient understands that failure to follow recommendation can lead to delayed diagnosis of colon cancer and patient accepts all responsibility regarding scheduling and follow up with semiconductor processing technician Last Documented On 2 1:07PM ; [facility] Instructions for patient : B reast Self Exam discussed. Reviewed monthly self breast examination and technique Last Documented On 1 1:52PM ; [facility] Recommend diet and exercise at least 30 min three times per week Last Documented On 1 1:52PM ; [facility] Discussed Gardasil vaccinati on and recommend vaccination for HPV prevention. Handout given. Patient undertsands sexual transmission of high-risk HPV and association with abnormal pap smear and cervical cancer. recommend to decrease high risk behaviors such as: number of sexual partners, smoking, and contraceptive use Last Documented On 1 1:52PM ; [facility] Recommend preventative vacci nation including but not limited to influenza/flu vaccine, DTP, Rubella, Hepatitis B vaccination series Last Documented On 1 1:52PM ; [facility] Recommend annual pap smear e xamination or every three year if high risk hpv negative and 3 consecutive normal pap examination during preceding three years Last Documented On 1 1:52PM ; [facility] Recommend TSH, fasting gluco se, fasting lipid panel, CBC, BMP Last Documented On 1 1:52PM ; [facility] Recommend Calcium supplement ation and weight bearing exercise Last Documented On 1 1:52PM ; [facility] Recommended Bone Density Last Documented On 1 1:52PM ; [facility] Recommended Colonoscopy Pt r eferred to Gastroenetrologist. Pt understands that recommendation for colonoscopy is every 10 years after the age of 50 or age of 40 if first degree relative with history of colon cancer. Patient understands that failure to follow recommendation can lead to delayed diagnosis of colon cancer and patient accepts all responsibility regarding scheduling and follow up with semiconductor processing technician Last Documented On 1 1:52PM ; [facility] Education and Decision Aids were provided during visit for: STD screening offered and de clined Last Documented On 7 10:28AM ; [facility] Bone Mineral Density Screeni ng guidelines reviewed Last Documented On 7 10:28AM ; [facility] Patient Education: Daily page cium and vitamin D Last Documented On 7 10:28AM ; [facility] Patient Education: weight be aring exercise Last Documented On 7 10:28AM ; [facility] Colonoscopy screening guidel truong discussed Last Documented On 7 10:28AM ; [facility] STD screening offered and de clined Last Documented On 6 9:12AM ; [facility] Bone Mineral Density Screeni ng guidelines reviewed Last Documented On 6 9:12AM ; [facility] Patient Education: Daily page cium and vitamin D Last Documented On 6 9:12AM ; [facility] Patient Education: weight be aring exercise Last Documented On 6 9:12AM ; [facility] Colonoscopy screening guidel truong discussed Last Documented On 6 9:12AM ; [facility] STD screening offered and de clined Last Documented On 5 9:15AM ; [facility] Bone Mineral Density Screeni ng guidelines reviewed Last Documented On 5 9:15AM ; [facility] Patient Education: Daily page cium and vitamin D Last Documented On 5 9:15AM ; [facility] Patient Education: weight be aring exercise Last Documented On 5 9:15AM ; [facility] Colonoscopy screening guidel truong discussed Last Documented On 5 9:15AM ; [facility] STD screening offered and de clined Last Documented On 4 2:53PM ; [facility] Bone Mineral Density Screeni ng guidelines reviewed Last Documented On 4 2:53PM ; [facility] Patient Education: Daily page cium and vitamin D Last Documented On 4 2:53PM ; [facility] Patient Education: weight be aring exercise Last Documented On 4 2:53PM ; [facility] Colonoscopy screening guidel truong discussed Last Documented On 4 2:53PM ; [facility] STD screening offered and de clined Last Documented On 3 3:38PM ; [facility] Bone Mineral Density Screeni ng guidelines reviewed Last Documented On 3 3:38PM ; [facility] Patient Education: Daily page cium and vitamin D Last Documented On 3 3:38PM ; [facility] Patient Education: weight be aring exercise Last Documented On 3 3:38PM ; [facility] Colonoscopy screening guidel truong discussed Last Documented On 3 3:38PM ; [facility] Assessments Includes: Assessments for all patient encounters Findings Encounter Date Routine pelvic exam PERSONAL INJURY LITIGATION PARALEGAL EXAM with ELIAS MCRAE MD 02/16/2017 Last Documented On 7 11:40AM ; [facility] Screening Malig. Neoplasm Rectum PERSONAL INJURY LITIGATION PARALEGAL EXAM with Dagmar MCRAE MD 02/16/2017 Last Documented On 7 11:40AM ; [facility] Routine pelvic exam PERSONAL INJURY LITIGATION PARALEGAL EXAM with ELIAS MCRAE MD 12/05/2015 Last Documented On 6 9:26AM ; [facility] Screening Malig. Neoplasm Rectum PERSONAL INJURY LITIGATION PARALEGAL EXAM with Dagmar MCRAE MD 12/05/2015 Last Documented On 6 9:26AM ; [facility] Hematuria PROBLEM VISIT with MARC TORRES RN [facility] 02/08/2015 Last Documented On 5 12:26PM ; [facility] Vaginal wall prolapse with pola slaughter cystocele PROBLEM VISIT with MARC TORRES RN [facility] 02/08/2015 Last Documented On 5 12:26PM ; [facility] Routine pelvic exam PERSONAL INJURY LITIGATION PARALEGAL EXAM with ELIAS MCRAE MD 10/23/2014 Last Documented On 5 9:28AM ; [facility] Screening Malig. Neoplasm Rectum PERSONAL INJURY LITIGATION PARALEGAL EXAM with Dagmar MCRAE MD 10/23/2014 Last Documented On 5 9:28AM ; [facility] Routine pelvic exam PERSONAL INJURY LITIGATION PARALEGAL EXAM with ELIAS MCRAE MD 09/28/2013 Last Documented On 4 3:08PM ; [facility] Screening Malig. Neoplasm Rectum PERSONAL INJURY LITIGATION PARALEGAL EXAM with Dagmar MCRAE MD 09/28/2013 Last Documented On 4 3:08PM ; [facility] Mackenzie albicans vulvovaginitis PROBLEM VISIT wi ELIAS MCRAE MD 04/06/2013 Last Documented On 3 1:27PM ; [facility] Routine pelvic exam NEW PERSONAL INJURY LITIGATION PARALEGAL EXAM with ELIAS YANG MD 09/20/2012 Last Documented On 3 4:13PM ; [facility] Asymptomatic postmenopausal status PERSONAL INJURY LITIGATION PARALEGAL EXAM with HEIDY ROBINS M.D. 09/15/2011 Last Documented On 2 1:10PM ; [facility] MAMMOGRAM SCREENING PERSONAL INJURY LITIGATION PARALEGAL EXAM with HEIDY NUNES M.D. 09/15/2011 Last Documented On 2 1:10PM ; [facility] NORMAL FEMALE EXAM PERSONAL INJURY LITIGATION PARALEGAL EXAM with HEIDY MARKS M.D. 09/15/2011 Last Documented On 2 1:10PM ; [facility] Screening Malig. Neoplasm Rectum PERSONAL INJURY LITIGATION PARALEGAL EXAM with Dagmar ROBINS M.D. 09/15/2011 Last Documented On 2 1:10PM ; [facility] Lichen sclerosus et atrophicus PROBLEM VISIT wit h HEIDY ROBINS M.D. 02/18/2011 Last Documented On 1 3:16PM ; [facility] URINARY FREQUENCY PROBLEM VISIT with HEIDY SCHMITZ M.D. 02/18/2011 Last Documented On 1 3:16PM ; [facility] Asymptomatic postmenopausal status PERSONAL INJURY LITIGATION PARALEGAL EXAM with HEIDY ROBINS M.D. 09/09/2010 Last Documented On 1 2:01PM ; [facility] MAMMOGRAM SCREENING PERSONAL INJURY LITIGATION PARALEGAL EXAM with HEIDY NUNES M.D. 09/09/2010 Last Documented On 1 2:01PM ; [facility] NORMAL FEMALE EXAM PERSONAL INJURY LITIGATION PARALEGAL EXAM with HEIDY MARKS M.D. 09/09/2010 Last Documented On 1 2:01PM ; [facility] Screening Malig. Neoplasm Rectum PERSONAL INJURY LITIGATION PARALEGAL EXAM with Dagmar ROBINS M.D. 09/09/2010 Last Documented On 1 2:01PM ; [facility] Instructions Includes: Instructions for all patient encounters Instructions to patient Instructions for patient : B reast Self Exam discussed Last Documented On 7 10:28AM ; [facility] Instructions for patient : B reast Self Exam discussed Last Documented On 6 9:12AM ; [facility] Instructions for patient : B reast Self Exam discussed Last Documented On 5 9:15AM ; [facility] Instructions for patient : B reast Self Exam discussed Last Documented On 4 2:53PM ; [facility] Instructions for patient : K eep the area around the vulva dry. Allow the area to have exposure to air. Avoid irritants such as fabric softeners and perfumed soaps.~ Last Documented On 3 1:25PM ; [facility] Instructions for patient : B reast Self Exam discussed Last Documented On 3 3:38PM ; [facility] Instructions for patient : B reast Self Exam discussed. Reviewed monthly self breast examination and technique Last Documented On 2 1:07PM ; [facility] Recommend diet and exercise at least 30 min three times per week Last Documented On 2 1:07PM ; [facility] Discussed Gardasil vaccinati on and recommend vaccination for HPV prevention. Handout given. Patient undertsands sexual transmission of high-risk HPV and association with abnormal pap smear and cervical cancer. recommend to decrease high risk behaviors such as: number of sexual partners, smoking, and contraceptive use Last Documented On 2 1:07PM ; [facility] Recommend preventative vacci nation including but not limited to influenza/flu vaccine, DTP, Rubella, Hepatitis B vaccination series Last Documented On 2 1:07PM ; [facility] Recommend annual pap smear e xamination or every three year if high risk hpv negative and 3 consecutive normal pap examination during preceding three years Last Documented On 2 1:07PM ; [facility] Recommend TSH, fasting gluco se, fasting lipid panel, CBC, BMP Last Documented On 2 1:07PM ; [facility] Recommend Calcium supplement ation and weight bearing exercise Last Documented On 2 1:07PM ; [facility] Recommended Bone Density Last Documented On 2 1:07PM ; [facility] Recommended Colonoscopy Pt r eferred to Gastroenetrologist. Pt understands that recommendation for colonoscopy is every 10 years after the age of 50 or age of 40 if first degree relative with history of colon cancer. Patient understands that failure to follow recommendation can lead to delayed diagnosis of colon cancer and patient accepts all responsibility regarding scheduling and follow up with semiconductor processing technician Last Documented On 2 1:07PM ; [facility] Instructions for patient : B reast Self Exam discussed. Reviewed monthly self breast examination and technique Last Documented On 1 1:52PM ; [facility] Recommend diet and exercise at least 30 min three times per week Last Documented On 1 1:52PM ; [facility] Discussed Gardasil vaccinati on and recommend vaccination for HPV prevention. Handout given. Patient undertsands sexual transmission of high-risk HPV and association with abnormal pap smear and cervical cancer. recommend to decrease high risk behaviors such as: number of sexual partners, smoking, and contraceptive use Last Documented On 1 1:52PM ; [facility] Recommend preventative vacci nation including but not limited to influenza/flu vaccine, DTP, Rubella, Hepatitis B vaccination series Last Documented On 1 1:52PM ; [facility] Recommend annual pap smear e xamination or every three year if high risk hpv negative and 3 consecutive normal pap examination during preceding three years Last Documented On 1 1:52PM ; [facility] Recommend TSH, fasting gluco se, fasting lipid panel, CBC, BMP Last Documented On 1 1:52PM ; [facility] Recommend Calcium supplement ation and weight bearing exercise Last Documented On 1 1:52PM ; [facility] Recommended Bone Density Last Documented On 1 1:52PM ; [facility] Recommended Colonoscopy Pt r eferred to Gastroenetrologist. Pt understands that recommendation for colonoscopy is every 10 years after the age of 50 or age of 40 if first degree relative with history of colon cancer. Patient understands that failure to follow recommendation can lead to delayed diagnosis of colon cancer and patient accepts all responsibility regarding scheduling and follow up with semiconductor processing technician Last Documented On 1 1:52PM ; [facility] Education and Decision Aids were provided during visit for: STD screening offered and de clined Last Documented On 7 10:28AM ; [facility] Bone Mineral Density Screeni ng guidelines reviewed Last Documented On 7 10:28AM ; [facility] Patient Education: Daily page cium and vitamin D Last Documented On 7 10:28AM ; [facility] Patient Education: weight be aring exercise Last Documented On 7 10:28AM ; [facility] Colonoscopy screening guidel truong discussed Last Documented On 7 10:28AM ; [facility] STD screening offered and de clined Last Documented On 6 9:12AM ; [facility] Bone Mineral Density Screeni ng guidelines reviewed Last Documented On 6 9:12AM ; [facility] Patient Education: Daily page cium and vitamin D Last Documented On 6 9:12AM ; [facility] Patient Education: weight be aring exercise Last Documented On 6 9:12AM ; [facility] Colonoscopy screening guidel truong discussed Last Documented On 6 9:12AM ; [facility] STD screening offered and de clined Last Documented On 5 9:15AM ; [facility] Bone Mineral Density Screeni ng guidelines reviewed Last Documented On 5 9:15AM ; [facility] Patient Education: Daily page cium and vitamin D Last Documented On 5 9:15AM ; [facility] Patient Education: weight be aring exercise Last Documented On 5 9:15AM ; [facility] Colonoscopy screening guidel truong discussed Last Documented On 5 9:15AM ; [facility] STD screening offered and de clined Last Documented On 4 2:53PM ; [facility] Bone Mineral Density Screeni ng guidelines reviewed Last Documented On 4 2:53PM ; [facility] Patient Education: Daily page cium and vitamin D Last Documented On 4 2:53PM ; [facility] Patient Education: weight be aring exercise Last Documented On 4 2:53PM ; [facility] Colonoscopy screening guidel truong discussed Last Documented On 4 2:53PM ; [facility] STD screening offered and de clined Last Documented On 3 3:38PM ; [facility] Bone Mineral Density Screeni ng guidelines reviewed Last Documented On 3 3:38PM ; [facility] Patient Education: Daily page cium and vitamin D Last Documented On 3 3:38PM ; [facility] Patient Education: weight be aring exercise Last Documented On 3 3:38PM ; [facility] Colonoscopy screening guidel truong discussed Last Documented On 3 3:38PM ; [facility] Medical Equipment - Implanted Devices Includes: Current and historical Devices No Medical Equipment Recorded Medications Includes: Current and historical Medications Current Medications (continue as prescribed) Prolia 60MG/ML Subcutaneous Solution 02/16/2017 Prov ider: Diagnosis: Last Documented On 7 10:44AM By CARIDAD PEREZ ; [facility] BusPIRone HCl 5MG Oral Tablet 02/16/2017 Provider: Diagnosis: Last Documented On 7 10:23AM By ELISHA PEREZ ; [facility] Calcium + D 500-1000-40 MG-UNT-MCG Tablet Chewable Provider: Diagnosis: Last Documented On 12/05/2015 9:10AM By REBEKAH BELLA MA ; [facility] Exemestane 25 MG Tablet 08/23/2014 Provider: Diagnosis: Last Documented On 10/23/2014 9:12AM By MEGHANN PEREZ ; [facility] Zoloft 100 MG OR TABS 09/28/2013 Provider: Diagnosis: Last Documented On 09/28/2013 2:46PM By GER COLBY ; [facility] Zoloft 50 MG OR TABS 09/28/2013 Provider: Diagnosis: Last Documented On 09/28/2013 2:47PM By GER COLBY ; [facility] Digoxin 250 MCG OR TABS 09/20/2012 Provider: Diagnosis: takes for palpitations Last Documented On 3 3:14PM By CARLY FLORES LPN ; [facility] NexIUM 40 MG OR PACK 09/20/2012 Provider: Diagnosis: Last Documented On 3 3:14PM By CARLY FLORES LPN ; [facility] Past Medications on file Nitrofurantoin Macrocrystal 100 MG Capsule 02/08/2015 - 02/15/2015 Provider: MARC TORRES RN [facility] Diagnosis: HEMATURIA NOS 1 BID USE DIRECTED W/FOOD Last Documented On 5 11:09AM By MARC MORA- ; [facility] Terconazole 0.4% VA CREA 04/06/2013 - 04/13/2013 Provi ramila: ELIAS MCRAE MD Diagnosis: i applicatorful per vagina daily for 7 days Last Documented On 04/06/2013 1:23PM By ELIAS MCRAE MD ; [facility] Ondansetron HCl 8 MG OR TABS 04/06/2013 - 09/28/2013 Shahzad brewster: Diagnosis: Last Documented On 09/28/2013 2:48PM By GER COLBY ; [facility] Promethazine HCl 25 MG OR TABS 04/06/2013 - 09/28/2013 Provider: Diagnosis: Last Documented On 09/28/2013 2:48PM By GER COLBY ; [facility] Famciclovir 250 MG OR TABS 04/06/2013 - 09/28/2013 Pro vider: Diagnosis: Last Documented On 09/28/2013 2:47PM By GER COLBY ; [facility] Diphenoxylate-Atropine 2.5-0.025 MG OR TABS 04/06/2013 - 09/28/2013 Provider: Diagnosis: Last Documented On 09/28/2013 2:47PM By EGR COLBY ; [facility] dexAMETHasone 4 MG OR TABS 04/06/2013 - 09/28/2013 Pro vider: Diagnosis: Last Documented On 09/28/2013 2:47PM By GER COLBY ; [facility] Premarin 0.625 MG OR TABS 09/20/2012 - 11/15/2012 Prov ider: Diagnosis: takes one tab 3 times weekly Last Documented On 3 5:48PM By CARLY FLORES LPN ; [facility] Zoloft 100 MG OR TABS 09/20/2012 - 09/28/2013 Provider : Diagnosis: takes 150 mg daily Last Documented On 09/28/2013 2:46PM By GER COLBY ; [facility] Premarin 0.625 MG OR TABS 09/15/2011 - 09/09/2012 Prov ider: HEIDY ROBINS M.D. Diagnosis: Last Documented On 2 1:09PM By DR. HEIDY ROBINS ; [facility] MetroGel-Vaginal 0.75% VA GEL 03/02/2011 - 03/07/2011 Provider: Diagnosis: PHONED TO [facility] Last Documented On 1 10:57AM By CARLY FLORES LPN ; [facility] Flagyl 500 MG OR TABS 02/23/2011 - 03/02/2011 Provider : Diagnosis: PHONED TO BILL AT [facility] Last Documented On 1 11:03AM By CARLY FLORES LPN ; [facility] Temovate 0.05% EX CREA 02/18/2011 - 09/15/2011 Provider: HEIDY ROBINS M.D. Diagnosis: CIRCUMSCRIBE SCLERODERMA apply bid x 1 month, then qh s x 1 month, then twice weekly x 1 month, dispense quantity sufficient Last Documented On 2 1:04PM By DR. HEIDY ROBINS ; [facility] Premarin 0.625 MG OR TABS 09/09/2010 - 09/15/2011 Prov ider: HEIDY ROBINS M.D. Diagnosis: Last Documented On 2 1:09PM By DR. HEIDY ROBINS ; [facility] Sertraline HCl 20 MG/ML OR CONC 08/23/2010 - 3 Provider: Diagnosis: Last Documented On 3 3:14PM By CARLY FLORES LPN ; [facility] Cefuroxime Axetil 125 MG/5ML OR SUSR 07/29/2010 - 11/2012 Provider: Diagnosis: Last Documented On 3 3:15PM By CARLY FLORES LPN ; [facility] Lidoderm 5% EX PTCH 07/08/2010 - 09/28/2013 Provider: Diagnosis: Last Documented On 09/28/2013 2:47PM By GER COLBY ; [facility] NexIUM 10 MG OR PACK 06/19/2010 - 09/20/2012 Provider: Diagnosis: Last Documented On 3 3:14PM By CARLY FLORES LPN ; [facility] Digoxin POWD 05/20/2010 - 09/20/2012 Provider: Diagnosis: Last Documented On 3 3:13PM By CARLY FLORES LPN ; [facility] Premarin 0.625 MG OR TABS 08/27/2008 - 09/09/2010 Prov ider: Diagnosis: Last Documented On 1 2:01PM By DR. HEIDY ROBINS ; [facility] Medications Administered Includes: Administered Medications in patient's chart No Administered Medications Recorded Results Includes: Results from 08/27/2023 through 08/27/2024 No Results Recorded For Specified Dates History of Present Illness History of Present Illness not supported for this document type No History of Present Illness Recorded Social History Description Last Updated In monogamous relationship 02/16/2017 Last Documented On 7 11:40AM ; [facility] Sexually active 02/16/2017 Last Documented On 7 11:40AM ; [facility] Non-smoker 02/16/2017 Last Documented On 7 11:40AM ; [facility] Smoking status : Former smoker 7 Last Documented On 7 11:40AM ; [facility] Age of 1st intercourse was was 17 2014 Last Documented On 5 12:26PM ; [facility] Cigarette smoking 1 pack(s)/day 02/09/20 15 Last Documented On 5 12:26PM ; [facility] Current smoker 02/08/2015 Last Documented On 5 12:26PM ; [facility] Marital history 02/08/2015 Last Documented On 5 12:26PM ; [facility] Not using alcohol 02/08/2015 Last Documented On 5 12:26PM ; [facility] Not using drugs 02/08/2015 Last Documented On 5 12:26PM ; [facility] Sexually active with 1 partners in the l ast year 02/08/2015 Last Documented On 5 12:26PM ; [facility] Social history changed d/c'd smoking 3 w eeks ago--has been using patches 02/08/2015 Last Documented On 5 12:26PM ; [facility] Procedures and Surgical History Surgical History Last Updated History of hysterectomy 02/16/2017 Last Documented On 7 11:40AM ; [facility] Surgical / procedural history 12/05/2015 Last Documented On 6 9:26AM ; [facility] Surgical history unchanged 02/08/2015 Last Documented On 5 12:26PM ; [facility] History of cholecystectomy 09/20/2012 Last Documented On 3 4:13PM ; [facility] History of total abdominal hysterectomy 09/20/2012 Last Documented On 3 4:13PM ; [facility] History of tubal ligation 09/20/2012 Last Documented On 3 4:13PM ; [facility] Bilateral salpingo-oophorectomy 09/09/19 11 Last Documented On 1 2:01PM ; [facility] Breast Biopsy 09/09/2010 Last Documented On 1 2:01PM ; [facility] History of appendectomy 09/09/2010 Last Documented On 1 2:01PM ; [facility] No Dilation + Curettage 09/09/2010 Last Documented On 1 2:01PM ; [facility] No Ectopic surgery 09/09/2010 Last Documented On 1 2:01PM ; [facility] No Endometrial Ablation 09/09/2010 Last Documented On 1 2:01PM ; [facility] No history of Loop electrode excision of cervix (LEEP) 09/09/2010 Last Documented On 1 2:01PM ; [facility] No history of vaginal hysterectomy 09/09 Last Documented On 1 2:01PM ; [facility] No Laparoscopic Hysterectomy 09/09/2010 Last Documented On 1 2:01PM ; [facility] No Ovarian Cystectomy 09/09/2010 Last Documented On 1 2:01PM ; [facility] No Tonsillectomy 09/09/2010 Last Documented On 1 2:01PM ; [facility] Medical History Includes: Medical History in patient's chart Description Last Updated Last mammogram date: 09/201602/16/2017 Last Documented On 7 11:40AM ; [facility] Patient recently had a dexa scan 2015 [place] SH U 02/16/2017 Last Documented On 7 11:40AM ; [facility] Result: normal WASH U 02/16/2017 Last Documented On 7 11:40AM ; [facility] A colonoscopy was performed 2012 017 Last Documented On 7 11:40AM ; [facility] Contraception: hyst 02/16/2017 Last Documented On 7 11:40AM ; [facility] 2 02/16/2017 Last Documented On 7 11:40AM ; [facility] Last pap smear date 12/05/2015 02/16/2017 Last Documented On 7 11:40AM ; [facility] LMP: 1982 02/16/2017 Last Documented On 7 11:40AM ; [facility] Para 2 02/16/2017 Last Documented On 7 11:40AM ; [facility] Result: normal 12/05/2015 Last Documented On 6 9:26AM ; [facility] History of urinary tract infection 02/08 Last Documented On 5 12:26PM ; [facility] Result: abnormal Bx i nfiltrating carcinoma ~Scheduled for next mamm in 09/28/2013 Last Documented On 4 3:08PM ; [facility] No recent change in medical history 11/2012 Last Documented On 3 4:13PM ; [facility] History of menopause 09/20/2012 Last Documented On 3 4:13PM ; [facility] Status post tubal ligation 09/20/2012 Last Documented On 3 4:13PM ; [facility] Vaginal delivery 09/09/2010 Last Documented On 1 2:01PM ; [facility] History of anxiety disorder NOS 09/09/19 11 Last Documented On 1 2:01PM ; [facility] History of chronic reflux esophagitis Last Documented On 1 2:01PM ; [facility] History of depression 09/09/2010 Last Documented On 1 2:01PM ; [facility] History of prior myocardial infarction 0 09/09/2010 Last Documented On 1 2:01PM ; [facility] 2 living children 07/17/2009 Last Documented On 9 3:39PM ; [facility] depression, ~arthritis ~stomach issues ~ ~1976- [facility] ~appendectomy ~ 07/17/2009 Last Documented On 9 3:39PM ; [facility] Status post hysterectomy 07/17/2009 Last Documented On 9 3:39PM ; [facility] Family History Includes: Family History in patient's chart Description Last Updated Family history of malignant female breas t neoplasm Patient 02/08/2015 Last Documented On 5 12:26PM ; [facility] Family history of uterine cancer Patient 02/08/2015 Last Documented On 5 12:26PM ; [facility] Family history unchanged 02/08/2015 Last Documented On 5 12:26PM ; [facility] Family history of malignant neoplasm of the ovary Mother 09/28/2013 Last Documented On 4 3:08PM ; [facility] No family history of malignant neoplasm of the large intestine 09/28/2013 Last Documented On 4 3:08PM ; [facility] No family history of diabetes mellitus 0 04/06/2013 Last Documented On 3 1:27PM ; [facility] Spouse name: RANDY 09/09/2010 Last Documented On 1 2:01PM ; [facility] No family history of hypercholesterolemi a 09/09/2010 Last Documented On 1 2:01PM ; [facility] No family history of hypertension 2010 Last Documented On 1 2:01PM ; [facility] No heart disease 09/09/2010 Last Documented On 1 2:01PM ; [facility] Family history of Cancer ovarian 009 Last Documented On 9 3:39PM ; [facility] Review of Systems Review of Systems not [...] ent Last Documented On 1 1:53PM ; [facility] Influenza (Quadrivalent)36 m o.& older PF 0.5ml (SD) 1 Complete (Reported) Patient Last Documented On 1 1:53PM ; [facility] Influenza (Quadrivalent)36 m o.& older PF 0.5ml (SD) 2 Complete (Reported) Patient Last Documented On 2 1:04PM ; [facility] Td 1 Complete (Reported) Kavitha ent Last Documented On 1 1:53PM ; [facility] Allergies Includes: Active, inactive, and resolved Allergies Substance Type Reaction Onset Date Resolved Date Statu s Tetanus Toxoid Adsorbed Intolerance 07/17/2009 Active Last Documented On 7 10:23AM ; [facility] Sulfa Antibiotics Allergy 09/09/2010 A ctive Last Documented On 7 10:23AM ; [facility] Morphine Sulfate Allergy 02/16/2017 Ac tive Last Documented On 7 10:24AM ; [facility] Demerol Allergy 09/20/2012 Active Last Documented On 7 10:23AM ; [facility] Clinical Notes Includes: Signed Clinical Notes starting from 08/07/2022 No Clinical Notes Recorded
--- OUTSIDE RECORDS SUMMARY | 2024-08-27 12:49 | XMS_ITS | Encounter Summary ---
Author Organization [facility] Address [address] [place] [address] Phone Care Team Providers Care Linux System Administrator Name Role Phone Jarod Valladares MD Primary Care Provider [phone] Jyothi Tanner MD Unavailable Donald Shirley MD, Michael Shultz Unavailable [phone] Marcio Bello MD Unavailable [phone] Catherine Joshi MD Unavailable [phone] Alea Larson MA Unavailable [phone] Encounter Details Date Type Department Care Team (Late st Contact Info) Description 08/27/2017 Orders Only [facility] [address] [place] [address] Jarod Valladares MD [address] [place] [id number] Social History Tobacco Use Types Packs/Day Years Used Date Smoking Tobacco: Former Smokeless Tobacco: Never Comments Unknown Sex and Gender Information Value Date Recorded Sex Assigned at Not on file Legal Sex Female 1:44 AM [employer] [facility] Gender Identity Not on file Sexual Orientation Not on file documented as of this encounter Plan of Treatment Not on file documented as of this encounter Procedures Procedure Name Priority Date/Time Associated Diagnosis Comments CARDIOLOGY DOCUMENT SCAN 08/27/2017 9:55 AM C[facility] documented in this encounter Results * SCAN - CARDIOLOGY (08/27/2017 9:55 AM COOK MESS) Anatomical Region Laterality Modality Other Jarod Valladares MD CV CARDIAC SERVICES PROCED URES Final Result documented in this encounter Visit Diagnoses Not on filedocumented in this encounter Additional Health Concerns Infection Onset Date Last Indicated Resolved Time COVID: Suspected 10/26/2022 10/26/2022 10/26/2022 2:53 PM CDT documented as of this encounter Care Teams Linux System Administrator Relationship Specialty Start Date End Date Jarod Valladares MD [address] [place] [id number] PCP - General 10/16/16 Jyothi Tanner MD [address] [place] [address] [address] [place] [address] Referring Physician Medical Oncology 10/07/17 Michael Bennett Jr., MD [address] [place] [id number] Surgeon Orthopedic Surgery 10/07/17 Marcio Bello MD [address] [place] [id number] Consulting Physician Gastroenterology 10/07/17 Catherine Joshi MD [address] [place] [id number] Electronics Design Engineer Obstetrics and Gynecology 04/21/19 Alea Larson MA [address] [place] [address] [address] [place] [address] ACO Care Merchandising Professor 05/26/24 05/29/24 documented as of this encounter
--- OUTSIDE RECORDS SUMMARY | 2024-08-27 12:49 | XMS_ITS | Clinical Summary ---
Author Organization [facility] Address [address] [place] [address] Phone Care Team Providers Care Information Consultant Name Role Phone Unavailable Unavailable Unavailable Reason for Visit and Chief Complaint CANCELLED Problems Includes: Problems addressed during this encounter and other active Problems All Visits Onset Date Resolved Date Provider Condition S tatus Breast Cancer 09/28/2013 ELIAS MCRAE MD Active Last Documented On 09/28/2013 2:50PM ; [facility] Note: S/P L breast lumpectomy Cervical Cancer 09/20/2012 ELIAS Cruz MD Active Last Documented On 09/20/2012 4:12PM ; [facility] Note: At age 26, treated with hysterecto my Depressive Disorder NEC 09/20/2012 ELIAS MCRAE MD Active Last Documented On 09/20/2012 4:08PM ; [facility] Note: takes zoloft Osteoarthritis 09/20/2012 ELIAS MCRAE MD Active Last Documented On 09/20/2012 4:09PM ; [facility] Note: uses lidoderm patch PALPITATIONS 09/20/2012 ELIAS MCRAE MD Active Last Documented On 09/20/2012 4:10PM ; [facility] Note: takes digoxin REFLUX ESOPHAGITIS 09/20/2012 ELIAS HARE MD Active Last Documented On 09/20/2012 4:08PM ; [facility] Note: takes nexium Uterine Cancer 09/20/2012 ELIAS MCRAE MD Active Last Documented On 09/20/2012 4:13PM ; [facility] Note: At age 26, treated [...] On 7 10:44AM By CARIDAD PEREZ ; [facility] BusPIRone HCl 5MG Oral Tablet 02/16/2017 Provider: Diagnosis: Last Documented On 7 10:23AM By ELISHA PEREZ ; [facility] Calcium + D 500-1000-40 MG-UNT-MCG Tablet Chewable Provider: Diagnosis: Last Documented On 12/05/2015 9:10AM By REBEKAH BELLA MA ; [facility] Exemestane 25 MG Tablet 08/23/2014 Provider: Diagnosis: Last Documented On 10/23/2014 9:12AM By MEGHANN PEREZ ; [facility] Zoloft 100 MG OR TABS 09/28/2013 Provider: Diagnosis: Last Documented On 09/28/2013 2:46PM By GER COLBY ; [facility] Zoloft 50 MG OR TABS 09/28/2013 Provider: Diagnosis: Last Documented On 09/28/2013 2:47PM By GER COLBY ; [facility] Digoxin 250 MCG OR TABS 09/20/2012 Provider: Diagnosis: takes for palpitations Last Documented On 3 3:14PM By CARLY FLORES LPN ; [facility] NexIUM 40 MG OR PACK 09/20/2012 Provider: Diagnosis: Last Documented On 3 3:14PM By CARLY FLORES LPN ; [facility] Medications Administered Includes: Administered Medications [...] Active Last Documented On 7 10:23AM ; [facility] Sulfa Antibiotics Allergy 09/09/2010 A ctive Last Documented On 7 10:23AM ; [facility] Morphine Sulfate Allergy 02/16/2017 Ac tive Last Documented On 7 10:24AM ; [facility] Demerol Allergy 09/20/2012 Active Last Documented On 7 10:23AM ; [facility] Encounters Encounter Provider Location Date Check-In Time Check-Out Time Diagnosis CANCELLED ELIAS MCRAE MD [facility] BANDER OPERATOR 06/18/2014 11:00AM 11:59PM Clinical Notes Includes: Clinical Notes from this encounter No Clinical Notes Recorded
--- OUTSIDE RECORDS SUMMARY | 2024-08-27 12:49 | XMS_ITS | Clinical Summary ---
Author Organization [facility] Address [address] [place] [address] Phone Care Team Providers Care Scrap Kettle Tender Name Role Phone Unavailable Unavailable Unavailable Reason for Visit and Chief Complaint The Chief Complaint is: annual Problems Includes: Problems addressed during this encounter and other active Problems All Visits Onset Date Resolved Date Provider Condition S tatus Breast Cancer 09/28/2013 ELIAS MCRAE MD Active Last Documented On 09/28/2013 2:50PM ; [facility] Note: S/P L breast lumpectomy Cervical Cancer 09/20/2012 ELIAS Cruz MD Active Last Documented On 09/20/2012 4:12PM ; [facility] Note: At age 26, treated with hysterecto my Depressive Disorder NEC 09/20/2012 ELIAS MCRAE MD Active Last Documented On 09/20/2012 4:08PM ; [facility] Note: takes zoloft Osteoarthritis 09/20/2012 ELIAS MCRAE MD Active Last Documented On 09/20/2012 4:09PM ; [facility] Note: uses lidoderm patch PALPITATIONS 09/20/2012 ELIAS MCRAE MD Active Last Documented On 09/20/2012 4:10PM ; [facility] Note: takes digoxin REFLUX ESOPHAGITIS 09/20/2012 ELIAS HARE MD Active Last Documented On 09/20/2012 4:08PM ; [facility] Note: takes nexium Uterine Cancer 09/20/2012 ELIAS MCRAE MD Active Last Documented On 09/20/2012 4:13PM ; [facility] Note: At age 26, treated with hysterecto my Plan of Treatment She follows with breast specialist and has mammogram and appt. scheduled in November, and she also sees oncology Q3 months at [facility] [place] for h/o breast cancer We discussed pap guidelines and she agreed not to have pap today. 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 - Last Documented On 10/23/2014 9:28AM ; [facility] Pending Tests Order Diagnosis Results Due Ordering Shahzad brewster In office procedures - *Clia Waived Labs *FIT Test (Fecal Occult Test) SCREEN MAL NEOP-RECTUM 11/06/14 ELIAS MCRAE MD Last Documented On 5 3:12PM ; [facility] Instructions to patient Instructions for patient : B reast Self Exam discussed Last Documented On 5 9:15AM ; [facility] Education and Decision Aids were provided during visit for: STD screening offered and de clined Last Documented On 5 9:15AM ; [facility] Bone Mineral Density Screeni ng guidelines reviewed Last Documented On 5 9:15AM ; [facility] Patient Education: Daily page cium and vitamin D Last Documented On 5 9:15AM ; [facility] Patient Education: weight be aring exercise Last Documented On 5 9:15AM ; [facility] Colonoscopy screening guidel truong discussed Last Documented On 5 9:15AM ; [facility] Assessments Includes: Assessments from this encounter Findings - Routine pelvic exam - Last Documented On 10/23/2014 9:28AM ; [facility] - Screening Malig. Neoplasm Rectum - Last Documented On 10/23/2014 9:28AM ; [facility] Instructions Includes: Instructions from this encounter Instructions to patient Instructions for patient : B reast Self Exam discussed Last Documented On 5 9:15AM ; [facility] Education and Decision Aids were provided during visit for: STD screening offered and de clined Last Documented On 5 9:15AM ; [facility] Bone Mineral Density Screeni ng guidelines reviewed Last Documented On 5 9:15AM ; [facility] Patient Education: Daily page cium and vitamin D Last Documented On 5 9:15AM ; [facility] Patient Education: weight be aring exercise Last Documented On 5 9:15AM ; [facility] Colonoscopy screening guidel truong discussed Last Documented On 5 9:15AM ; [facility] Medical Equipment - Implanted Devices Includes: Current Devices No Medical Equipment Recorded Medications Includes: Medications discussed during this encounter and other current Medications Current Medications (continue as prescribed) Prolia 60MG/ML Subcutaneous Solution 02/16/2017 Prov ider: Diagnosis: Last Documented On 7 10:44AM By CARIDAD HERNANDEZ Lul ; [facility] BusPIRone HCl 5MG Oral Tablet 02/16/2017 Provider: Diagnosis: Last Documented On 7 10:23AM By ELISHA DAVIDSON Lul ; [facility] Calcium + D 500-1000-40 MG-UNT-MCG Tablet Chewable Provider: Diagnosis: Last Documented On 12/05/2015 9:10AM By REBEKAH BELLA MA ; [facility] Exemestane 25 MG Tablet 08/23/2014 Provider: Diagnosis: Last Documented On 10/23/2014 9:12AM By MEGHANN MONTES Lul ; [facility] Zoloft 100 MG OR TABS 09/28/2013 Provider: Diagnosis: Last Documented On 09/28/2013 2:46PM By GER COLBY ; [facility] Zoloft 50 MG OR TABS 09/28/2013 Provider: Diagnosis: Last Documented On 09/28/2013 2:47PM By GER COLBY ; [facility] Digoxin 250 MCG OR TABS 09/20/2012 Provider: Diagnosis: takes for palpitations Last Documented On 3 3:14PM By CARLY FLORES LPN ; [facility] NexIUM 40 MG OR PACK 09/20/2012 Provider: Diagnosis: Last Documented On 3 3:14PM By CARLY FLORES LPN ; [facility] Past Medications on file Nitrofurantoin Macrocrystal 100 MG Capsule 02/08/2015 - 02/15/2015 Provider: MARC SANCHEZ Diagnosis: HEMATURIA NOS 1 BID USE DIRECTED W/FOOD Last Documented On 5 11:09AM By MARC MORA-BC ; [facility] Terconazole 0.4% VA CREA 04/06/2013 - 04/13/2013 Provi ramila: ELIAS MCRAE MD Diagnosis: i applicatorful per vagina daily for 7 days Last Documented On 04/06/2013 1:23PM By ELIAS MCRAE MD ; [facility] Premarin 0.625 MG OR TABS 09/15/2011 - 09/09/2012 Prov ider: HEIDY ROBINS M.D. Diagnosis: Last Documented On 2 1:09PM By DR. HEIDY ROBINS ; [facility] MetroGel-Vaginal 0.75% VA GEL 03/02/2011 - 03/07/2011 Provider: Diagnosis: PHONED TO [address] [facility] Last Documented On 1 10:57AM By CARLY FLORES LPN ; [facility] Flagyl 500 MG OR TABS 02/23/2011 - 03/02/2011 Provider : Diagnosis: PHONED TO BILL AT [address] [place] Last Documented On 1 11:03AM By CARLY FLORES LPN ; [facility] Medications Administered Includes: Administered Medications from this encounter No Administered Medications Recorded Vital Signs Includes: Vital Signs from this encounter Vital Name 10/23/2014 09:03A Blood Pressure Sitting (mmHg) 124/82 Pulse Rate-Sitting (bpm) 64 Height (in) 65.5 Weight (lb) 144 Body Mass Index (kg/m2) 23.6 Body Surface Area (m2) 1.7 Last Documented: On 10/23/2014 9:10AM ; [facility] Results Includes: Results discussed during this encounter No Results Recorded For Specified Dates History of Present Illness Includes: History of Present Illness from this encounter LACIE GUPTA is a 64 year old female. - No unusual bleeding. - No pelvic pain - No vaginal discharge Social History Description Last Updated In monogamous relationship 10/23/2014 Last Documented On 5 9:28AM ; [facility] Smoking status : Former smoker 5 Last Documented On 5 9:28AM ; [facility] Procedures and Surgical History Includes: Procedures from this encounter Procedures Code Diagnosis Performing Provider Service L ocation Service Date Clinical summary provided to patient Last Documented On 5 9:15AM ; [facility] a fecal occult blood test was negative 06162 Last Documented On 5 9:15AM ; [facility] Surgical History Last Updated History of hysterectomy JOHN 02/16/2017 Last Documented On 5 9:03AM ; [facility] Surgical / procedural histor y R knee surgery ~R thumb surgery ~L breast lumpectomy ~hernia surgery september 2013 10/23/2014 Last Documented On 5 9:28AM ; [facility] History of cholecystectomy 09/20/2012 Last Documented On 5 9:03AM ; [facility] History of tubal ligation 09/20/2012 Last Documented On 5 9:03AM ; [facility] Bilateral salpingo-oophorectomy 09/09/19 11 Last Documented On 5 9:03AM ; [facility] Breast Biopsy 09/09/2010 Last Documented On 5 9:03AM ; [facility] History of appendectomy 09/09/2010 Last Documented On 5 9:03AM ; [facility] Medical History Includes: Medical History addressed during this encounter Description Last Updated Last mammogram date: 11/201310/23/2014 Last Documented On 5 9:28AM ; [facility] Result: normal 10/23/2014 Last Documented On 5 9:28AM ; [facility] A colonoscopy was performed 2012 015 Last Documented On 5 9:28AM ; [facility] 2 10/23/2014 Last Documented On 5 9:28AM ; [facility] Last pap smear date 09/20/2012 10/23/2014 Last Documented On 5 9:28AM ; [facility] Para 2 10/23/2014 Last Documented On 5 9:28AM ; [facility] Patient recently had a dexa scan osteopenia 10/23/2014 Last Documented On 5 9:28AM ; [facility] Result: normal 10/23/2014 Last Documented On 5 9:28AM ; [facility] Family History Includes: Family History addressed during [...] Active Last Documented On 7 10:23AM ; [facility] Sulfa Antibiotics Allergy 09/09/2010 A ctive Last Documented On 7 10:23AM ; [facility] Morphine Sulfate Allergy 02/16/2017 Ac tive Last Documented On 7 10:24AM ; [facility] Demerol Allergy 09/20/2012 Active Last Documented On 7 10:23AM ; [facility] Encounters Encounter Provider Location Date Check-In Time Check-Out Time Diagnosis SALON RECEPTIONIST EXAM ELIAS MCRAE MD [facility] NUTRITION SERVICES ASSISTANT 5 9:00AM 9:27AM Routine Pelvic Exam,Hoa Hogan. Neoplasm Rectum Clinical Notes Includes: Clinical Notes from this encounter No Clinical Notes Recorded
--- OUTSIDE RECORDS SUMMARY | 2024-08-27 12:49 | XMS_ITS | Clinical Summary ---
Author Organization [facility] Address [address] [place] [address] Phone Care Team Providers Care Manager Pet Name Role Phone Unavailable Unavailable Unavailable Reason [...] Active Last Documented On 09/28/2013 2:50PM ; [facility] Note: S/P L breast lumpectomy Cervical Cancer 09/20/2012 ELIAS Cruz MD Active Last Documented On 09/20/2012 4:12PM ; [facility] Note: At age 26, treated with hysterecto my Depressive Disorder NEC 09/20/2012 ELIAS MCRAE MD Active Last Documented On 09/20/2012 4:08PM ; [facility] Note: takes zoloft Osteoarthritis 09/20/2012 ELIAS MCRAE MD Active Last Documented On 09/20/2012 4:09PM ; [facility] Note: uses lidoderm patch PALPITATIONS 09/20/2012 ELIAS MCRAE MD Active Last Documented On 09/20/2012 4:10PM ; [facility] Note: takes digoxin REFLUX ESOPHAGITIS 09/20/2012 ELIAS HARE MD Active Last Documented On 09/20/2012 4:08PM ; [facility] Note: takes nexium Uterine Cancer 09/20/2012 ELIAS MCRAE MD Active Last Documented On 09/20/2012 4:13PM ; [facility] Note: At age 26, treated with hysterecto my Plan of Treatment - Clinical summary provided to patient - Last Documented On 02/08/2015 12:26PM ; [facility] HANDOUT GIVEN ON PELVIC FLOOR DISORDERS AND DISCUSSED USE OF PESSARY VS SURGERY. PT DECLINES PESSARY FITTING ND WILL TAKE UROLOGY REFERRAL - Last Documented On 02/08/2015 12:26PM ; [facility] Referrals To Diagnosis Urologist ALEKSANDER ZEPEDA Note: GRADE 2 CYSTOCELE PLEA SE EVALUATE Last Documented On 6 2:39PM ; [facility] Assessments Includes: Assessments from this encounter Findings - Hematuria - Last Documented On 02/08/2015 12:26PM ; [facility] - Vaginal wall prolapse with midline cystocele - Last Documented On 02/08/2015 12:26PM ; [facility] Medical Equipment - Implanted Devices Includes: Current Devices No Medical Equipment Recorded Medications Includes: Medications discussed during this encounter and other current Medications New / Renewed during this visit MARC TORRES RN [facility] on 02/08/2015 Nitrofurantoin Macrocrystal 100 MG Capsule Provider: MARC MORA BC 7 day supply: 14 capsule, 0 refills Diagnosis: HEMATURIA NOS 1 BID USE DIRECTED W/FOOD Pharmacy: [facility] [address] Last Documented On 5 11:09AM By MARC MUÑOZ ; [facility] Current Medications (continue as prescribed) Prolia 60MG/ML Subcutaneous Solution 02/16/2017 Prov ider: Diagnosis: Last Documented On 7 10:44AM By CARIDAD PEREZ ; [facility] BusPIRone HCl 5MG Oral Tablet 02/16/2017 Provider: Diagnosis: Last Documented On 7 10:23AM By ELISHA PEREZ ; [facility] Calcium + D 500-1000-40 MG-UNT-MCG Tablet Chewable Provider: Diagnosis: Last Documented On 12/05/2015 9:10AM By REBEKAH BELLA MA ; [facility] Exemestane 25 MG Tablet 08/23/2014 Provider: Diagnosis: Last Documented On 10/23/2014 9:12AM By MEGHANN PEREZ ; [facility] Zoloft 100 MG OR TABS 09/28/2013 Provider: Diagnosis: Last Documented On 09/28/2013 2:46PM By GER COLBY ; [facility] Zoloft 50 MG OR TABS 09/28/2013 Provider: Diagnosis: Last Documented On 09/28/2013 2:47PM By GER COLBY ; [facility] Digoxin 250 MCG OR TABS 09/20/2012 Provider: Diagnosis: takes for palpitations Last Documented On 3 3:14PM By CARLY FLORES LPN ; [facility] NexIUM 40 MG OR PACK 09/20/2012 Provider: Diagnosis: Last Documented On 3 3:14PM By CARLY FLORES LPN ; [facility] Past Medications on file Terconazole 0.4% VA CREA 04/06/2013 - 04/13/2013 Provi ramila: ELIAS MCRAE MD Diagnosis: i applicatorful per vagina daily for 7 days Last Documented On 04/06/2013 1:23PM By ELIAS MCRAE MD ; [facility] Premarin 0.625 MG OR TABS 09/15/2011 - 09/09/2012 Prov ider: HEIDY ROBINS M.D. Diagnosis: Last Documented On 2 1:09PM By DR. HEIDY ROBINS ; [facility] MetroGel-Vaginal 0.75% VA GEL 03/02/2011 - 03/07/2011 Provider: Diagnosis: PHONED TO [employer] Last Documented On 1 10:57AM By CARLY FLORES LPN ; [facility] Flagyl 500 MG OR TABS 02/23/2011 - 03/02/2011 Provider : Diagnosis: PHONED TO BILL AT [employer] [facility] Last Documented On 1 11:03AM By CARLY FLORES LPN ; [facility] Medications Administered Includes: Administered Medications from this encounter No Administered Medications Recorded Vital Signs Includes: Vital Signs from this encounter Vital Name 02/08/2015 10:46A 02/08/2015 10: 41A Blood Pressure Sitting (mmHg) 142/84 Weight (lb) 144 Height (in) 65.5 Last Documented: On 02/08/2015 10:48A M ; [facility] On 02/08/2015 10:42AM ; [facility] Results Includes: Results discussed during this encounter Urinalysis Manual Lab Entry Ordered by MARC TORRES RN [facility] on 0 02/08/2015 Collected: Reported: 02/08/2015 11:10 Last Documented On 5 11:10AM ; [facility] Reviewed on 02/08/2015; All test results are final unless otherwise noted. color (Straw-yellow) N (Normal) Last Documented On 5 11:10AM ; [facility] clarity (clear) N (Normal) Last Documented On 5 11:10AM ; [facility] Glucose (70-150mg/dL) N (Normal) Last Documented On 11:10AM ; [facility] Bilirubin N (Normal) Last Documented On 11:10AM ; [facility] Ketone N (Normal) Last Documented On 5 11:10AM ; [facility] SP [place] (1.003-1.040) N (Normal) Last Documented On 11:10AM ; [facility] pH (5.00-9.00) N (Normal) Last Documented On 5 11:10AM ; [facility] Protein N (Normal) Last Documented On 11:10AM ; [facility] Urobilinogen 1 (0.2-1.0 EU/dL) A (Abnormal) Last Documented On 5 11:10AM ; [facility] Nitrate N (Normal) Last Documented On 11:10AM ; [facility] Blood 50 A (Abnormal) Last Documented On 5 11:10AM ; [facility] Leukocyte 25 A (Abnormal) Last Documented On 11:10AM ; [facility] History of Present Illness Includes: History [...] 15 Last Documented On 5 12:26PM ; [facility] Current smoker 02/08/2015 Last Documented On 5 12:26PM ; [facility] In monogamous relationship 02/08/2015 Last Documented On 5 12:26PM ; [facility] Marital history 02/08/2015 Last Documented On 5 12:26PM ; [facility] Non-smoker 02/08/2015 Last Documented On 5 12:26PM ; [facility] Not using alcohol 02/08/2015 Last Documented On 5 12:26PM ; [facility] Not using drugs 02/08/2015 Last Documented On 5 12:26PM ; [facility] Sexually active 02/08/2015 Last Documented On 5 12:26PM ; [facility] Sexually active with 1 partners in the l ast year 02/08/2015 Last Documented On 5 12:26PM ; [facility] Smoking status : Never smoker 02/08/2015 Last Documented On 5 12:26PM ; [facility] Social history changed d/c'd smoking 3 w eeks ago--has been using patches 02/08/2015 Last Documented On 5 12:26PM ; [facility] Social history unchanged 02/08/2015 Last Documented On 5 12:26PM ; [facility] Procedures and Surgical History Includes: Procedures from this encounter Procedures Code Diagnosis Performing Provider Service L ocation Service Date urinalysis was performed 22049 Last Documented On 5 12:17PM ; [facility] Surgical History Last Updated History of hysterectomy [facility] 02/16/2017 Last Documented On 5 10:41AM ; [facility] Surgical / procedural histor y R knee surgery ~R thumb surgery ~L breast lumpectomy ~hernia surgery september 2013 12/05/2015 Last Documented On 5 10:41AM ; [facility] Surgical history unchanged 02/08/2015 Last Documented On 5 12:26PM ; [facility] History of cholecystectomy 09/20/2012 Last Documented On 5 10:41AM ; [facility] History of total abdominal hysterectomy 09/20/2012 Last Documented On 5 10:41AM ; [facility] History of tubal ligation 09/20/2012 Last Documented On 5 10:41AM ; [facility] Bilateral salpingo-oophorectomy 09/09/19 11 Last Documented On 5 10:41AM ; [facility] Breast Biopsy 09/09/2010 Last Documented On 5 10:41AM ; [facility] History of appendectomy 09/09/2010 Last Documented On 5 10:41AM ; [facility] Medical History Includes: Medical History addressed during this encounter Description Last Updated Last mammogram date: 11/201302/16/2017 Last Documented On 5 10:41AM ; [facility] Patient recently had a dexa scan osteopenia 02/16/2017 Last Documented On 5 10:41AM ; [facility] Result: normal 02/16/2017 Last Documented On 5 10:41AM ; [facility] A colonoscopy was performed 2012 017 Last Documented On 5 10:41AM ; [facility] 2 02/16/2017 Last Documented On 5 10:41AM ; [facility] Last pap smear date 09/20/2012 02/16/2017 Last Documented On 5 10:41AM ; [facility] LMP: 1982 02/16/2017 Last Documented On 5 10:41AM ; [facility] Para 2 02/16/2017 Last Documented On 5 10:41AM ; [facility] Result: normal 12/05/2015 Last Documented On 5 10:41AM ; [facility] History of urinary tract infection 02/08 Last Documented On 5 12:26PM ; [facility] Result: abnormal Bx i nfiltrating carcinoma ~Scheduled for next mamm in 09/28/2013 Last Documented On 5 10:41AM ; [facility] No recent change in medical history 11/2012 Last Documented On 5 10:41AM ; [facility] History of menopause 09/20/2012 Last Documented On 5 10:41AM ; [facility] Status post tubal ligation 09/20/2012 Last Documented On 5 10:41AM ; [facility] Vaginal delivery 09/09/2010 Last Documented On 5 10:41AM ; [facility] History of anxiety disorder NOS 09/09/19 11 Last Documented On 5 10:41AM ; [facility] History of chronic reflux esophagitis Last Documented On 5 10:41AM ; [facility] History of depression 09/09/2010 Last Documented On 5 10:41AM ; [facility] History of prior myocardial infarction 0 09/09/2010 Last Documented On 5 10:41AM ; [facility] 2 living children 07/17/2009 Last Documented On 5 10:41AM ; [facility] depression, ~arthritis ~stomach issues ~ ~1976- [facility] ~appendectomy ~ 07/17/2009 Last Documented On 5 10:41AM ; [facility] Status post hysterectomy 07/17/2009 Last Documented On 5 10:41AM ; [facility] Family History Includes: Family History addressed during this encounter Description Last Updated Family history of malignant female breas t neoplasm Patient 02/08/2015 Last Documented On 5 12:26PM ; [facility] Family history of uterine cancer Patient 02/08/2015 Last Documented On 5 12:26PM ; [facility] Family history unchanged 02/08/2015 Last Documented On 5 12:26PM ; [facility] Review of Systems Includes: Review of [...] Active Last Documented On 7 10:23AM ; [facility] Sulfa Antibiotics Allergy 09/09/2010 A ctive Last Documented On 7 10:23AM ; [facility] Morphine Sulfate Allergy 02/16/2017 Ac tive Last Documented On 7 10:24AM ; [facility] Demerol Allergy 09/20/2012 Active Last Documented On 7 10:23AM ; [facility] Encounters Encounter Provider Location Date Check-In Time Check-Out Time Diagnosis PROBLEM VISIT MARC TORRES RN [facility]NP [facility] [employer] 02/09/20 15 10:39AM 11:09AM Vaginal Wall Prolapse Cystocele, Midline,Hemat uria Clinical Notes Includes: Clinical Notes from this encounter No Clinical Notes Recorded
--- OUTSIDE RECORDS SUMMARY | 2024-08-27 12:50 | XMS_ITS | Clinical Summary ---
Author Organization [facility] Address [address] [place] [address] Phone Care Team Providers Care Cash Specialist Name Role Phone Unavailable Unavailable Unavailable Reason for Visit and Chief Complaint The Chief Complaint is: Annual exam Problems Includes: Problems addressed during this encounter and other active Problems All Visits Onset Date Resolved Date Provider Condition S tatus Breast Cancer 09/28/2013 ELIAS MCRAE MD Active Last Documented On 09/28/2013 2:50PM ; [facility] Note: S/P L breast lumpectomy Cervical Cancer 09/20/2012 ELIAS Cruz MD Active Last Documented On 09/20/2012 4:12PM ; [facility] Note: At age 26, treated with hysterecto my Depressive Disorder NEC 09/20/2012 ELIAS MCRAE MD Active Last Documented On 09/20/2012 4:08PM ; [facility] Note: takes zoloft Osteoarthritis 09/20/2012 ELIAS MCRAE MD Active Last Documented On 09/20/2012 4:09PM ; [facility] Note: uses lidoderm patch PALPITATIONS 09/20/2012 ELIAS MCRAE MD Active Last Documented On 09/20/2012 4:10PM ; [facility] Note: takes digoxin REFLUX ESOPHAGITIS 09/20/2012 ELIAS HARE MD Active Last Documented On 09/20/2012 4:08PM ; [facility] Note: takes nexium Uterine Cancer 09/20/2012 ELIAS MCRAE MD Active Last Documented On 09/20/2012 4:13PM ; [facility] Note: At age 26, treated with hysterecto my Plan of Treatment No pap done today, hysterectomy was done due to CIS of cervix and uterine cancer so we may still do periodic pap but she agrees not to do it yearly at this point She still sees breast specialist or oncologist at [facility] due to h/o breast cancer. I have no notes from past couple years, so we'll request those and recent imaging (had mammogram this spring and says she's supposed to be having breast MRI soon) She reports being on Prolia, calcium, and vit D for bone density being managed by her PCP - Last Documented On 02/16/2017 11:40AM ; [facility] Instructions to patient Instructions for patient : B reast Self Exam discussed Last Documented On 7 10:28AM ; [facility] Education and Decision Aids were provided during visit for: STD screening offered and de clined Last Documented On 7 10:28AM ; [facility] Bone Mineral Density Screeni ng guidelines reviewed Last Documented On 7 10:28AM ; [facility] Patient Education: Daily page cium and vitamin D Last Documented On 7 10:28AM ; [facility] Patient Education: weight be aring exercise Last Documented On 7 10:28AM ; [facility] Colonoscopy screening guidel truong discussed Last Documented On 7 10:28AM ; [facility] Assessments Includes: Assessments from this encounter Findings - Routine pelvic exam - Last Documented On 02/16/2017 11:40AM ; [facility] - Screening Malig. Neoplasm Rectum - Last Documented On 02/16/2017 11:40AM ; [facility] Instructions Includes: Instructions from this encounter Instructions to patient Instructions for patient : B reast Self Exam discussed Last Documented On 7 10:28AM ; [facility] Education and Decision Aids were provided during visit for: STD screening offered and de clined Last Documented On 7 10:28AM ; [facility] Bone Mineral Density Screeni ng guidelines reviewed Last Documented On 7 10:28AM ; [facility] Patient Education: Daily page cium and vitamin D Last Documented On 7 10:28AM ; [facility] Patient Education: weight be aring exercise Last Documented On 7 10:28AM ; [facility] Colonoscopy screening guidel truong discussed Last Documented On 7 10:28AM ; [facility] Medical Equipment - Implanted Devices Includes: Current Devices No Medical Equipment Recorded Medications Includes: Medications discussed during this encounter and other current Medications Current Medications (continue as prescribed) Prolia 60MG/ML Subcutaneous Solution 02/16/2017 Prov ider: Diagnosis: Last Documented On 7 10:44AM By CARIDAD HERNANDEZ Lul ; [facility] BusPIRone HCl 5MG Oral Tablet 02/16/2017 Provider: Diagnosis: Last Documented On 7 10:23AM By ELISHA DAVIDSON Lul ; [facility] Calcium + D 500-1000-40 MG-UNT-MCG Tablet Chewable Provider: Diagnosis: Last Documented On 12/05/2015 9:10AM By REBEKAH BELLA MA ; [facility] Exemestane 25 MG Tablet 08/23/2014 Provider: Diagnosis: Last Documented On 10/23/2014 9:12AM By MEGHANN MONTES Lul ; [facility] Zoloft 100 MG OR TABS 09/28/2013 Provider: Diagnosis: Last Documented On 09/28/2013 2:46PM By GER COLBY ; [facility] Zoloft 50 MG OR TABS 09/28/2013 Provider: Diagnosis: Last Documented On 09/28/2013 2:47PM By GER COLBY ; [facility] Digoxin 250 MCG OR TABS 09/20/2012 Provider: Diagnosis: takes for palpitations Last Documented On 3 3:14PM By CARLY FLORES LPN ; [facility] NexIUM 40 MG OR PACK 09/20/2012 Provider: Diagnosis: Last Documented On 3 3:14PM By CARLY FLORES LPN ; [facility] Past Medications on file Nitrofurantoin Macrocrystal 100 MG Capsule 02/08/2015 - 02/15/2015 Provider: MARC MORA BC Diagnosis: HEMATURIA NOS 1 BID USE DIRECTED W/FOOD Last Documented On 5 11:09AM By MARC MORA-BC ; [facility] Terconazole 0.4% [place] CREA 04/06/2013 - 04/13/2013 Provi ramila: ELIAS MCRAE MD Diagnosis: i applicatorful per vagina daily for 7 days Last Documented On 04/06/2013 1:23PM By ELIAS MCRAE MD ; [facility] Premarin 0.625 MG OR TABS 09/15/2011 - 09/09/2012 Prov ider: HEIDY ROBINS M.D. Diagnosis: Last Documented On 2 1:09PM By DR. HEIDY ROBINS ; [facility] MetroGel-Vaginal 0.75% [place] GEL 03/02/2011 - 03/07/2011 Provider: Diagnosis: PHONED TO [employer] Last Documented On 1 10:57AM By CARLY FLORES LPN ; [facility] Flagyl 500 MG OR TABS 02/23/2011 - 03/02/2011 Provider : Diagnosis: PHONED TO BILL AT [facility] Last Documented On 1 11:03AM By CARLY FLORES LPN ; [facility] Medications Administered Includes: Administered Medications from this encounter No Administered Medications Recorded Vital Signs Includes: Vital Signs from this encounter Vital Name 02/16/2017 10:18A Blood Pressure Sitting (mmHg) 136/68 Pulse Rate-Sitting (bpm) 80 Height (in) 65.5 Weight (lb) 141 Body Mass Index (kg/m2) 23.1 Body Surface Area (m2) 1.7 Last Documented: On 02/16/2017 10:26A M ; [facility] Results Includes: Results discussed during this encounter No Results Recorded For Specified Dates History of Present Illness Includes: History of Present Illness from this encounter LACIE GUPTA is a 66 year old female. - Medication list reviewed. - No unusual bleeding. - No pelvic pain. - No vaginal discharge. Social History Description Last Updated In monogamous relationship 02/16/2017 Last Documented On 7 11:40AM ; [facility] Sexually active 02/16/2017 Last Documented On 7 11:40AM ; [facility] Non-smoker 02/16/2017 Last Documented On 7 11:40AM ; [facility] Smoking status : Former smoker 7 Last Documented On 7 11:40AM ; [facility] Procedures and Surgical History Includes: Procedures from this encounter Procedures Code Diagnosis Performing Provider Service L ocation Service Date Clinical summary provided to patient Last Documented On 7 10:28AM ; [facility] fecal occult blood test was negative 14031 Last Documented On 7 10:28AM ; [facility] Surgical History Last Updated History of hysterectomy 02/16/2017 Last Documented On 7 11:40AM ; [facility] Medical History Includes: Medical History addressed during this encounter Description Last Updated Last mammogram date: 09/201602/16/2017 Last Documented On 7 11:40AM ; [facility] Patient recently had a dexa scan 2015 [place] SH U 02/16/2017 Last Documented On 7 11:40AM ; [facility] Result: normal WASH U 02/16/2017 Last Documented On 7 11:40AM ; [facility] A colonoscopy was performed 2012 017 Last Documented On 7 11:40AM ; [facility] Contraception: hyst 02/16/2017 Last Documented On 7 11:40AM ; [facility] 2 02/16/2017 Last Documented On 7 11:40AM ; [facility] Last pap smear date 12/05/2015 02/16/2017 Last Documented On 7 11:40AM ; [facility] LMP: 1982 02/16/2017 Last Documented On 7 11:40AM ; [facility] Para 2 02/16/2017 Last Documented On 7 11:40AM ; [facility] Family History Includes: Family History addressed during this encounter Description Last Updated Family history of malignant female breas t neoplasm Patient 02/08/2015 Last Documented On 7 10:15AM ; [facility] Family history of uterine cancer Patient 02/08/2015 Last Documented On 7 10:15AM ; [facility] Family history unchanged 02/08/2015 Last Documented On 7 10:15AM ; [facility] Family history of malignant neoplasm of the ovary Mother 09/28/2013 Last Documented On 7 10:15AM ; [facility] No family history of malignant neoplasm of the large intestine 09/28/2013 Last Documented On 7 10:15AM ; [facility] No family history of diabetes mellitus 0 04/06/2013 Last Documented On 7 10:15AM ; [facility] Spouse name: RANDY 09/09/2010 Last Documented On 7 10:15AM ; [facility] No family history of hypercholesterolemi a 09/09/2010 Last Documented On 7 10:15AM ; [facility] No family history of hypertension 2010 Last Documented On 7 10:15AM ; [facility] No heart disease 09/09/2010 Last Documented On 7 10:15AM ; [facility] Family history of Cancer ovarian 009 Last Documented On 7 10:15AM ; [facility] Review of Systems Includes: Review of Systems [...] Active Last Documented On 7 10:23AM ; [facility] Sulfa Antibiotics Allergy 09/09/2010 A ctive Last Documented On 7 10:23AM ; [facility] Morphine Sulfate Allergy 02/16/2017 Ac tive Last Documented On 7 10:24AM ; [facility] Demerol Allergy 09/20/2012 Active Last Documented On 7 10:23AM ; [facility] Encounters Encounter Provider Location Date Check-In Time Check-Out Time Diagnosis 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 Neoplasm Rectum Clinical Notes Includes: Clinical Notes from this encounter No Clinical Notes Recorded
--- OUTSIDE RECORDS SUMMARY | 2024-08-27 12:50 | XMS_ITS | Clinical Summary ---
Author Organization [facility] Address [address] [place] [address] Phone Care Team Providers Care Trouble Shooting Mechanic Name Role Phone Unavailable Unavailable Unavailable Reason for Visit and Chief Complaint gynecologic annual exam - The Chief Complaint is: Annual Problems Includes: Problems addressed during this encounter and other active Problems All Visits Onset Date Resolved Date Provider Condition S tatus Breast Cancer 09/28/2013 ELIAS MCRAE MD Active Last Documented On 09/28/2013 2:50PM ; [facility] Note: S/P L breast lumpectomy Cervical Cancer 09/20/2012 ELIAS Cruz MD Active Last Documented On 09/20/2012 4:12PM ; [facility] Note: At age 26, treated with hysterecto my Depressive Disorder NEC 09/20/2012 ELIAS MCRAE MD Active Last Documented On 09/20/2012 4:08PM ; [facility] Note: takes zoloft Osteoarthritis 09/20/2012 ELIAS MCRAE MD Active Last Documented On 09/20/2012 4:09PM ; [facility] Note: uses lidoderm patch PALPITATIONS 09/20/2012 ELIAS MCRAE MD Active Last Documented On 09/20/2012 4:10PM ; [facility] Note: takes digoxin REFLUX ESOPHAGITIS 09/20/2012 ELIAS HARE MD Active Last Documented On 09/20/2012 4:08PM ; [facility] Note: takes nexium Uterine Cancer 09/20/2012 ELIAS MCRAE MD Active Last Documented On 09/20/2012 4:13PM ; [facility] Note: At age 26, treated with hysterecto my Plan of Treatment She follows with breast specialist and has MRI scheduled in March, and she also sees oncology Q3 months at [facility] for h/o breast cancer Pap done since hysterectomy was done due to cervical CIS and uterine adenocarcinoma - Last Documented On 12/05/2015 9:26AM ; [facility] Pending Tests Order Diagnosis Results Due Ordering Shahzad brewster In office procedures - *Clia Waived Labs *FIT Test (Fecal Occult Test) Encntr for market investigator exam (general) (routine) w/o abn findings 12/19/15 ELIAS MCRAE MD Last Documented On 8 8:55AM ; [facility] Instructions to patient Instructions for patient : B reast Self Exam discussed Last Documented On 6 9:12AM ; [facility] Education and Decision Aids were provided during visit for: STD screening offered and de clined Last Documented On 6 9:12AM ; [facility] Bone Mineral Density Screeni ng guidelines reviewed Last Documented On 6 9:12AM ; [facility] Patient Education: Daily page cium and vitamin D Last Documented On 6 9:12AM ; [facility] Patient Education: weight be aring exercise Last Documented On 6 9:12AM ; [facility] Colonoscopy screening guidel truong discussed Last Documented On 6 9:12AM ; [facility] Assessments Includes: Assessments from this encounter Findings - Routine pelvic exam - Last Documented On 12/05/2015 9:26AM ; [facility] - Screening Malig. Neoplasm Rectum - Last Documented On 12/05/2015 9:26AM ; [facility] Instructions Includes: Instructions from this encounter Instructions to patient Instructions for patient : B reast Self Exam discussed Last Documented On 6 9:12AM ; [facility] Education and Decision Aids were provided during visit for: STD screening offered and de clined Last Documented On 6 9:12AM ; [facility] Bone Mineral Density Screeni ng guidelines reviewed Last Documented On 6 9:12AM ; [facility] Patient Education: Daily page cium and vitamin D Last Documented On 6 9:12AM ; [facility] Patient Education: weight be aring exercise Last Documented On 6 9:12AM ; [facility] Colonoscopy screening guidel truong discussed Last Documented On 6 9:12AM ; [facility] Medical Equipment - Implanted Devices Includes: Current Devices No Medical Equipment Recorded Medications Includes: Medications discussed during this encounter and other current Medications Current Medications (continue as prescribed) Prolia 60MG/ML Subcutaneous Solution 02/16/2017 Prov ider: Diagnosis: Last Documented On 7 10:44AM By CARIDAD PEREZ ; [facility] BusPIRone HCl 5MG Oral Tablet 02/16/2017 Provider: Diagnosis: Last Documented On 7 10:23AM By ELISHA PEREZ ; [facility] Calcium + D 500-1000-40 MG-UNT-MCG Tablet Chewable Provider: Diagnosis: Last Documented On 12/05/2015 9:10AM By REBEKAH BELLA MA ; [facility] Exemestane 25 MG Tablet 08/23/2014 Provider: Diagnosis: Last Documented On 10/23/2014 9:12AM By MEGHANN MONTES Lul ; [facility] Zoloft 100 MG OR TABS 09/28/2013 Provider: Diagnosis: Last Documented On 09/28/2013 2:46PM By GER COLBY ; [facility] Zoloft 50 MG OR TABS 09/28/2013 Provider: Diagnosis: Last Documented On 09/28/2013 2:47PM By GER COLBY ; [facility] Digoxin 250 MCG OR TABS 09/20/2012 Provider: Diagnosis: takes for palpitations Last Documented On 3 3:14PM By CARLY FLORES LPN ; [facility] NexIUM 40 MG OR PACK 09/20/2012 Provider: Diagnosis: Last Documented On 3 3:14PM By CARLY FLORES LPN ; [facility] Past Medications on file Nitrofurantoin Macrocrystal 100 MG Capsule 02/08/2015 - 02/15/2015 Provider: MARC MORA BC Diagnosis: HEMATURIA NOS 1 BID USE DIRECTED W/FOOD Last Documented On 5 11:09AM By MARC MORA-BC ; [facility] Terconazole 0.4% [place] CREA 04/06/2013 - 04/13/2013 Provi ramila: ELIAS MCRAE MD Diagnosis: i applicatorful per vagina daily for 7 days Last Documented On 04/06/2013 1:23PM By ELIAS MCRAE MD ; [facility] Premarin 0.625 MG OR TABS 09/15/2011 - 09/09/2012 Prov ider: HEIDY ROBINS M.D. Diagnosis: Last Documented On 2 1:09PM By DR. HEIDY ROBINS ; [facility] MetroGel-Vaginal 0.75% [place] GEL 03/02/2011 - 03/07/2011 Provider: Diagnosis: PHONED TO [employer] [facility] [place] Last Documented On 1 10:57AM By CARLY FLORES LPN ; [facility] Flagyl 500 MG OR TABS 02/23/2011 - 03/02/2011 Provider : Diagnosis: PHONED TO BILL AT [employer] Last Documented On 1 11:03AM By CARLY FLORES LPN ; [facility] Medications Administered Includes: Administered Medications from this encounter No Administered Medications Recorded Vital Signs Includes: Vital Signs from this encounter Vital Name 12/05/2015 09:03A Blood Pressure Sitting (mmHg) 132/80 Height (in) 65.5 Weight (lb) 141 Body Mass Index (kg/m2) 23.1 Body Surface Area (m2) 1.7 Last Documented: On 12/05/2015 9:07AM ; [facility] Results Includes: Results discussed during this encounter No Results Recorded For Specified Dates History of Present Illness Includes: History of Present Illness from this encounter LACIE GUPTA is a 65 year old female. - No unusual bleeding. - No pelvic pain. - No vaginal discharge. Social History Description Last Updated In monogamous relationship 12/05/2015 Last Documented On 6 9:26AM ; [facility] Non-smoker 12/05/2015 Last Documented On 6 9:26AM ; [facility] Sexually active 12/05/2015 Last Documented On 6 9:26AM ; [facility] Smoking status : Former smoker 6 Last Documented On 6 9:26AM ; [facility] Procedures and Surgical History Includes: Procedures from this encounter Procedures Code Diagnosis Performing Provider Service L ocation Service Date Clinical summary provided to patient Last Documented On 6 9:12AM ; [facility] cervical Pap smear 90472 Last Documented On 6 9:12AM ; [facility] fecal occult blood test was negative 21801 Last Documented On 6 9:12AM ; [facility] Surgical History Last Updated History of hysterectomy [facility] 02/16/2017 Last Documented On 6 9:08AM ; [facility] Surgical / procedural histor y R knee surgery ~R thumb surgery ~L breast lumpectomy ~hernia surgery september 2013 ~surgery on porlasped bladder 05/201512/05/2015 Last Documented On 6 9:26AM ; [facility] Surgical / procedural history 12/05/2015 Last Documented On 6 9:26AM ; [facility] History of hysterectomy at age 26 2015 Last Documented On 6 9:26AM ; [facility] Surgical history unchanged 02/08/2015 Last Documented On 6 9:08AM ; [facility] History of cholecystectomy 09/20/2012 Last Documented On 6 9:08AM ; [facility] History of total abdominal hysterectomy 09/20/2012 Last Documented On 6 9:08AM ; [facility] History of tubal ligation 09/20/2012 Last Documented On 6 9:08AM ; [facility] Bilateral salpingo-oophorectomy 09/09/19 11 Last Documented On 6 9:08AM ; [facility] Breast Biopsy 09/09/2010 Last Documented On 6 9:08AM ; [facility] History of appendectomy 09/09/2010 Last Documented On 6 9:08AM ; [facility] No Dilation + Curettage 09/09/2010 Last Documented On 6 9:08AM ; [facility] No Ectopic surgery 09/09/2010 Last Documented On 6 9:08AM ; [facility] No Endometrial Ablation 09/09/2010 Last Documented On 6 9:08AM ; [facility] No history of Loop electrode excision of cervix (LEEP) 09/09/2010 Last Documented On 6 9:08AM ; [facility] No history of vaginal hysterectomy 09/09 Last Documented On 6 9:08AM ; [facility] No Laparoscopic Hysterectomy 09/09/2010 Last Documented On 6 9:08AM ; [facility] No Ovarian Cystectomy 09/09/2010 Last Documented On 6 9:08AM ; [facility] No Tonsillectomy 09/09/2010 Last Documented On 6 9:08AM ; [facility] Medical History Includes: Medical History addressed during this encounter Description Last Updated Last pap smear date 201212/05/2015 Last Documented On 6 9:26AM ; [facility] Last mammogram date: 08/201512/05/2015 Last Documented On 6 9:26AM ; [facility] Result: normal 12/05/2015 Last Documented On 6 9:26AM ; [facility] A colonoscopy was performed 2012 016 Last Documented On 6 9:26AM ; [facility] 2 12/05/2015 Last Documented On 6 9:26AM ; [facility] LMP: 1982 12/05/2015 Last Documented On 6 9:26AM ; [facility] Para 2 12/05/2015 Last Documented On 6 9:26AM ; [facility] Patient recently had a dexa scan 08/07/19 14 12/05/2015 Last Documented On 6 9:26AM ; [facility] Result: normal 12/05/2015 Last Documented On 6 9:26AM ; [facility] Family History Includes: Family History addressed [...] Active Last Documented On 7 10:23AM ; [facility] Sulfa Antibiotics Allergy 09/09/2010 A ctive Last Documented On 7 10:23AM ; [facility] Morphine Sulfate Allergy 02/16/2017 Ac tive Last Documented On 7 10:24AM ; [facility] Demerol Allergy 09/20/2012 Active Last Documented On 7 10:23AM ; [facility] Encounters Encounter Provider Location Date Check-In Time Check-Out Time Diagnosis URGENT CARE TECHNICIAN EXAM ELIAS MCRAE MD [facility] [employer]CH[employer] RETAIL REPRESENTATIVE 6 9:00AM 9:23AM Routine Pelvic Exam,Hoa Hogan. Neoplasm Rectum Clinical Notes Includes: Clinical Notes from this encounter No Clinical Notes Recorded
--- OUTSIDE RECORDS SUMMARY | 2024-08-27 12:50 | XMS_ITS ---
Care Plan - [facility] Created on: August 27, 2024 AUSTIN GUPTA : 1950 Sex: Female Author Organization [facility] Address [address] [place] [address] Phone Care Team Providers Care Geriatric Social Worker Name Role Phone Unavailable Unavailable Unavailable
--- OUTSIDE RECORDS SUMMARY | 2024-08-27 12:50 | XMS_ITS | Continuity of Care Document ---
Author Organization [facility] Address [address] [place] [address] Phone Care Team Providers Care Elementary E[employer] Teacher Name Role Phone Kalani Mars DPT Unavailable Unavailable Procedures Procedure Date THERAPEUTIC EXERCISES MANUAL THERAPY FUNC ACTIVITY PT EVALUATION THERAPEUTIC EXERCISES NEUROMUSCULAR RE-ED MANUAL THERAPY FUNC ACTIVITY Advance Directives Directive Yes / No Effective Date File Name No Information Encounters Encounter Description Practice Location Reason(s) For Visit Diagnoses Date Provider Providers Copied on Encounter [facility], [address], [place], [place], [id number], tel:[phone] Kamran No Information 6 Madisyn Uriarte. [address] [facility], [address], [facility], [place]. tel: [phone] [facility] [address], [place], [place], [id number], tel:[phone] Kamran No Information 6 Madisyn Uriarte. [address] [facility], [facility] [address], [place], [facility], . tel: [phone] Referring Provider: Leena Colon, [address], [place], [address]. tel:[phone] [facility], [address], [place], [place], [id number], [place] tel:[phone] [facility]ence[facility] 6 Madisyn Uriarte. [address] [facility], [address], [place], [address], [place]. tel:[phone] Referring Provider: Leena Colon, [address], [place], [address]. tel:[phone] Family History Family Member Type Diagnosis Age At Onset No Information Payers Payer name Insurance type Covered libertarian ID Authorhaydee davis(s) [facility] [id number] Social History Type Description Quantity Date Captured [...]
--- NOTE | 2024-08-27 13:16 | ED.URI ---
HPI - URI/Sore Throat General Chief Complaint: Upper Respiratory Infection Stated Complaint: upper respiratory Time Seen by Provider: 08/27/24 13:16 Source: patient, RN notes reviewed and old records reviewed Mode of arrival: ambulatory Limitations: no limitations History of Present Illness HPI Narrative: patient with COPD, non compliant with prescribed inhalers, presents with 5 day history of productive cough that is worsening. She denies any wheezing does report pain with cough. She is unsure if fever status. Reports that she is more tired than normal. She is not in any distress on arrival Related Data Home Medications ?Medication ?Instructions ?Recorded ?Confirmed ?Last Taken ?Type buspirone 5 mg tablet 5 mg PO DAILY 04/29/21 04/19/22 Unknown History escitalopram oxalate 20 mg tablet mg 05/27/24 Unknown History Allergies Allergy/AdvReac Type Severity Reaction Status Date / Time Sulfa (Sulfonamide Allergy Severe Hives Verified 08/27/24 12:55 Antibiotics) morphine Allergy Rash Verified 08/27/24 12:55 meperidine (From Demerol) AdvReac Intermediate Vomiting Verified 08/27/24 12:55 Review of Systems Review of Systems: All systems reviewed & are unremarkable except as noted in HPI and below Constitutional: Constitutional: Reports no additional constitutional complaints and Reports lethargy ENT: Reports system reviewed and no additional complaints, except as documented Cardiovascular: Cardiovascular: Reports no additional cardiovascular complaints Respiratory: Respiratory: Reports no additional respiratory complaints, Reports change in phlegm color, Reports chest congestion, Reports cough and Reports excessive phlegm production Gastrointestinal: Gastrointestinal: Reports no additional gastrointestinal complaints [facility] Past Medical History Medical History Acid reflux Arthritis Breast cancer 2013 Depression Heart palpitations Vaginal delivery x2 Surgical History Surgical History History of bilateral salpingo-oophorectomy 1975, Age 26 History of lumpectomy 2013, left breast History of hysterectomy 1975, Age 26 Family History Family History Mother Lung cancer Grandparent Cerebrovascular accident Social History Social History Smoking status: Former smoker Alcohol intake: never Substance use: never Comments At the time of my signature, I reviewed and agree with the nursing past medical, surgical, social, and family history. There is no relevant family history pertinent to the patient complaint. Exam Const: General: cooperative, no acute distress, alert and awake Orientation/consciousness: oriented to person, oriented to place and oriented to time HENMT: Head: normal to inspection Mouth: Yes moist mucous membranes Resp: Effort & Inspection: normal respiratory effort and able to speak in complete sentences Auscultation: clear to auscultation bilaterally, no crackles, no rales, no rhonchi, wheezes (faint) and diminished lung sounds Cardio: Palpation: normal PMI Rate: regular rate Rhythm: regular rhythm Heart sounds: S1 normal heart sound present and S2 normal heart sound present Neuro: General: oriented to person, oriented to place and oriented to time Cranial nerves: Yes CN's II-XII intact bilaterally Psych: Appearance: grossly normal Thought process: Normal thought process present Insight: Good insight present (Psych) Judgement: Good judgement present (Psych) Course Course Level of Care: Express Care Visit Vital Signs Vital signs: Vital Signs Temperature 97.9 F 08/27/24 12:49 Pulse Rate 92 08/27/24 12:49 Respiratory Rate 20 08/27/24 12:49 Blood Pressure 129/74 08/27/24 12:49 Pulse Oximetry 98 08/27/24 12:49 Oxygen Delivery Room Air 08/27/24 12:49 Temperature 97.9 F 08/27/24 12:49 Pulse Rate 92 08/27/24 12:49 Respiratory Rate 20 08/27/24 12:49 Blood Pressure 129/74 08/27/24 12:49 Pulse Oximetry 98 08/27/24 12:49 Oxygen Delivery Room Air 08/27/24 12:49 Reviewed MDM - URI/Sore Throat MDM Narrative Medical decision making narrative: History and exam consistent with bronchitis. Given patient history of COPD and noncompliance with inhalers will cover with azithromycin for an added an anti-inflammatory benefits in addition to prednisone. She is encouraged to start using her inhalers as prescribed. She agrees to do so. Discharge instructions reviewed with patient, as well as provided in writing per nursing staff. The instructions also include specific and strict return/GO TO THE ER as well as f/u information. All questions have been answered, and the patient deny any further questions with discharge and discharge plan. Some parts of this dictation were generated by voice recognition software and may contain typographical and/or grammatical inaccuracies. Differential Diagnosis Differential diagnosis: Likely upper respiratory infection, croup, viral infection and bronchitis Medical Records Attestation: I reviewed the patient's medical records. Lab Data Attestation: I reviewed the patient's lab results. Discharge Plan Discharge Clinical Impression: Bronchitis Patient Disposition: Home, Self-Care Condition: Stable Instructions: Antibiotic Form, Acute Bronchitis (ED) Additional Instructions: take all medications as prescribed, follow-up with primary care provider. Emergency department for new or worsening symptoms. Please begin using your inhalers that you already have as prescribed Patient Language: Guyanese Prescriptions: New azithromycin 250 mg tablet See Rx Instructions .ROUTE .COMPLEX Qty: 6 0RF Rx Instructions: For 250 mg dose pack: take 500 mg today (day 1), then 250 mg for 4 days (days 2-5) prednisone 50 mg tablet 50 mg PO DAILY Qty: 5 0RF No Action escitalopram oxalate 20 mg tablet buspirone 5 mg tablet 5 mg PO DAILY Follow-up/Referrals: Blaine,MD Jarod [Primary Care Provider] - 3 Days Time of Disposition: 13:20
== END 2024-08-27 13:25 | disposition home or self-care (01) ==
PROVIDERS: Emergency Provider Nurse Practitioner Family; PCP Internal Medicine Infectious Disease
DX: J40 Bronchitis, not specified as acute or chronic (principal); J44.9 Chronic obstructive pulmonary disease, unspecified; K21.9 Gastro-esophageal reflux disease without esophagitis; M19.90 Unspecified osteoarthritis, unspecified site; Z85.3 Personal history of malignant neoplasm of breast; Z90.12 Acquired absence of left breast and nipple; Z87.891 Personal history of nicotine dependence
CPT/HCPCS: 99213; G0463